=== PATIENT | female | born 1935 | race Caucasian/White ===

== ENCOUNTER 2019-04-14 10:00 | Outpatient (RCR) | payer MEDICARE, SELFPAY ==
--- NOTE | 2019-01-07 14:25 | PCSTNOTE ---
The treatment documented on this account is a continuation of the treatment documented on visit number [id number] in [employer] EMR. Please see documentation on both accounts to view progress. The Plan of Care has been transitioned and updated within the new V#. I have addressed and agree with the discipline specific Problems, Interventions, and Goals for the current certification period. Completed interventions, outcomes, and problems have been marked as Inactive to facilitate the copying of the Care plan routine for recurring accounts.
--- NOTE | 2019-01-10 11:20 | PCPTNOTE ---
The treatment documented on this account is a continuation of the treatment documented on visit number [id number] in [employer]MR. Please see documentation on both accounts to view progress. The Plan of Care has been transitioned and updated within the new V#. I have addressed and agree with the discipline specific Problems, Interventions, and Goals for the current certification period. Completed interventions, outcomes, and problems have been marked as Inactive to facilitate the copying of the Care plan routine for recurring accounts.
--- NOTE | 2019-01-14 10:20 | OTOPEVAL ---
OT RE-EVALUATION 01/14/19 Thank you for referring this patient to [facility]. Recommend continued skilled OT 2x/week for 4 weeks. Please review, sign, date and return this re-evaluation summary KIERSTEN. I agree with and certify that the following plan of care is medically necessary. Referring Physician Date *OT Outpatient Re-Evaluation Start: 01/14/19 07:55 Document 01/14/19 07:56 JANETTE (Rec: 01/14/19 10:11 JANETTE) Re-Evaluation Information Subjective Information Functional gains since SOC: As Reported By Patient/ Patient and daughter report Family improved ability to use B hands to press keys on piano ( wasn't able to with L hand at all), using left hand to put shoes, able to wash herself in the shower with B hands, combing hair, improved coloring abilities, and significantly better with transfers. Pain Assessment Timing of Pain Assessment Timing of Pain Assessment Re-assessment Pain Scale Pain Scale Used Numeric (1 - 10) Self Report Pain Assessment Left Groin Reported Pain Level 3 Pain Description Aching,Dull Pain Aggravating Factors Walking Pain Relief Interventions Used By Medication Patient Pain Score Pain Score 3: Self Report Upper Extremity Range of Motion General Upper Extremity Range of Motion Reason Not Measured WNL/Left,WNL/Right Upper Extremity Muscle Strength Testing Scapular/Shoulder Left Shoulder Flexion Strength 4 Good Shoulder Extension Strength 4 Good Shoulder Abduction Strength 4- Good - Shoulder Adduction Strength 4+ Good + Right Shoulder Flexion Strength 4+ Good + Shoulder Extension Strength 4+ Good + Shoulder Abduction Strength 4 Good Shoulder Adduction Strength 4+ Good + Elbow/Forearm Left Elbow Flexion Strength 4 Good Elbow Extension Strength 4 Good Forearm Pronation Strength 4 Good Forearm Supination Strength 4 Good Right Elbow Flexion Strength 4+ Good + Elbow Extension Strength 4+ Good + Forearm Pronation Strength 4+ Good + Forearm Supination Strength 4+ Good + Wrist Strength Left Wrist Flexion Strength 4- Good - Wrist Extension Strength 4- Good - Wrist Radial Deviation 4- Good - Wrist Ulnar Deviation 4- Good - Right Wrist Flexion Strength 4 Good Wrist Extension Strength 4 Good Wrist Radial Deviation 4 Good Wrist Ulnar Deviation 4 Good
--- NOTE | 2019-01-14 14:33 | STOPEVAL ---
Thank you for referring this patient to [facility]. Continued Speech Therapy is recommended 2xweek/for 4 weeks. Please review, sign, date and return this plan of care KIERSTEN. I agree with and certify that the following plan of care is medically necessary. Referring Physician Date *ST Outpatient Evaluation Start: 01/14/19 10:09 Freq: Status: Active Protocol: Document 01/14/19 10:10 BECMANNYRT (Rec: 01/14/19 11:03 [email or web address]) Therapy Assessment Status Assessment Status Assessment Status Re-evaluation Pain Assessment Timing of Pain Assessment Timing of Pain Assessment Re-assessment Self Report Self Report Pain Level 0 Pain Score Pain Score 0: Self Report Language Evaluation Auditory Comprehension Body Part Identification (% Accuracy (0- 100 100)) Object Identification (% Accuracy (0-100 100 )) Simple Yes/No Questions (% Accuracy (0- 100 100)) Complex Yes/No Questions (% Accuracy (0- 100 100)) Auditory Comprehension of Simple 80 Paragraphs (% Accuracy (0-100)) Response Latency Mild Deficits Additional Auditory Comprehension Improving accuracy and speed Comments of processing Reading Comprehension Numeral Comprehension (% Accuracy (0-100 100 )) Numeral Comprehension Comments slow but accurate Single Word Comprehension (% Accuracy (0 100 -100)) Comprehension: 3-4 Words (% Accuracy (0- 100 100)) Comprehension: 5-7 Words (% Accuracy (0- 75 100)) Overall Reading Comprehension Ability Moderate Deficits Comments Related to Reading Reading ability is improving Comprehension Verbal Expression Connected Speech No Impairments Comments Related to Verbal Expression occasional word substitutions exhibited.Pt is aware and is able to self correct. Written Expression Ability to Copy 100% accuracy Numbers to Dictation (% Accuracy (0-100) 80 ) Comments Related to Written Expression pt is able to write to dictation but requires max cues. Cognitive Evaluation Orientation/Memory Assessment Temporal Orientation 100 Query Text:% Accuracy Spatial/Environmental Orientation 100 Query Text:% Accuracy Overall Orientation and Memory within functional limits Problem Solving Overall Problem Solving Skills within functional limits ST Clinical Summary Clinical Summary Clinical Summary Overall, the pt has achieved nearly al
--- NOTE | 2019-01-14 15:07 | PTOPEVAL ---
Thank you for referring Ashly Baxter to [facility]. Please review, sign, date and return this plan of care KIERSTEN. I agree with and certify that the following plan of care is medically necessary. Referring Physician Date *PT Outpatient Evaluation Start: 01/14/19 11:00 Freq: Status: Active Protocol: Document 01/14/19 11:35 [facility] (Rec: 01/14/19 12:09 [facility] [id number]) Therapy Assessment Status Assessment Status Assessment Status Re-evaluation Pain Assessment Self Report Self Report Pain Level 0 Pain Score Pain Score 0: Self Report Lower Extremity Muscle Strength Testing Hip Strength Left Hip Flexion Strength 4- Good - Hip Extension Strength 3- Fair - Hip Abduction Strength 3 Fair Knee Strength Left Knee Flexion Strength 4 Good Knee Extension Strength 4 Good Balance Assessment Rogers Balance Assessment Sitting to Standing Independent w/Hands Unsupported Stance Ability Supervision- 2 minutes Sitting Unsupported, Feet on Floor Safely- 2 minutes Standing to Sitting Assist, Control w/Hands Transfer Ability Supervision, Verbal Cues Unsupported Stance- Eyes Closed Supervision, 10 seconds Unsupported Stance- Feet Together Supervision to maintain Reaching Forward while Standing Safely, 2 inches supervisor modern languages Object From Floor Supervision Look Behind Shoulder - Standing Supervision w/Turning Turning 360 Degrees Supervision/Verbal Cues Unsupported Stance, Alternating Feet on Assist to Prevent Fall Stair Unsupported Tandem Stance Assist to Step-15 seconds Unilateral Leg Stance Unable,assist to not fall ROGERS Balance Evaluation Total Score (/56 26 points) Comments plus 1 for turning over shoulder = 27/56 (increased from 3) Time Up Go (TUG) Timed Up and Go Test (TUG) (Seconds) 30 Assistive Devices Walker, Wheeled 5 Time Sit to Stand Time in Seconds 17.18 5 Time Sit to Stand Comments with arm rests Query Text:Normative Data: If Greater Than 15 Seconds, 74% Increase Risk for Recurrent Falls PT Clinical Summary Clinical Summary Protocol: PTEVCODE Clinical Summary Ashly is here ~8 weeks s/p CVA affecting left sided limbs. She also experiences decreased attention to left side and mild memory impairments. She presents today with significant increase in strength and balance compared t
--- NOTE | 2019-01-21 08:26 | PCPTNOTE ---
Patient called & cancelled scheduled appointment this date due to weather
--- NOTE | 2019-01-21 10:20 | PCOTNOTE ---
Pt daughter called and cancelled appt this date 04/13 didn't want to take her out in 10 degree weather
--- NOTE | 2019-02-10 11:26 | OTOPEVAL ---
OT RE-EVALUATION NOTE 02/10/19 Thank you for referring this patient to [facility]. As noted below, Ashly is making progress toward all of her goals. She will benefit from continued skilled OT 2x/week for 4 weeks. Please review, sign, date and return this plan of care KIERSTEN. I agree with and certify that the following plan of care is medically necessary. Referring Physician Date Attending Provider: JAYA RICKS MD *OT Outpatient Re-Evaluation Therapy Assessment Status Assessment Status Re-evaluation Evaluation Information Problem Diagnosis CVA Onset 11/21/18 Additional Evaluation Detail Vee Limon , has been participating in outpatient OT since 12/17/18 following a stroke. OT has been focusing on oculo-motor and visual perceptual skills, UE strengthening, and functional coordination to facilitate return to ADL independence. Subjective Information The patient and her daughter Query Text:As Reported By Patient/ report improved abilities with Family donning socks and shoes, handwriting, toileting, transfers, and her balance during mobility with a wheeled walker. Pain Assessment Timing of Pain Assessment Timing of Pain Assessment Re-assessment Self Report Self Report Pain Level 0 Pain Score Pain Score 0: Self Report Upper Extremity Range of Motion General Upper Extremity Range of Motion Reason Not Measured WNL/Left,WNL/Right Gross Upper Extremity Range of Motion BUE AROM is WNL Comments Upper Extremity Muscle Strength Testing Scapular/Shoulder Left Shoulder Flexion Strength 4 Good Shoulder Extension Strength 4+ Good + Shoulder Abduction Strength 4- Good - Shoulder Adduction Strength 4+ Good + Right Shoulder Flexion Strength 4+ Good + Shoulder Extension Strength 4+ Good + Shoulder Abduction Strength 4+ Good + Shoulder Adduction Strength 4+ Good + Elbow/Forearm Left Elbow Flexion Strength 4 Good Elbow Extension Strength 4 Good Forearm Pronation Strength 4 Good Forearm Supination Strength 4 Good Right Elbow Flexion Strength 4+ Good + Elbow Extension Strength 4+ Good + Forearm Pronation Strength 4+ Good + Forearm Supination Strength 4+ Good + Wrist Strength Left Wrist Flexion Strength 4 Good Wrist Extension Strength 4 Good Wrist Radial Deviation 4 Good Wrist Ulnar Deviation 4 Good Wrist Strength Comme
--- NOTE | 2019-02-10 14:32 | PTOPEVAL ---
PHYSICAL THERAPY PLAN OF CARE UPDATE AND PROGRESS REPORT Thank you for referring this patient to [facility]. Ashly is scheduled to be seen 2x/week for 4 more weeks. Please review, sign, date and return this plan of care KIERSTEN. I agree with and certify that the following plan of care is medically necessary. Referring Physician Date Assessment Status Re-evaluation Evaluation Information Problem Subjective Information Ashly is participating in Query Text:As Reported By Patient/ outpatient PT since 12/17/18 Family following a CVA. She has no complaints other than left groin pain. Her daughter is taking her to see the physician regarding the groin pain. Ashly and her daughter see her improvements in function, gait, balance, and stair climbing. Pain Assessment Left Groin Reported Pain Level 2 Hip Strength Left Hip Flexion Strength 4 Good Hip Extension Strength 3 Fair Hip Abduction Strength 3 Fair Knee Strength Left Knee Flexion Strength 4+ Good + Knee Extension Strength 4+ Good + Balance Assessment Rogers Balance Assessment Sitting to Standing Independent w/Hands Unsupported Stance Ability Supervision- 2 minutes Sitting Unsupported, Feet on Floor Safely- 2 minutes Standing to Sitting Assist, Control w/Hands Transfer Ability Supervision, Verbal Cues Unsupported Stance- Eyes Closed Supervision, 10 seconds Unsupported Stance- Feet Together Supervision to maintain Reaching Forward while Standing Safely, 2 inches occupational therapy specialist Object From Floor Supervision Look Behind Shoulder - Standing Turns Sideways Only Turning 360 Degrees Supervision/Verbal Cues Unsupported Stance, Alternating Feet on 2 Steps w/Minimum Assist Stair Unsupported Tandem Stance Assist to Step-15 seconds Unilateral Leg Stance Lifts Leg/Unable to Hold ROGERS Balance Evaluation Total Score (/56 32 points) Comments 32/56 (increased from 56) Timed Up and Go Test (TUG) 27seconds (improved from 30second) Assistive Devices Walker, Wheeled 5 Time Sit to Stand Time in Seconds 17.75seconds 5 Time Sit to Stand Comments with arm rests Query Text:Normative Data: If Greater Than 15 Seconds, 74% Increase Risk for Recurrent Falls Gait Assessment Gait Assessment Ambulation Assistive Devices Walker, Wheeled Weight Bearing Status - Left Full Weight Bearing Status - Right Full Maintains Weight Bearing Status Yes Ambulation Ability Contact Guard
--- NOTE | 2019-02-10 16:45 | STOPEVAL ---
Thank you for referring this patient to [facility]. Continued Speech Therapy is recommended x2/week 4. Please review, sign, date and return this plan of care KIERSTEN. I agree with and certify that the following plan of care is medically necessary. Referring Physician Date Admitting Provider: Attending Provider: PHYSICIAN NOT ON STAFF Referring Provider: *ST Outpatient RE-Evaluation Start: 01/14/19 10:09 Freq: Status: Active Protocol: Document 02/10/19 11:47 BECHERERT (Rec: 02/10/19 12:00 BECHERERT [email or web address]) Therapy Assessment Status Assessment Status Assessment Status Re-evaluation Outpatient Past Medical History Neurological History Hx Cerebrovascular Accident (CVA) Yes Evaluation Information Problem Diagnosis CVA Onset 11/21/18 Additional Evaluation Detail Vee Limon , has been participating in outpatient ST since 12/17/[address] ST has been focusing on auditory and reading comprehension as well as written expression. Subjective Information The patient and her daughter Query Text:As Reported By Patient/ report improved abilities Family written expression and reading comprehension. Prior Level of Function Activity Level (Last 3 Months) Hand Dominance Right Home Setting Home Type House Living Situation With Adult Child Prior Cognition/Communication Prior Communication Level No Impairment Prior Cognitive Function Able to Function Independently Prior Ability to Handle Finances Independent Pain Assessment Timing of Pain Assessment Timing of Pain Assessment Re-assessment Self Report Self Report Pain Level 0 Pain Scale Pain Scale Used Numeric (1 - 10) Self Report Pain Assessment Left Groin Reported Pain Level 0 Pain Score Pain Score 0: Self Report Language Evaluation Auditory Comprehension Auditory Comprehension of Complex 50 Directives (% Accuracy (0-100)) Auditory Comprehension of Simple 80 Paragraphs (% Accuracy (0-100)) Response Latency Mild Deficits Additional Auditory Comprehension Pt requires many repetitions & Comments extra time in order to comprehend/process information . Reading Comprehension Numeral Comprehension (% Accuracy (0-100 100 )) Numeral Comprehension Comments slow but accurate Comprehension: 5-7 Words (% Accuracy (0- 90 100)) Comprehension: 8-10 Words (% Accu
--- NOTE | 2019-02-13 13:50 | PCOTNOTE ---
Pt arrived for skilled OT tx this date. Pt's daughter asked therapist to check pt's BP 2/2 inc BP over last few days. Pt's BP was 187/105. Pt's MD was called and 's office stated that they were sending out a prescription for BP medication and pt should start taking meds tomorrow morning. Pt's daughter was advised of what MD's office stated. Pt was sent home with daughter and no therapy was performed this date. Pt's daughter was advised to take pt's BP a few more times today and if BP gets higher to take pt to ER.
--- NOTE | 2019-02-18 08:03 | PCOTNOTE ---
Pt's daughter called and cancelled appt this date 2/2 pt needed adjustment on pacemaker.
--- NOTE | 2019-02-18 09:16 | PCPTNOTE ---
Patient called & cancelled scheduled appointment this date due to medical procedure.
--- NOTE | 2019-02-20 07:53 | PCPTNOTE ---
Patient called & cancelled scheduled appointment this date due to having pacemaker placed.
--- NOTE | 2019-02-20 15:48 | PCSTNOTE ---
No ST this week related to medical issues and brief hospitalization.
--- NOTE | 2019-02-25 09:09 | PCPTNOTE ---
Patient called & cancelled scheduled appointment this date due to weather
--- NOTE | 2019-02-27 10:52 | OTOPEVAL ---
OT RE-EVALUATION 02/27/19 Thank you for referring this patient to [facility]. Continued skilled OT is indicated 2x/week for 4 weeks. Please review, sign, date and return this plan of care KIERSTEN. I agree with and certify that the following plan of care is medically necessary. Referring Physician Date Attending Provider: Moustapha Pratt MD *OT Outpatient Re-Evaluation Therapy Assessment Status Assessment Status Re-evaluation Outpatient Past Medical History Neurological History Hx Cerebrovascular Accident (CVA) Yes Evaluation Information Problem Diagnosis CVA Onset 11/21/18 Additional Evaluation Detail Vee Limon , has been participating in outpatient OT since 12/17/18 following a stroke. OT has been focusing on oculo-motor and visual perceptual skills, ADL retraining, UE strengthening, and functional coordination to facilitate return to PLOF and independence with ADLs. Subjective Information The patient reports improved Query Text:As Reported By Patient/ abilities with completing LB Family dressing on her own, handwriting skills, improved ability to toilet on her own, and increased bed mobility. Pain Assessment Timing of Pain Assessment Timing of Pain Assessment Re-assessment Self Report Self Report Pain Level 0 Pain Score Pain Score 0: Self Report Upper Extremity Range of Motion General Upper Extremity Range of Motion Reason Not Measured WNL/Left,WNL/Right Gross Upper Extremity Range of Motion BUE AROM is WNL, left shoulder Comments only tested to 90* due to pacemaker precautions. Upper Extremity Muscle Strength Testing Scapular/Shoulder Left Shoulder Strength Comments Not tested due to pacemaker precautions. Right Shoulder Flexion Strength 4+ Good + Shoulder Extension Strength 4+ Good + Shoulder Abduction Strength 4 Good Shoulder Adduction Strength 4+ Good + Elbow/Forearm Left Elbow Flexion Strength 4 Good Elbow Extension Strength 4 Good Forearm Pronation Strength 4- Good - Forearm Supination Strength 4- Good - Right Elbow Flexion Strength 4+ Good + Elbow Extension Strength 4+ Good + Forearm Pronation Strength 4+ Good + Forearm Supination Strength 4+ Good + Wrist Strength Left Wrist Flexion Strength 4 Good Wrist Extension Strength 4 G
--- NOTE | 2019-02-27 12:44 | PTOPEVAL ---
PHYSICAL THERAPY PLAN OF CARE UPDATE AND PROGRESS REPORT Thank you for referring this patient to [facility]. Continue PT for 2x/week for 4 weeks. Please review, sign, date and return this plan of care KIERSTEN. I agree with and certify that the following plan of care is medically necessary. Referring Physician Date Re-evaluation Outpatient Past Medical History Neurological History Hx Cerebrovascular Accident (CVA) Yes Evaluation Information Problem Diagnosis CVA Onset 11/21/18 Subjective Information Ashly Baxter has yunior Query Text:As Reported By Patient/ participating in PT since 12/17 Family . She had a pacemaker placed 02/17/19 and she has been cleared by physician to return to therapy. She and caregiver report she had a bad week last week, but is doing much better now. She also received an antibiotic last week. Rogers Balance Assessment Sitting to Standing Independent w/Hands Unsupported Stance Ability Supervision- 2 minutes Sitting Unsupported, Feet on Floor Safely- 2 minutes Standing to Sitting Assist, Control w/Hands Transfer Ability Safely, Hand Use Unsupported Stance- Eyes Closed Supervision, 10 seconds Unsupported Stance- Feet Together Supervision to maintain Reaching Forward while Standing Safely, 2 inches supervisor asbestos removal Object From Floor Supervision Look Behind Shoulder - Standing Shifts Weight Unilateral Turning 360 Degrees Supervision/Verbal Cues Unsupported Stance, Alternating Feet on 4 Steps w/Supervision Stair Unsupported Tandem Stance Assist to Step-15 seconds Unilateral Leg Stance Lifts Leg/Unable to Hold ROGERS Balance Evaluation Total Score (/56 35 points) Time Up Go (TUG) Timed Up and Go Test (TUG) (Seconds) 22 Assistive Devices Walker, Wheeled Comments improved from 27seconds 5 Time Sit to Stand Time in Seconds 13.91 5 Time Sit to Stand Comments with arm rests; improved from Query Text:Normative Data: If Greater 17.75seconds Than 15 Seconds, 74% Increase Risk for Recurrent Falls Gait Assessment 2 Minute Walk Total Distance Walked (feet) 245 2 Minute Walk Test Comments increased from 208 Clinical Summary Patient presents for PT re- evaluation after being hospitalized for pacemaker placement. Since her last re- evaluation she has improved toward improved balance,
--- NOTE | 2019-02-27 17:41 | STOPEVAL ---
OUTPATIENT SPEECH THERAPY PLAN OF CARE/PROGRESS REPORT Thank you for referring this patient to [facility]. Please review, sign, date and return this plan of care KIERSTEN. I agree with and certify that the following plan of care is medically necessary. Referring Physician Date Admitting Provider: Attending Provider: PHYSICIAN NOT ON STAFF Referring Provider: ANDREW Outpatient RE Evaluation Start: 01/14/19 10:09 Freq: Status: Active Protocol: Document 02/27/19 09:52 KELVIN (Rec: 02/27/19 10:03 BECHERERT [email or web address]) Therapy Assessment Status Assessment Status Assessment Status Re-evaluation Outpatient Past Medical History Neurological History Hx Cerebrovascular Accident (CVA) Yes Prior Level of Function Activity Level (Last 3 Months) Hand Dominance Right Home Setting Home Type House Living Situation With Adult Child Prior Cognition/Communication Prior Communication Level No Impairment Prior Cognitive Function Able to Function Independently Prior Ability to Handle Finances Independent Pain Assessment Timing of Pain Assessment Timing of Pain Assessment Pre-Treatment Self Report Self Report Pain Level 0 Pain Scale Pain Scale Used Numeric (1 - 10) Self Report Pain Assessment Left Groin Reported Pain Level 0 Pain Score Pain Score 0: Self Report Language Evaluation Auditory Comprehension Auditory Comprehension of Complex 90 Directives (% Accuracy (0-100)) Auditory Comprehension of Simple 80 Paragraphs (% Accuracy (0-100)) Auditory Comprehension of Moderate 40 Paragraphs (% Accuracy (0-100)) Overall Auditory Comprehension Ability Mild Deficits Reading Comprehension Name Recognition Yes Comprehension: 8-10 Words (% Accuracy (0 80 -100)) Comprehension of Simple Paragraphs (% 88 Accuracy (0-100)) Comprehension of Moderate Paragraphs (% 50 Accuracy (0-100)) Comprehension of Functional Reading mild/mod Materials Verbal Expression Connected Speech No Impairments Response Latency Moderate Deficits Comments Related to Verbal Expression Occasional word substitutions are exhibited. Pt is aware and is able to self correct. Written Expression Phrase Production 60 Functional Writing Biographical info: 60% accuracy Overall Written Expression Ability Moderate Deficits Speech Therapy Teaching Adult Speech Therapy Teaching Swallowing/Communication Education Topic Aphasia As Pertains to Caregiver Communications,Test Results Recipient(s) of Teaching Patient,Primary Caregiv
--- NOTE | 2019-03-06 10:37 | PCOTNOTE ---
Pt arrived for skilled OT treatment. Pt's caregiver stated that pt had syncopal episode yesterday after pt finished her shower. Pt's MD was called, pt was not take to ER 2/. Therapist checked pt's BP prior to treatment. Pt's BP was 149/80, HR 59. Discussed that with pt's recent Heart Monitor placement, pt's HR should no fall below 60. Therapist sent pt home 04/13 HR prior to any activity/exercise. Pt's caregiver was asked to follow up with pt's doctor/family for further evaluation.
--- NOTE | 2019-03-06 11:15 | PCPTNOTE ---
Patient's appointment cancelled this date due to health concern. Please see OT note for more details.
--- NOTE | 2019-03-27 11:06 | PTOPEVAL ---
PHYSICAL THERAPY PLAN OF CARE UPDATE AND PROGRESS REPORT Thank you for referring this patient to [facility]. Vee will continue PT 2x/week for 4 weeks. Please review, sign, date and return this plan of care KIERSTEN. I agree with and certify that the following plan of care is medically necessary. Referring Physician Date Re-evaluation Outpatient Past Medical History Neurological History Hx Cerebrovascular Accident (CVA) Yes Evaluation Information Problem Diagnosis CVA Onset 11/21/18 Additional Evaluation Detail BP prior to treatment: 147/69. BP after treatment: 136/71 Subjective Information Ashly Baxter has yunior Query Text:As Reported By Patient/ participating in PT since 12/17 Family . Vee had an injection to her left hip last week and has had no pain since then. She and caregiver report on home exercises and are eager to work. Caregiver states she eats well and has snacks also. Pain Score 0: Self Report Hip Strength Left Hip Flexion Strength 4- Good - Hip Extension Strength 3 Fair Hip Abduction Strength 3 Fair Knee Strength Left Knee Flexion Strength 4+ Good + Knee Extension Strength 4+ Good + Balance Assessment Sitting to Standing Independent w/Hands Unsupported Stance Ability Supervision- 2 minutes Sitting Unsupported, Feet on Floor Safely- 2 minutes Standing to Sitting Assist, Control w/Hands Transfer Ability Safely, Hand Use Unsupported Stance- Eyes Closed Supervision, 10 seconds Unsupported Stance- Feet Together Supervision to maintain Reaching Forward while Standing Safely, 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 From Floor Supervision Look Behind Shoulder - Standing Shifts Weight Unilateral Turning 360 Degrees Supervision/Verbal Cues Unsupported Stance, Alternating Feet on 2 Steps w/Minimum Assist Stair Unsupported Tandem Stance Small Step- 30 seconds Unilateral Leg Stance Lifts Leg/Unable to Hold ROGERS Balance Evaluation Total Score (/56 35 points) Comments 1month ago = 35/56 Time Up Go (TUG) 18seconds Assistive Devices Walker, Wheeled Comments improved from 22seconds 5 Time Sit to Stand Time in Seconds 14.06 5 Time Sit to Stand Comments with arm rests; (was 13.75 4 Query Text:Normative Data: If Greater weeks ago) Than 15 Seconds, 74% Increase Risk for Recurrent Falls Gait Assessment 2 Minute Walk Total Distance Walked 256ft 2 Minute Walk Test Comments increased from 245
--- NOTE | 2019-03-27 11:48 | OTOPEVAL ---
OCCUPATIONAL THERAPY RE-EVALUATION NOTE 03/27/2019 Thank you for referring this patient to [facility]. As described below, continued skilled OT is indicated 2x/week for 4 weeks. Please review, sign, date and return this re-evaluation note KIERSTEN. I agree with and certify that the following plan of care is medically necessary. Referring Physician Date Attending Provider: MIESHA BRIDGES MD *OT Outpatient Re-Evaluation Evaluation Information Problem Diagnosis s/p CVA Onset 11/21/18 Additional Evaluation Detail Vee Limon , has been participating in outpatient OT since 12/17/18 due to residual deficits following CVA. OT has been focusing on UB strengthening, fine motor coordination, and return to leisure activities such as leonie. Subjective Information Patient and her caregiver Query Text:As Reported By Patient/ report good compliance with Family home exercises. She has been working on her [employer] project daily and continues to get better with it. She has been improving with playing the piano, dressing, and handwriting also. Pain Assessment Timing of Pain Assessment Timing of Pain Assessment Re-assessment Self Report Self Report Pain Level 0 Pain Score Pain Score 0: Self Report Upper Extremity Range of Motion General Upper Extremity Range of Motion Reason Not Measured WNL/Left,WNL/Right Upper Extremity Muscle Strength Testing Scapular/Shoulder Left Shoulder Flexion Strength 4 Good Shoulder Extension Strength 4+ Good + Shoulder Abduction Strength 4+ Good + Shoulder Adduction Strength 4+ Good + Right Shoulder Flexion Strength 4+ Good + Shoulder Extension Strength 4+ Good + Shoulder Abduction Strength 4 Good Shoulder Adduction Strength 4+ Good + Elbow/Forearm Left Elbow Flexion Strength 4+ Good + Elbow Extension Strength 4+ Good + Forearm Pronation Strength 4 Good Forearm Supination Strength 4 Good Elbow/Forearm Strength Comments Flexion/Extension improved from 4/5. Forearm roation improved from 4-/5. Right Elbow Flexion Strength 4+ Good + Elbow Extension Strength 4+ Good + Forearm Pronation Strength 4+ Good + Forearm Supination Strength 4+ Good + Elbow/Forearm Strength Comments (R) elbow/forearm remained WFL
--- NOTE | 2019-03-27 13:45 | STOPEVAL ---
Addendum entered by MAXIM Santos 03/27/19 13:54: OUTPATIENT SPEECH THERAPY PROGRESS REPORT AND CARE PLAN UPDATE: Original Note: Thank you for referring this patient to [facility]. Speech Therapy re evaluation on this date revealed that pt is progressing in all areas and is achieving short term goals. Continuance of ST is therefore warranted as pt continues to present with potential for further improvement. It is recommended that ST continue x2 week 4. Please review, sign, date and return this plan of care KIERSTEN. I agree with and certify that the following plan of care is medically necessary. Referring Physician Date Attending Provider: PHYSICIAN NOT ON STAFF Referring Provider: *ST Outpatient Re-Evaluation Start: 01/14/19 10:09 Freq: Status: Active Protocol: Document 03/27/19 09:08 KELVIN (Rec: 03/27/19 10:05 KELVIN [email or web address]) Therapy Assessment Status Assessment Status Assessment Status Re-evaluation Outpatient Past Medical History Neurological History Hx Cerebrovascular Accident (CVA) Yes Pain Assessment Timing of Pain Assessment Timing of Pain Assessment Assessment Self Report Self Report Pain Level 0 Pain Scale Pain Scale Used Numeric (1 - 10) Self Report Pain Assessment Left Groin Reported Pain Level 0 Pain Score Pain Score 0: Self Report Language Evaluation Auditory Comprehension Auditory Comprehension of Moderate 87 Paragraphs (% Accuracy (0-100)) Auditory Comprehension of Complex 60 Paragraphs (% Accuracy (0-100)) Response Latency Mild Deficits Overall Auditory Comprehension Ability Mild Deficits Additional Auditory Comprehension consistently improving Comments Reading Comprehension Comprehension of Moderate Paragraphs (% 92 Accuracy (0-100)) Comprehension of Functional Reading Mild Deficits Materials Response Latency Mild Deficits Overall Reading Comprehension Ability Mild Deficits Comments Related to Reading consistently improving Comprehension Written Expression Phrase Production 90% accuracy Sentence Production Pt has been practicing simple sentence writing at home with good basic ability and accuracy Overall Written Expression Ability Mild Deficits ST Clinical Summary Clinical Summary Clinical Summary Pt has completed 22 speech therapy treatments; ST has primarily focused on improving auditory & reading comprehension & written expression; Pt has and continues to achieve short term goals and is
--- NOTE | 2019-04-03 08:50 | PCPTNOTE ---
Patient called & cancelled scheduled appointment this date due to inclement weather.
--- NOTE | 2019-04-15 14:54 | PCPTNOTE ---
This treatment is being continued on visit number [id number]. Please see documentation on both accounts to view progress. Completed interventions, outcomes, and problems have been marked as Inactive to facilitate the copying of the Care plan routine for recurring accounts.
--- NOTE | 2019-04-15 15:30 | PCOTNOTE ---
This treatment is being continued on visit number [id number]. Please see documentation on both accounts to view progress. Completed interventions, outcomes, and problems have been marked as Inactive to facilitate the copying of the Care plan routine for recurring accounts.
--- NOTE | 2019-04-16 16:33 | PCSTNOTE ---
This treatment is being continued on visit number [id number]. Please see documentation on both accounts to view progress. Completed interventions, outcomes, and problems have been marked as Inactive to facilitate the copying of the Care plan routine for recurring accounts.
--- NOTE | 2019-04-24 08:14 | PCOTNOTE ---
Documentation on 04/17/19 was charted on wrong account. Documentation was noted on new account on 04-24-19.
== END 2019-04-14 23:59 | disposition home or self-care (01) ==
LOC: ANHPT 10:00
DX: I69.354 Hemiplegia and hemiparesis following cerebral infarction affecting left non-dominant side (principal); R41.89 Other symptoms and signs involving cognitive functions and awareness; R53.1 Weakness
CPT/HCPCS: 92507; 92526; 97110; 97112; 97127; 97129; 97530; G0515

== ENCOUNTER 2019-07-10 10:00 | Outpatient (RCR) | payer MEDICARE, SELFPAY ==
--- NOTE | 2019-04-15 14:54 | PCPTNOTE ---
The treatment documented on this account is a continuation of the treatment documented on visit number [id number]. Please see documentation on both accounts to view progress. The Plan of Care has been transitioned and updated within the new V#. I have addressed and agree with the discipline specific Problems, Interventions, and Goals for the current certification period. Completed interventions, outcomes, and problems have been marked as Inactive to facilitate the copying of the Care plan routine for recurring accounts.
--- NOTE | 2019-04-15 15:29 | PCOTNOTE ---
The treatment documented on this account is a continuation of the treatment documented on visit number [id number]. Please see documentation on both accounts to view progress. The Plan of Care has been transitioned and updated within the new V#. I have addressed and agree with the discipline specific Problems, Interventions, and Goals for the current certification period. Completed interventions, outcomes, and problems have been marked as Inactive to facilitate the copying of the Care plan routine for recurring accounts.
--- NOTE | 2019-04-16 16:35 | PCSTNOTE ---
The treatment documented on this account is a continuation of the treatment documented on visit number [id number]. Please see documentation on both accounts to view progress. The Plan of Care has been transitioned and updated within the new V#. I have addressed and agree with the discipline specific Problems, Interventions, and Goals for the current certification period. Completed interventions, outcomes, and problems have been marked as Inactive to facilitate the copying of the Care plan routine for recurring accounts.
--- NOTE | 2019-04-23 11:17 | PTOPEVAL ---
PHYSICAL THERAPY PLAN OF CARE UPDATE AND PROGRESS REPORT Thank you for referring this patient to [facility]. I recommend Vee continue physical therapy 2x/week for 4 weeks. Please review, sign, date and return this plan of care KIERSTEN. I agree with and certify that the following plan of care is medically necessary. Referring Physician Date Assessment Status Re-evaluation Outpatient Past Medical History Neurological History Hx Cerebrovascular Accident (CVA) Yes Evaluation Information Problem Diagnosis s/p CVA Onset 11/21/18 Subjective Information Patient has chosen to start Query Text:As Reported By Patient/ using a straight cane for Family ambulation. She is deteremined to be able to walk to the bathroom on her own. She is very compliant to HEP. On days she has OT, she does her PT HEP and vice versa. Pain Assessment Timing of Pain Assessment Timing of Pain Assessment Pre-Treatment Self Report Self Report Pain Level 0 Pain Score Pain Score 0: Self Report Additional Pain Score Comments p Lower Extremity Muscle Strength Testing Hip Strength Left Hip Flexion Strength 3- Fair - Hip Strength Comments unable to determine if left hip strength deficit is due to true weakness or secondary to pain Knee Strength Left Knee Flexion Strength 4- Good - Knee Extension Strength 4- Good - Balance Assessment Rogers Balance Assessment Sitting to Standing Independent w/Hands Unsupported Stance Ability Supervision- 2 minutes Sitting Unsupported, Feet on Floor Safely- 2 minutes Standing to Sitting Safely, Minimal Hand Use Transfer Ability Safely, Minimal Hand Use Unsupported Stance- Eyes Closed Supervision, 10 seconds Unsupported Stance- Feet Together Supervision to maintain Reaching Forward while Standing Safely, 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
--- NOTE | 2019-04-24 08:17 | PCOTNOTE ---
This note is to replace regular documentation for outpt visit on 04-17-19. Pt was seen on 04-17-19 for skilled OT treatment 60 minute treatment session. Pt received 2 units of therapeutic exercise for 30 minutes and 2 units of neuromuscular retraining for 30 minutes. Pt performed hand exercises using red theraputty. Pt performed pain management nurse strengthening, utilizing tip, palmar and lateral pinches of bilateral hands. Pt performed 2 sets x 20 reps using each digit. Pt instructed on finger digs using each digit individually. Pressing each finger into theraputty and attempting to equally applying pressure with each finger for 2 setx x 10 reps. Pt performed coordination activities performed finger tapping activity to inc hand coordination. Pt attempted to tap each digit 10 times. Pt found this task divvicult but was able to increase coordination with practice. Pt required AAROM initially with this task. P was able to perform 2 sets x 10 reps for each finger. Pt has been trying to play the piano and is frustrated with difficulties using individual fingers of L hand. Pt also performed bilateral gross motor coordination activity began with hand tapping 2/2 decreased motor planning. Pt has difficlty with active wrist extension of L hand. Pt required AAROM for 3-4 attempts 2/2 dec motor planning. Pt is able to increase body mechanics with verbal/tactile cues. Pt was instructed on exercise teaching to perform coordination performing AROM using bilateral hands. Pt and family member were present for exercise teaching. Barriers to learning are motor planning. Pt's readiness to learning is excellent. Teaching method utilized was demonstration, discussion, one-on=one instruction and pt was given written instruction. Pt and family verbalized understanding and pt was able to return demonstration. Body mechanics teaching included body alignment while seated, pertaining to neurological deficits. Pt and pt's family were present for training. Pt's learning preferences are demonstration, discussion and one-on-one instruction. Pt's readiness to learn are excellent. Therapist utilized demonstration, discussion, one-on-one instruction. Pt required verbal cues 2/2 leans toward right when using L hand, attempts to utilize compensatory technique of using L shoulder during activities. Pt's daughter was present during treatment session and stated that she had noticed that pt does that when attempting activities that are more difficult. Therapy treatment summary: Pt problems addressed this date were Dec strength of B hands, dec L hand coordination, endurance. Next treatment plan: Plan to continue per POC Deficits requiring skilled interventions: Decreased coordination, Decreased endurance, Decreased strength. Type of skilled intervention used were: Adapted, Educated, Modeled, Modified. Response to treatment: Increased flexibility decreased strength. Goals worked towards on this treatment: Improved Impairment. OT services indicated: Yes.
--- NOTE | 2019-04-24 11:10 | STOPEVAL ---
Thank you for referring this patient to [facility]. Continued ST is recommended x1 week 4 to continue to improve organization, problem solving /reasoning as well as higher levels of reading and writing. Please review, sign, date and return this plan of care KIERSTEN. I agree with and certify that the following plan of care is medically necessary. Referring Physician Date Admitting Provider: Attending Provider: PHYSICIAN NOT ON STAFF Referring Provider: *ST Outpatient RE Evaluation Start: 04/16/19 13:48 Freq: Status: Active Protocol: Document 04/24/19 10:15 BECMANNYRT (Rec: 04/24/19 11:09 BECHERERT [email or web address]) Therapy Assessment Status Assessment Status Assessment Status Re-evaluation Outpatient Past Medical History Neurological History Hx Cerebrovascular Accident (CVA) Yes Pain Assessment Timing of Pain Assessment Timing of Pain Assessment Re-assessment Self Report Self Report Pain Level 0 Pain Scale Pain Scale Used Numeric (1 - 10) Self Report Pain Assessment Left Groin Reported Pain Level 0 Pain Score Pain Score 0: Self Report Language Evaluation Auditory Comprehension Auditory Comprehension of Complex 91 Paragraphs (% Accuracy (0-100)) Response Latency No Impairments Overall Auditory Comprehension Ability WFL Additional Auditory Comprehension No further goals for auditory Comments comprehension Reading Comprehension Comprehension of Complex Paragraphs (% 90 Accuracy (0-100)) Response Latency WFL Comments Related to Reading 10+ moderately complex sent's Comprehension w/ 94% acc; functional reading : min cues Written Expression Sentence Production writing 6+ word sentences with min cues. Functional Writing min cues required Response Latency Mild Deficits Overall Written Expression Ability nearly WFL Cognitive Evaluation Thought Organization Functional Math: Percent of Accuracy 0- 80 100 (%) Overall Thought Organization Ability min cues required Thought Organization Comments sequence 4 written steps:50%; 2 digit computation level Speech Therapy Teaching Adult Speech Therapy Teaching As Pertains to Test Results Recipient(s) of Teaching Patient,Primary Caregiver Learning Preferences One-on-One Instruction Readiness to Learn Excellent Teaching Method(s) Demonstration,One-On-One Instruction Response(s) to Teaching Verbalizes Understanding ST Clinical Summary Clinical Summary Clinical Summary Patient presents for ST re- evaluation today. Since her
--- NOTE | 2019-04-24 11:25 | PCSTNOTE ---
This note is to replace regular documentation for outpt visit on 04-15-19. Pt was seen on 04-15-[address] treatment 60 minute treatment session. Pt received 60 minutes of speech/language treatment. KX modifier required: yes. Treatment day #27. Pt reported 0/10 pain. Pt performed functional reading comprehension and functional math exercises. Functional reading was performed wiht 80% accuracy with moderate cues. Functional math was completed with 80% accuracy with moderate visual cueing. ST Teaching: to pt and her daughter via group instruction Structured tasks: reading comprehension Type of skilled intervention used: Educated, Modified, Progressed Response to treatment: improved impairment. Next treatment session: continue POC Deficits requiring skilled ST: cognitive and decreased ability to understand written output and writing. ST services indicated: Yes.
--- NOTE | 2019-04-24 11:31 | OTOPEVAL ---
Thank you for referring this patient to [facility]. Please review, sign, date and return this plan of care KIERSTEN. I agree with and certify that the following plan of care is medically necessary. Referring Physician Date Admitting Provider: Attending Provider: PHYSICIAN NOT ON STAFF Referring Provider: *OT Outpatient Evaluation Start: 04/15/19 15:19 Freq: Status: Active Protocol: Document 04/24/19 09:35 JANETTE (Rec: 04/24/19 10:02 JANETTE [email or web address]) Therapy Assessment Status Assessment Status Assessment Status Re-evaluation Outpatient Past Medical History Neurological History Hx Cerebrovascular Accident (CVA) Yes Evaluation Information Problem Diagnosis s/p CVA Onset 11/21/18 Additional Evaluation Detail Vee Limon , has been participating in outpatient OT since 12/17/18 due to residual deficits following CVA. OT has been focusing on UB strengthening, (R) sided apraxia, (L) sided ataxia, fine motor coordination, and return to independence with ADLs, playing piano, and crocheting. 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 Subjective Information Patient and her caregiver Query Text:As Reported By Patient/ report good compliance with Family HEPs. She has been working daily on a [employer] project and recently flew through a new [employer]. In the past month she has improved to stand-by assist with toileting (supervision for her safety and balance). She improved to 90% ability with handwriting and feeding herself with the right hand. She has progressed to using a cane and is egar to start helping with getting herself snacks and beverages now that she has a free hand to carry during mobility tasks . Pain Assessment Timing of Pain Assessment Timing of Pain Assessment Re-assessment Self Report Self Report Pain Level 0
--- NOTE | 2019-05-21 14:19 | PTOPEVAL ---
PHYSICAL THERAPY PLAN OF CARE UPDATE AND PROGRESS REPORT Thank you for referring this patient to [facility]. I recommend Vee continue PT 2x/week for 4 weeks with re-evaluation to determine further PT needs. Please review, sign, date and return this plan of care KIERSTEN. I agree with and certify that the following plan of care is medically necessary. Referring Physician Date Outpatient Past Medical History Neurological History Hx Cerebrovascular Accident (CVA) Yes Evaluation Information Problem Diagnosis s/p CVA Onset 11/21/18 Subjective Information Ashly Baxter is reporting Query Text:As Reported By Patient/ feeling more safe and Family independent. She was using her cane and sometimes hand hold assist, but has realized she has greater independence if she uses the walker so she is using her walker more often now. Continues to report left hip pain that limits hip flexion activities that does lead to decreased safety. Left Groin Reported Pain Level 3 Pain Score Pain Score 3: Self Report Additional Pain Score Comments took two tylenol this morning for left hip pain Lower Extremity Range of Motion Hip Range of Motion Left Hip Medial Rotation - Passive 30 Hip Range of Motion Comments reports mild tenderness at end range of left IR. Lower Extremity Muscle Strength Testing Hip Strength Left Hip Flexion Strength 3- Fair - Hip Abduction Strength 3+ Fair + Knee Strength Left Knee Flexion Strength 4 Good Knee Extension Strength 4 Good Palpation Assessment Palpation Palpation tender to palpation over left iliopsoas tendon at femoral triangle Special Tests-Lower Extremity Hip Special Tests Trendelenburg Sign Positive Right Hip Scouring Negative Left FREDDY Negative Left FADIR Negative Left Balance Assessment Sitting to Standing Independent w/out Hands Unsupported Stance Ability Safely- 2 minutes Sitting Unsupported, Feet on Floor Safely- 2 minutes Standing to Sitting Safely, Minimal Hand Use Transfer Ability Safely, Minimal Hand Use Unsupported Stance- Eyes Closed Safely, 10 seconds Unsupported Stance- Feet Together Independent, 1 minute Reaching Forward while Standing Safely, 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
--- NOTE | 2019-05-22 10:39 | OTOPEVAL ---
OCCUPATIONAL THERAPY DISCHARGE REPORT 05/22/2019 Thank you for referring this patient to [facility]. Recommending discharge from skilled OT at this time for functional progress plateau. Patient and her caregivers are independent with all home programs. Please review, sign, date and return this D/C Report KIERSTEN. I agree with and certify that the following plan of care is medically necessary. 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 OT has been focusing on UB strengthening, (R) sided apraxia, (L) sided ataxia, fine motor coordination, and return to independence with ADLs, playing piano, and crocheting. 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 Subjective Information Vee reports improved Query Text:As Reported By Patient/ independence with going to the Family bathroom on her own, light cooking such as making cookies, and getting dressed on her own is getting much easier . Pt's caregiver reports that she is using the left UE more, incorporating the left into more activities without cues. She continues to be very motivated and compliant with her home programs. Pain Assessment Timing of Pain Assessment Timing of Pain Assessment Re-assessment Self Report Self Report Pain Level 0 Pain Score Pain Score 0: Self Report Upper Extremity Muscle Strength Testing Scapular/Shoulder Left Shoulder Flexion Strength 4 Good Shoulder Extension Strength 4+ Good + Shoulder Abduction Strength 4 Good Shoulder Adduction Strength 4+ Good + Shoulder Medial Rotation Strength 4 Good Shoulder Lateral Rotation Strength 4- Good - Right Shoulder Flexion Strength 4+ Good + Shoulder Extension Strength 4+ Good + Shoulder Abduction Strength 4 Good Shoulder Adduction Strength 4+ Good + Shoulder Medial Rotation Strength 4 Good Shoulder Lateral Rotation Strength 4 Good Elbow/Forearm
--- NOTE | 2019-05-22 12:33 | STOPEVAL ---
SPEECH THERAPY DISCHARGE: Thank you for referring this patient to [facility]. Pt has completed 32 ST sessions and has achieved all set goals. At this time, no further speech therapy is warranted. Please review, sign, date and return this discharge summary KIERSTEN. I agree with and certify that the following plan of care is medically necessary. Referring Physician Date Admitting Provider: Attending Provider: PHYSICIAN NOT ON STAFF Referring Provider: * Outpatient Evaluation Start: 04/16/19 13:48 Freq: Status: Active Protocol: Document 05/22/19 11:16 BECHERERT (Rec: 05/22/19 12:33 BECHERERT [email or web address]) Therapy Assessment Status Assessment Status Assessment Status Discharge Outpatient Past Medical History Neurological History Hx Cerebrovascular Accident (CVA) Yes Pain Assessment Timing of Pain Assessment Timing of Pain Assessment Pre-Treatment Self Report Self Report Pain Level 0 Pain Scale Pain Scale Used Numeric (1 - 10) Self Report Pain Assessment Left Groin Reported Pain Level 0 Pain Score Pain Score 0: Self Report Language Evaluation Auditory Comprehension Body Part Identification (% Accuracy (0- 100 100)) Object Identification (% Accuracy (0-100 100 )) Simple Yes/No Questions (% Accuracy (0- 100 100)) Complex Yes/No Questions (% Accuracy (0- 100 100)) Auditory Comprehension of Complex 100 Directives (% Accuracy (0-100)) Response Latency WFL Overall Auditory Comprehension Ability WFL Reading Comprehension Numeral Comprehension (% Accuracy (0-100 100 )) Single Word Comprehension (% Accuracy (0 100 -100)) Comprehension: 3-4 Words (% Accuracy (0- 100 100)) Comprehension: 5-7 Words (% Accuracy (0- 100 100)) Comprehension: 8-10 Words (% Accuracy (0 100 -100)) Comprehension of Complex Statements (% 100 Accuracy (0-100)) Comprehension of Moderate Paragraphs (% 92 Accuracy (0-100)) Comprehension of Complex Paragraphs (% 90 Accuracy (0-100)) Comprehension of Functional Reading WFL Materials Response Latency WFL Overall Reading Comprehension Ability WFL Verbal Expression Overall Verbal Expression Ability No Impairments Written Expression Sentence Production 100% Functional Writing 90-100% Overall Written Expression Ability WFL Cognitive Evaluation Thought Organization Categorizing: Percent of Accuracy 0-100 90 (%) Thought Organization Comments may require supervision ST Clinical Summary Clinical Summary Clinical Summary
--- NOTE | 2019-06-03 08:17 | PCPTNOTE ---
Patient called & cancelled scheduled appointment till 06/17/2019 due to COVID-19.
--- NOTE | 2019-07-10 11:41 | PTOPEVAL ---
PHYSICAL THERAPY PLAN OF CARE UPDATE AND PROGRESS REPORT OF NOTE: Ashly's last progress note was written on 05/21/2019 and this PT was instructed by authorizing physician to anticipate discharge from PT after the following appointments; however, COVID-19 precautions and stay at home orders became prevalent and patient did not return to PT until 07/10/2019, 6 weeks after the progress note on 05/21/2019 was written. I recommend continuing participation in PT appointments 1x/week for 4 weeks with planned discharge at the end of the 4 weeks. Thank you for referring Ashly Larry to [facility]. Please review, sign, date and return this plan of care KIERSTEN. I agree with and certify that the following plan of care is medically necessary. Referring Physician Date Re-evaluation Diagnosis s/p CVA Onset 11/21/18 Subjective Information Vee has not been to PT in 6 Query Text:As Reported By Patient/ weeks due to COVID-19 Family Precautions and stay at home orders. She has continued to perform her home exercise program consistently and well. She and Vee (caregiver) report that she takes Tylenol to assist with hip pain and she takes a pain pill before she goes to bed which assists with her sleep. Self Report Pain Level 0 Pain Score Pain Score 0: Self Report Additional Pain Score Comments took two tylenol this morning for left hip pain Lower Extremity Muscle Strength Testing Hip Strength Left Hip Flexion Strength 3 Fair Hip Extension Strength 3+ Fair + Hip Abduction Strength 3+ Fair + Knee Strength Left Knee Flexion Strength 4 Good Knee Extension Strength 4- Good - Balance Assessment Sitting to Standing Independent w/out Hands Unsupported Stance Ability Safely- 2 minutes Sitting Unsupported, Feet on Floor Safely- 2 minutes Standing to Sitting Safely, Minimal Hand Use Transfer Ability Safely, Minimal Hand Use Unsupported Stance- Eyes Closed Safely, 10 seconds Unsupported Stance- Feet Together Independent, 1 minute Reaching Forward while Standing Safely, 5 inches medical records supervisor Object From Floor Supervision Look Behind Shoulder - Standing Shifts Weight Well Turning 360 Degrees Turns slowly, but safely Unsupported Stance, Alternating Feet on 2 Steps w/Minimum Assist Stair Unsupported Tandem Stance Holds Tandem- 30 seconds Unilateral Leg Stance Lifts Leg/Unable to Hold ROGERS Balance Evaluation Total Score (/56 45 points) Comments 1month ago = 40/56 Time Up Go (TUG) Timed Up and Go
--- NOTE | 2019-07-16 15:18 | PCPTNOTE ---
This treatment is being continued on visit number [id number]. Please see documentation on both accounts to view progress. Completed interventions, outcomes, and problems have been marked as Inactive to facilitate the copying of the Care plan routine for recurring accounts.
== END 2019-07-14 23:59 | disposition home or self-care (01) ==
LOC: ANHPT 10:00
DX: I69.354 Hemiplegia and hemiparesis following cerebral infarction affecting left non-dominant side (principal); R41.89 Other symptoms and signs involving cognitive functions and awareness; R53.1 Weakness
CPT/HCPCS: 92507; 97110; 97112; 97129; 97130; 97530; 97535

== ENCOUNTER 2019-08-08 09:00 | Outpatient (RCR) | payer MEDICARE, SELFPAY ==
--- NOTE | 2019-07-15 08:14 | PCPTNOTE ---
The treatment documented on this account is a continuation of the treatment documented on visit number [id number]. Please see documentation on both accounts to view progress. The Plan of Care has been transitioned and updated within the new V#. I have addressed and agree with the discipline specific Problems, Interventions, and Goals for the current certification period. Completed interventions, outcomes, and problems have been marked as Inactive to facilitate the copying of the Care plan routine for recurring accounts.
--- NOTE | 2019-07-16 15:18 | PCPTNOTE ---
The treatment documented on this account is a continuation of the treatment documented on visit number [id number]. Please see documentation on both accounts to view progress. The Plan of Care has been transitioned and updated within the new V#. I have addressed and agree with the discipline specific Problems, Interventions, and Goals for the current certification period. Completed interventions, outcomes, and problems have been marked as Inactive to facilitate the copying of the Care plan routine for recurring accounts.
--- NOTE | 2019-08-08 10:35 | PTOPEVAL ---
PHYSICAL THERAPY DISCHARGE REPORT Thank you for referring Ashly Larry to [facility]. Vee demonstrates all tests today within norms of decreased risk for falls. She is independent with HEP with her caregiver. Please review, sign, date and return this plan of care KIERSTEN. I agree with and certify that the following plan of care is medically necessary. Referring Physician Date Discharge Outpatient Past Medical History Neurological History Hx Cerebrovascular Accident (CVA) Yes Diagnosis s/p CVA Onset 11/21/18 Subjective Information Vee reports she continues to Query Text:As Reported By Patient/ exercise at least an hour a Family day. She is walking in her home without her walker most of the time. Uses her walker when she is outside of the home. Daughter asked if there was anything else to do about her dragging her foot - I explained that there are abnormal tonal influences that affecting Vee's ability to move the leg as successfully as she would want and that she has her exercises and techniques to overcome the tone. I also reminded Vee and family that walking faster will increase the tone and she should slow her pace if she wants to reduce tone. Pain Assessment Timing of Pain Assessment Timing of Pain Assessment Assessment Self Report Self Report Pain Level 0 Pain Score Pain Score 0: Self Report Additional Pain Score Comments took two tylenol this morning for left hip pain ROGERS Balance Evaluation Total Score 48/56 Comments 07/10/2019: 40/56 Time Up Go (TUG): 17seconds Assistive Devices Walker, Wheeled Comments 07/10/2019: 18seconds; 05/22/2019: 18seconds, 04/23/2019: 24.47 with walker 5 Time Sit to Stand: 13.19seconds Comments (07/10/2019:13.79; 05/22/2019: 13.46seconds with hands touching legs, 04/23/2019: 14.22) Gait Assessment Ambulation Assistive Devices None Weight Bearing Status - Left Full Weight Bearing Status - Right Full Ambulation Distance 100ft Query Text:(Feet) Ambulation Destination Outside Ambulation Ability Minimum Assistance X 1 Additional Ambulation Comments 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
== END 2019-08-08 11:30 | disposition home or self-care (01) ==
LOC: ANHPT 09:00
DX: I69.354 Hemiplegia and hemiparesis following cerebral infarction affecting left non-dominant side (principal)
CPT/HCPCS: 97110

== ENCOUNTER 2020-05-18 11:43 | Inpatient (IN) | payer MEDICARE, SELFPAY ==
[2020-05-18] VITALS (40 sets, daily range): BP systolic 75–152; BP diastolic 6–104; PULSE 78–151; RESP 14–44; TEMP 36.9–37.4; O2SAT 89–99; BMI 28.8
--- NOTE | ~2020-05-18 | US_ITS ---
EXAMINATION: US venous doppler UE DATE: 05/22/2020 11:09 INDICATION: Upper limb swelling. TECHNIQUE: Grayscale ultrasound images without and with compression and Doppler ultrasound images of the bilateral upper extremity veins were obtained. COMPARISON: None. FINDINGS: The visualized portions of the right internal jugular vein, subclavian vein, axillary vein, brachial veins, basilic vein, cephalic vein, radial vein, and ulnar vein are patent. The visualized portions of the left internal jugular vein, subclavian vein, axillary vein, brachial v eins, basilic vein, cephalic vein, radial vein, and ulnar vein are patent. IMPRESSION: 1. No deep venous thrombosis. Reviewed, dictated and finalized at location A. PRESSING MACHINE OPERATOR
--- NOTE | ~2020-05-18 | CT_ITS ---
EXAMINATION: CT abdomen pelvis wo con EXAM DATE: 05/25/2020 14:52 INDICATION: Cholecystitis, recent abnormal cholangiogram. TECHNIQUE: Spiral CT of the abdomen and pelvis was performed without contrast. Axial, coronal and sag ittal images were reviewed. The dose-length product (DLP) for this examination was 726.50 mGy-cm. T he exposure was tailored according to patient size (auto mA exposure control), and iterative reconstr uction (ASIR) was used as additional dose reduction technique. Correlation is made to cholecystostomy tube injection 05/18/2020. FINDINGS: There is a cholecystostomy tube which has been placed compared to previous CT. The gallblad yariel is now decompressed with multiple gallstones present. Gallbladder neck extravasation was identifi ed on prior cholecystostomy tube injection, however no contained subhepatic abscess is identified on this study, and there is no free intraperitoneal fluid. There is moderate amount of pericholecystic i nflammation with mild improvement. There is no nephrolithiasis or hydronephrosis. The uterus is unremarkable. Small amount of gas i n the bladder probably introduced through Ortiz. The liver, spleen, adrenal glands and pancreas are unremarkable. There is no retroperitoneal or pelvic lymphadenopathy. There is mild scattered arter iosclerotic disease. There are no findings to suggest appendicitis. There is moderate descending and sigmoid colonic diver ticulosis. There is no adjacent inflammatory change to suggest diverticulitis. The stomach and small bowel are unremarkable. There is expected amount of colonic stool. No free intraperitoneal gas. There is cardiomegaly and cardiac pacemaker/AICD device. Left basilar subsegmental atelectasis. Mod erate chronic compression fracture at T11. There are no osteoblastic or osteolytic lesions identifie d. IMPRESSION: 1. Cholelithiasis, decompressed gallbladder with percutaneous cholecystostomy tube in position. Impr oving pericholecystic inflammation. No organized abscess identified on this noncontrast study. 2. Moderate colonic diverticulosis. 3. Left basilar subsegmental atelectasis. Reviewed, dictated and finalized at location A. IMPRESSION: 1. Cholelithiasis, decompressed gallbladder with percutaneous cholecystostomy tube in position. Improving pericholecystic inflammation. No organized abscess identified on this noncontrast study. 2. Moderate colonic diverticulosis. 3. Left basilar subsegmental atelectasis.
--- NOTE | ~2020-05-18 | XR_ITS ---
EXAMINATION: XR chest 1V portable DATE: 05/20/2020 13:16 INDICATION: Shortness of breath. TECHNIQUE: A single frontal view of the chest was obtained. COMPARISON: Chest single view 05/18/2020 FINDINGS: There are airspace opacities at left lung base. No pleural effusion or pneumothorax. The he art size is normal. There is a prominent left paracardial fat pad. There is a left chest wall pacer w ith leads in the right atrium and right ventricle. A right internal jugular central venous catheter i s seen with tip at the superior cavoatrial junction. A percutaneous cholecystostomy tube is noted. Th ere are gallstones in the gallbladder. IMPRESSION: 1. Stable airspace opacities at left lung base, consistent with atelectasis versus pneumonia. Reviewed, dictated and finalized at location A. OMER SOLUTIONS COORDINATOR IMPRESSION: 1. Stable airspace opacities at left lung base, consistent with atelectasis gerson rommel pneumonia.
--- NOTE | ~2020-05-18 | XR_ITS ---
EXAMINATION: XR chest 1V INDICATION: Shortness of breath TECHNIQUE: AP view of the chest is obtained. COMPARISON: None available FINDINGS: There is mild atelectasis of the lung bases. Cardiomegaly is noted. There is no pleural eff usion or pneumothorax. A dual-lead cardiac pacemaker of the left chest wall ends with leads in expect ed locations. IMPRESSION: 1. Mild atelectasis of the lung bases. 2. Cardiomegaly. Reviewed, dictated and finalized at location A. PER HAND
--- NOTE | ~2020-05-18 | CT_ITS ---
EXAMINATION: CT chest abdomen pelvis wo con DATE: 05/18/2020 13:14 INDICATION: Shortness of breath, nausea and diarrhea TECHNIQUE: Transaxial computed tomographic images of the chest, abdomen, and pelvis were obtained wit hout intravenous contrast. The dose-length product (DLP) was 967.60 mGy-cm. Automated exposure contro l and iterative reconstruction technique were employed. COMPARISON: None FINDINGS: CHEST CT: Evaluation of the lung parenchyma is slightly limited by motion artifact. There is a 6 mm nodule in t he right middle lobe. Dependent atelectasis is noted. There is cardiomegaly. There is a trace right p leural effusion. No pneumothorax is identified. There are no pathologically enlarged thoracic lymph n odes. A dual-lead pacemaker of the left chest wall ends with its leads in the right atrium and right ventricle. There is an age-indeterminate compression fracture of T11. ABDOMEN/PELVIS CT: Stones are present in the distended gallbladder. There is gallbladder wall thickening and fat strandi ng surrounding the gallbladder. The liver, pancreas, and adrenal glands are normal. Punctate calcific ations in an otherwise normal spleen likely represent healed granulomatous disease. The kidneys are u nremarkable. No pathologically enlarged abdominal or pelvic lymph nodes are identified. There is no f ree intraperitoneal gas or evidence of bowel obstruction. Colonic diverticulosis is present without e vidence of diverticulitis. There is severe lumbar spondylosis. IMPRESSION: 1. Findings consistent with acute cholecystitis. 2. Indeterminate 6 mm nodule of the right middle lobe. Recommend follow-up CT in 6-12 months. Reviewed, dictated and finalized at location A. OSITE WORKER IMPRESSION: 1. Findings consistent with acute cholecystitis. 2. Indeterminate 6 mm nodule of the right middle lobe. Recommend follow-up CT i n 6-12 months.
--- NOTE | ~2020-05-18 | US_ITS ---
EXAMINATION: US renal BI EXAM DATE: 05/19/2020 14:29 INDICATION: Acute kidney insufficiency. TECHNIQUE: Multiple grayscale and Doppler images of the kidneys were obtained (by a technologist who performed the scan) and subsequently reviewed. Correlation is made to CT chest abdomen pelvis from 05/18/2020. FINDINGS: Right kidney: There is normal contour and echogenicity. It measures 8.4 x 4.0 x 4.7 centimeters. Th ere are no focal renal lesions identified. There is no hydronephrosis. Left kidney: There is normal contour and echogenicity. It measures 8.6 x 4.8 x 4.4 centimeters. The re are no focal renal lesions identified. There is no hydronephrosis. Bladder unremarkable. IMPRESSION: Sonographically unremarkable kidneys. Reviewed, dictated and finalized at location B. H STRAIGHTENER
--- NOTE | ~2020-05-18 | XR_ITS ---
EXAMINATION: XR catheter cholangiogram DATE: 05/22/2020 12:32 INDICATION: Acute cholecystitis. TECHNIQUE: I injected the cholecystostomy tube with Omnipaque 240 during fluoroscopy. 6 images were o btained. Fluoroscopy exposure time was 0.3 minutes. COMPARISON: CT abdomen and pelvis 05/18/2020 FINDINGS: The cholecystostomy tube is in expected position in the gallbladder. There are multiple gal lstones in the gallbladder. There is stenosis of the cystic duct with eventual passage of a small vol ume of contrast to the common duct. There is extraluminal contrast adjacent to the neck of the gallbl adder. IMPRESSION: 1. Stenosis of the cystic duct with eventual passage of a small volume of contrast to the common duct . 2. Perforation of the neck of the gallbladder. 3. Cholelithiasis. 4. Cholecystotomy tube in expected position. Reviewed, dictated and finalized at location A. OL CURRICULUM DEVELOPER IMPRESSION: 1. Stenosis of the cystic duct with eventual passage of a small volume of contr ast to the common duct. 2. Perforation of the neck of the gallbladder. 3. Cholelithiasis. 4. Cholecystotomy tube in expected position.
--- NOTE | ~2020-05-18 | US_ITS ---
EXAMINATION: US perc cholecystostomy w imag DATE: 05/19/2020 14:27 INDICATION: Acute cholecystitis with sepsis. TECHNIQUE: The procedure including the risks, benefits, and alternatives was discussed with the patie nt. Risks discussed included bleeding including bleeding and infection. The skin overlying the liver and gallbladder was prepped and draped in usual sterile fashion. Anesthetic was administered with 1% lidocaine subcutaneously. An 8.5 Fr catheter was inserted through liver parenchyma into the gallbla dder by trocar technique. The metal stiffener and trocar needle were removed, and the pigtail tip was locked. Bile was aspirated and sent for culture. The catheter was stitched to the skin with suture. There were no immediate complications. FINDINGS: Ultrasound images demonstrate the catheter within the gallbladder. 5 mL bile was aspirated. IMPRESSION: 1. Successful ultrasound-guided cholecystostomy tube placement. 2. 7 mL brown bile was sent for aerobic and anaerobic cultures. 3. The catheter will be managed by Dr. Holder. A catheter cholangiogram may be performed not less th an 48 hours after tube placement if clinically indicated to assess cystic duct patency. If cholecyste ctomy is not eventually performed and the infectious episode has resolved, the tube may be removed ov er a guidewire, preferably not less than 3 weeks after placement to allow time for a mature catheter tract to form to prevent bile leakage and peritonitis. Reviewed, dictated and finalized at location A. CTOR OF SAFETY IMPRESSION: 1. Successful ultrasound-guided cholecystostomy tube placement. 2. 7 mL brown bile was sent for aerobic and anaerobic cultures. 3. The catheter will be managed by Dr. Holder. A catheter cholangiogram may be performed not less than 48 hours after tube placement if clinically indicated to assess cystic duct patency. If cholecystectomy is not eventually performed a nd the infectious episode has resolved, the tube may be removed over a guidewir e, preferably not less than 3 weeks after placement to allow time for a mature catheter tract to form to prevent bile leakage and peritonitis.
--- NOTE | ~2020-05-18 | XR_ITS ---
EXAMINATION: XR chest port-a-cath/central DATE: 05/18/2020 16:49 INDICATION: Central line placement. TECHNIQUE: A single frontal view of the chest was obtained. COMPARISON: Chest single view at 1:14 PM, chest CT 05/18/2020 FINDINGS: The patient is rotated to her left. There is mild atelectasis in right mid and lower lung z ones. There are airspace opacities at left lung base. A prominent paracardial fat pad blunts left lat eral costophrenic angle. No definite pleural effusion. No pneumothorax. The heart size is normal. The re is a left chest wall pacer with leads in the right atrium and right ventricle. A right internal ju gular central venous catheter is seen with tip at the superior cavoatrial junction. IMPRESSION: 1. Central line tip at superior cavoatrial junction. 2. Worsened airspace opacities at left lung base, consistent with atelectasis versus pneumonia. Reviewed, dictated and finalized at location A. ICENOW ADMINISTRATOR IMPRESSION: 1. Central line tip at superior cavoatrial junction. 2. Worsened airspace opacities at left lung base, consistent with atelectasis v ersus pneumonia.
--- NOTE | 2020-05-18 12:03 | PC.NURSE ---
pt placed on nasal cannula 4 pm per resp therapy and ed phys
--- NOTE | 2020-05-18 12:11 | ECG_ITS ---
Measurements Intervals Girard Rate: 135 P: AR: 0 QRS: -16 QRSD: 83 T: 26 QT: 317 QTc: 476 Interpretive Statements ATRIAL FLUTTER/TACHYCARDIA WITH RAPID VENTRICULAR RESPONSE RSR' IN V1 OR V2, CONSIDER RIGHT VENTRICULAR HYPERTROPHY OR RIGHT VCD BASELINE ARTIFACT- I, II, III, AVR, AVL, AVF, V1-V6 ABNORMAL ECG Electronically Signed On 05-18-2020 13:54:43 TRANSPORTATION DESIGN ENGINEER by Wilbert Tristan D.O.
[2020-05-18] MEDS: ONDANSETRON INJ 4 MG/2 ML VIAL (12:29)
[2020-05-18] MEDS: IPRATROPIUM BR 0.02% INH SOLN 0.5 MG/2.5 ML VIAL INHALATION (12:44)
[2020-05-18] MEDS: ALBUTEROL SULFATE NEB 2.5 MG/0.5 ML INH 5 MG INHALATION (12:44)
--- NOTE | 2020-05-18 12:45 | ED.NAVMDI ---
HPI - Nausea/Vomiting/Diarrhea General Chief complaint: Shortness of Breath/Dyspnea Stated complaint: SOB Time Seen by Provider: 05/18/20 12:10 Source: patient Mode of arrival: ambulatory Limitations: no limitations History of Present Illness HPI Narrative: Patient is an 85-year-old female brought in due to nausea, vomiting, diarrhea x3 days. Daughter states that her vomitus is nonbilious nonbloody, diarrhea is loose watery nonbloody. Daughter states that she had a fever yesterday but none today. This morning patient started to complain of shortness of breath He called EMS. Daughter also states that she has not urinated x24 hours, I think she is very dehydrated . Patient denies any chest pain, abdominal pain or urinary symptoms. Related Data Home Medications Medication Instructions Recorded Confirmed amiodarone 100 mg PO DAILY 05/18/20 05/18/20 apixaban [Eliquis] 2.5 mg BID 05/18/20 05/18/20 atorvastatin 40 mg PO HS 05/18/20 05/18/20 fluticasone propionate 2 spray INTRANASAL DAILY 05/18/20 05/18/20 lisinopril 20 mg PO DAILY 05/18/20 05/18/20 Allergies Allergy/AdvReac Type Severity Reaction Status Date / Time Penicillins Allergy Mild Itching Verified 05/18/20 12:06 Sulfa (Sulfonamide Allergy Hives Verified 05/18/20 12:06 Antibiotics) tramadol AdvReac Nausea and Verified 05/18/20 14:06 Vomiting Review of Systems Review of Systems: All systems reviewed & are unremarkable except as noted in HPI and below Constitutional: Constitutional: Denies body ache(s), Denies chills, Denies excessive sweating, Denies fatigue, Denies headache(s), Denies lethargy and Denies weight loss Eyes: Eyes: Denies blurry vision, Denies change in vision and Denies loss of vision ENT: Denies dizziness, Denies ear discharge, Denies headache(s), Denies lip swelling, Denies epistaxis, Denies nasal congestion, Denies neck pain, Denies throat swelling and Denies tongue swelling Cardiovascular: Cardiovascular: Denies chest pain, Denies chest pain at rest, Denies chest pain with activity, Denies diaphoresis, Denies rapid heart rate, Denies edema, Denies irregular heart rhythm, Denies lightheadedness and Denies palpitations Respiratory: Respiratory: Denies chest congestion, Denies cough and Denies hemoptysis Gastrointestinal: Gastrointestinal: Denies abdominal pain, Denies melena, Denies hematochezia and Denies hematemesis Musculoskeletal: Musculoskeletal: Denies abnormal gait, Denies deformity, Denies joint swelling, Denies limited range of motion, Denies neck pain and Denies numbness Neurologic: Denies Abnormal speech present, Denies abnormal gait, Denies confusion, Denies dizziness, Denies headache(s), Denies focal weakness, Denies loss of vision, Denies numbness, Denies Other visual disturbances, Denies Sensory deficit (Neuro) and Denies weakness Psychiatric: Psychiatric: Denies confusion, Denies depression, Denies auditory hallucinations, Denies homicidal ideation and Denies suicidal ideation Endocrine: Endocrine: Denies cold intolerance, Denies excessive sweating, Denies fatigue, Denies heat intolerance and Denies palpitations Hematologic/Lymphatic: Hematologic/Lymphatic: Denies easy bleeding and Denies easy bruising Allergic/Immunologic: Allergic/Immunologic: Denies lip swelling, Denies throat swelling and Denies tongue swelling [facility] Past Medical History Medical History (Updated 05/18/20 @ 15:16 by Arcenio Holder MD) Atrial fibrillation with rapid ventricular response (Unknown) Social History Social History Gender identity (if verbalized by the patient): Female Comments Past medical history: Hypertension, hyperlipidemia, atrial fib, CVA Family history: Noncontributory Social history non-smoker, no EtOH use, lives at home Exam Const: General: No confusion Orientation/consciousness: oriented to person and oriented to place Limitations: no limitations Other: Frail, moderate distress, ill-appearing HENMT: Head: norm
[2020-05-18 12:50] LABS: Alveolar/Arterial O2 Gradient 160.2 mmHg; Base Excess ABG -5.8 mEq/l (+/-2.0); Fractional Inspired Oxygen 36 %; HCO3 ABG 15.2 mEq/l (22.0-26.0); Oxygen Content ABG 18.7 %vol (16.0-22.0); PO2 ABG 72.5 mmHg (80.0-100.0); PO2 FiO2 Ratio Arterial Blood 2.01 %; Total Hemoglobin 14.1 g/dL (12.0-18.0); pH ABG 7.485 (7.350-7.450)
[2020-05-18 12:51] LABS: Basophils Percent Auto 0.4 % (0.2-1.2); Hematocrit 43.5 % (37.0-47.0); Hemoglobin 14.4 g/dL (12.0-15.0); Immature Granulocyte Absolute 0.02 K/mm3 (0.00-0.031); Immature Granulocyte Percent A 0.9 % (0-0.5); Lymphocytes Absolute Auto 0.29 K/mm3 (0.9-3.2); Lymphocytes Percent Auto 12.8 % (18.3-44.2); Mean Corpuscular HGB Conc 33.1 g/dl (32-36); Mean Corpuscular Hemoglobin 32.4 pg (26-34); Mean Platelet Volume 10.6 fl (7.4-10.4); Monocytes Percent Auto 0.9 % (2.6-8.5); Neutrophils Absolute Auto 1.9 K/mm3 (1.3-6.7); Platelet Count Result 176 k/mm3 (150-375); Red Blood Count 4.44 M/mm3 (4.2-5.4); Red Cell Distribution Width 13.6 % (11.5-14.5); White Blood Count 2.3 K/mm3 (4.5-10.0)
[2020-05-18 12:53] LABS: Device NASAL CANNULA; PCO2 ABG 20.7 mmHg (35.0-45.0); Site Drawn LEFT BRACHIAL
[2020-05-18 13:09] LABS: Albumin Level 3.7 g/dL (3.5-5.1); Alkaline Phosphatase 185 U/L (38-126); Anion Gap 15 mmol/L (8-16); Aspartate Amino Transferase 42 U/L (14-36); Bilirubin,Total 2.6 mg/dL (0.2-1.3); Blood Urea Nitrogen 44 mg/dL (7-17); Calcium 8.9 mg/dL (8.4-10.2); Carbon Dioxide 18 mmol/L (22-30); Chloride 102 mmol/L (98-107); Estimated CRCL calculation 13 ml/min; Estimated Glomerular Filt Rate 18; Glucose 131 mg/dL (65-105); Potassium 3.6 mmol/L (3.4-5.0); Sodium 135 mmol/L (137-145)
[2020-05-18 13:12] LABS: INR 1.8; Prothrombin Time 21.4 Seconds (11.1-14.7)
[2020-05-18 13:14] LABS: Alanine Aminotransferase 22 U/L (4-35); Partial Thromboplastin Time 27.6 SECONDS (22.3-36.8)
[2020-05-18 13:21] LABS: NT Pro B Type Natriuretic Pept 1950 PG/ML (5-100); Troponin I 0.044 ng/mL (0.000-0.034)
[2020-05-18 13:22] LABS: Add Urine Microscopic? YES; Appearance Urine Cloudy (Clear); Bacteria Urine Trace /hpf; Bilirubin Urine 1+ (Negative); Blood Urine 1+ (Negative); Color Urine Amber (Yellow); Glucose Urine UA Negative (Negative); Hyaline Casts Urine 30-49 /lpf; Ketones Urine Negative (Negative); Leukocyte Esterase Ur Negative LEU/UL (Negative); Mucus Urine Few /lpf; Nitrate Urine Negative (Negative); Protein Urine 2+ mg/dL (Negative); Specific Grav Ur 1.026 (1.001-1.035); Squamous Epithelial Cell Urine Few /hpf (Few)
[2020-05-18 13:24] LABS: Lactic Acid Reflex 5.4 mmol/L (0.7-2.1)
[2020-05-18 13:39] LABS: D Dimer 10.52 ug/mL (<0.48)
[2020-05-18] MEDS: LACTATED RINGERS 1,000 ML 999 ML IV CONT (14:35)
--- NOTE | 2020-05-18 15:09 | PM.CNGS ---
Assessment and Plan Assessment and plan (1) Acute cholecystitis: Onset Date: ~05/15/20 Code(s): K81.0 - Acute cholecystitis Status: Acute Assessment and Plan: This time the patient is not in good shape to consider operative intervention. She does need quick resolution of this but however. Therefore have discussed with the invasive radiologist about possible percutaneous cholecystostomy by ultrasound guidance. Dr. Roland believes this is possible. She will be 48 hours after off anticoagulation tonight will plan this for early tomorrow morning to allow of ICU to get her better stabilized. (2) Acute renal failure: Qualifiers: Acute renal failure type: unspecified Qualified Code(s): N17.9 - Acute kidney failure, unspecified Code(s): N17.9 - Acute kidney failure, unspecified Status: Acute Assessment and Plan: This will be followed closely by the furniture reproducer and IV rehydration is in progress. (3) Septic shock: Onset Date: ~05/18/20 Code(s): A41.9 - Sepsis, unspecified organism; R65.21 - Severe sepsis with septic shock Status: Acute Assessment and Plan: Lactic acid and what WBCs elevated. Patient was also tachycardic and hypotensive. (4) Atrial fibrillation with rapid ventricular response: Onset Date: Unknown Code(s): I48.91 - Unspecified atrial fibrillation Status: Acute Assessment and Plan: Discovered several years ago. Patient had a stroke before she on anticoagulation affecting her left side. Has been on Eliquis. However, she has not taken Eliquis since Sunday night now 36 hours ago. (5) Current use of long-term anticoagulation: Code(s): Z79.01 - prison (current) use of anticoagulants Status: Acute Assessment and Plan: Patient has been on Eliquis but last time she took it was Sunday night. Therefore, later this evening she will be 48 hours after her last dose and it should be pretty much wore off. (6) History of CVA with residual deficit: Code(s): I69.30 - Unspecified sequelae of cerebral infarction Status: Acute History of Present Illness Consult details Consult date: 05/19/20 Reason for consult: other (Apparent sepsis) Requesting physician: Nico Mead MD Narrative: This is an 85-year-old White female with history of stroke, paroxysmal atrial fibrillation, hyperlipidemia, and hypertension who presented to the emergency department earlier today via EMS from home with complaints of generalized weakness and shortness of breath. She has not felt well since Sunday of this week with vague symptoms including generalized malaise and weakness, nausea, and non bilious emesis as well as some loose stools. Yesterday she just sat in the recliner most of the day as she was unable to get up and had less nausea. She had a subjective fever last night with profuse sweating. Family members thought that she was probably dehydrated and noted that she did not urinate at all yesterday. Because of this they felt it would be best for her to come in to the ED for evaluation. At some point in time today they did get her up to the bedside commode and she began to breathe heavily and appeared short of breath. Therefore, 911 was called. Her SpO2 was 84% on room air on EMS arrival and she has been persistently hypotensive in the emergency department despite aggressive IV fluid rehydration. On further W/U in the [place] ED she was found to have evidence of acute cholecystitis on CT, an elevated LA, and hypotension felt to be associated with sepsis so is being admitted with a working diagnosis of septic shock secondary to such. At the time my evaluation she was still nauseated but is feeling somewhat better with IV fluids and antiemetics. She still had some upper abdominal pain. I did see her in the emergency room before she went to ICU. Review of Systems Constitutional: Constitutional: Reports as per HPI
[2020-05-18] MEDS: NOREPINEPHRINE 8 MG/D5W 250 ML 8 MG/250 ML BAG 13.13 MG IV CONT (16:01)
[2020-05-18 16:04] LABS: Reflex Lactic Acid Yes or No Add Lactic
[2020-05-18] MEDS: HYDROmorphone HCL INJ (*CRX) 1 MG/ML SYR 0.5 MG IV PUSH (17:14)
[2020-05-18] MEDS: LACTATED RINGERS 1,000 ML 125 ML IV CONT (17:20)
--- NOTE | 2020-05-18 18:00 | PM.IMHP ---
H&P: HPI History of Present Illness Date/Time: 05/18/20 18:00 Chief Complaint: Generalized weakness and shortness of breath. Narrative: This is an 85-year-old female with history of stroke, paroxysmal atrial fibrillation, hyperlipidemia, and hypertension who presented to the emergency department earlier today via EMS from home with complaints of generalized weakness and shortness of breath. She has not felt well since Sunday with vague symptoms including generalized malaise and weakness, nausea, and non bilious emesis as well as some loose stools. Yesterday she just sat in the recliner most of the day as she was unable to get up. She had a subjective fever last night with profuse sweating. Family members thought that she was probably dehydrated she did not urinate at all yesterday and felt it would be best for her to come in today for evaluation. At some point in time they did get her up to the bedside commode and she began to breathe heavily and appeared short of breath thus 911 was called. Her SpO2 was 84% on room air on EMS arrival and she has been persistently hypotensive in the emergency department despite aggressive IV fluid rehydration. She was found to have evidence of acute cholecystitis on CT is being admitted with a working diagnosis of septic shock secondary to such. At the time my evaluation she is still nauseated but is feeling somewhat better with IV fluids and antiemetics. She did not think that she was having abdominal pain however is tender to percussion and palpation throughout the upper abdomen. Review of Systems Review of Systems: Narrative: Twelve systems were reviewed with pertinent positives and negatives as per HPI. She denies sinus congestion, rhinorrhea, otalgia, and odynophagia. No cough. No known exposure to those positive for COVID-19. She denies dysuria. No chest pain or pleuritic pain. Except as documented, all other systems were reviewed and are negative. [facility] Past Medical History Medical History (Updated 05/18/20 @ 21:29 by Winter Motley PA-C) Arthritis Atrial fibrillation with rapid ventricular response (Unknown) Cerebrovascular accident (~2018) Residual left-sided weakness. COVID-19 (~12/2019) Current use of detention anticoagulation Hyperlipidemia Hypertension Paroxysmal atrial fibrillation Surgical History Surgical History (Updated 05/18/20 @ 21:24 by Winter Motley PA-C) History of appendectomy History of bilateral cataract extraction History of tubal ligation Family History Family History Mother Alzheimer's dementia Father Lung cancer Social History Social History (Updated 05/18/20 @ 21:25 by Winter Motley PA-C) Social History: The patient lives in [place]. 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 No alcohol, tobacco, or illicit substance use. Her daughter Viridiana farley is her healthcare power of energy attorney. At this time she wishes to be a full code however would not want to be on long-term life support. Spiritual care concerns: Yes Meds Home Medications and Allergies Home Medications Medication Instructions Recorded Confirmed Type amiodarone 100 mg PO DAILY 05/18/20 05/18/20 History apixaban [Eliquis] 2.5 mg BID 05/18/20 05/18/20 History atorvastatin 40 mg PO HS 05/18/20 05/18/20 History fluticasone propionate 2 spray INTRANASAL DAILY 05/18/20 05/18/20 History lisinopril 20 mg PO DAILY 05/18/20 05/18/20 History Allergies Allergy/AdvReac Type Severity Reaction Status Date / Time Penicillins Allergy Mild Itching Verified 05/18/20 12:06 Sulfa (Sulfonamide Allergy Hives Verified 05/18/20 12:06 Antibiotics) tramadol AdvReac Nausea and Verified 05/18/20 14:06 Vomiting Vital Signs Vital Signs - 24 hr 05/18/20 11:47 05/18/20 12:03 05/18/20 12:07 Temperature Pulse Rate 146 H 145 H Respiratory Rate 36 H Blood Pressure 152/104 H Pulse Oximetry 89 L 89 L
--- NOTE | 2020-05-18 18:28 | ADMGEN ---
This patient, Ashly Larry, was admitted to Intensive Care Unit-1 at 1820. Patient/family oriented to hospital policies and general routines including ID bracelet, bed and alarms, visiting hours, pain management, procedures, bathroom and other care routines, personal items, smoking policy, room service/diet, and visiting hours. Information on how to activate the Rapid Response Team has been discussed. Patient/Family are encouraged to report perceived risks to care and to ask questions if they do not understand what they are told or what they should do.
--- NOTE | 2020-05-18 18:35 | PC.NURSE ---
unable to waste 0.5 mg dilaudid in pyxis. waste witnessed by marylin lyons rn at 1835
[2020-05-18 22:55] LABS: Mean Platelet Volume 10.5 fl (7.4-10.4); Platelet Count Result 169 k/mm3 (150-375)
[2020-05-18 23:08] LABS: Alanine Aminotransferase 19 U/L (4-35); Albumin Level 2.7 g/dL (3.5-5.1); Alkaline Phosphatase 62 U/L (38-126); Anion Gap 7 mmol/L (8-16); Aspartate Amino Transferase 36 U/L (14-36); Blood Urea Nitrogen 46 mg/dL (7-17); Carbon Dioxide 26 mmol/L (22-30); Chloride 101 mmol/L (98-107); Creatine Kinase 252 U/L (30-135); Estimated CRCL calculation 12 ml/min; Estimated Glomerular Filt Rate 17; Glucose 159 mg/dL (65-105); Magnesium 1.2 mg/dL (1.6-2.3); Potassium 3.2 mmol/L (3.4-5.0); Sodium 134 mmol/L (137-145)
[2020-05-18 23:13] LABS: INR 1.8; Partial Thromboplastin Time 38.7 SECONDS (22.3-36.8); Prothrombin Time 21.2 Seconds (11.1-14.7)
[2020-05-18 23:24] LABS: Troponin I 0.153 ng/mL (0.000-0.034)
[2020-05-18 23:33] LABS: Fibrinogen 384 mg/dl (215-510)
[2020-05-19] VITALS (23 sets, daily range): BP systolic 96–155; BP diastolic 56–89; PULSE 70–85; RESP 14–22; TEMP 36.7–37.3; O2SAT 92–99
[2020-05-19] MEDS: LACTATED RINGERS 1,000 ML 125 ML IV CONT (02:29)
[2020-05-19 05:42] LABS: Hematocrit 30.9 % (37.0-47.0); Hemoglobin 10.2 g/dL (12.0-15.0); Mean Corpuscular Hemoglobin 32.5 pg (26-34); Mean Corpuscular Volume 98.4 fl (80-100); Mean Platelet Volume 11.2 fl (7.4-10.4); Platelet Count Result 157 k/mm3 (150-375); Red Blood Count 3.14 M/mm3 (4.2-5.4); Red Cell Distribution Width 13.9 % (11.5-14.5); White Blood Count 30.6 K/mm3 (4.5-10.0)
[2020-05-19 05:49] LABS: INR 1.7; Prothrombin Time 20.8 Seconds (11.1-14.7)
[2020-05-19 05:50] LABS: Partial Thromboplastin Time 40.4 SECONDS (22.3-36.8)
[2020-05-19 05:54] LABS: Alanine Aminotransferase 20 U/L (4-35); Albumin Level 2.7 g/dL (3.5-5.1); Alkaline Phosphatase 61 U/L (38-126); Anion Gap 7 mmol/L (8-16); Aspartate Amino Transferase 38 U/L (14-36); Bilirubin,Total 1.8 mg/dL (0.2-1.3); Blood Urea Nitrogen 49 mg/dL (7-17); Calcium 7.9 mg/dL (8.4-10.2); Carbon Dioxide 26 mmol/L (22-30); Chloride 100 mmol/L (98-107); Estimated CRCL calculation 12 ml/min; Estimated Glomerular Filt Rate 17; Glucose 126 mg/dL (65-105); Magnesium 1.3 mg/dL (1.6-2.3); Potassium 3.7 mmol/L (3.4-5.0); Sodium 133 mmol/L (137-145)
[2020-05-19 06:01] LABS: Prealbumin 8.1 mg/dL (17.6-36.0)
[2020-05-19 06:32] LABS: Band Neutrophils Percent 12 % (0-6); Lymphocytes Absolute Manual 1.22 K/mm3 (1.1-4.5); Monocytes Percent Manual 1 % (3-9); Neutrophils Absolute Manual 29.07 K/mm3 (1.7-7.2); Neutrophils Percent Manual 83 % (46-73); Platelet Estimate Adequate (Adequate); Total Cells Counted 100
[2020-05-19 06:33] LABS: Ovalocytes 1+ (NORMAL)
[2020-05-19] MEDS: MAGNESIUM SULF 2 GM/WATER 50ML 2 GM/50 ML BAG IVPB (07:24)
[2020-05-19 07:38] LABS: Lactic Acid Reflex 1.9 mmol/L (0.7-2.1)
--- NOTE | 2020-05-19 07:45 | WPDCNINT ---
Assessment and Plan Assessment and plan (1) Septic shock: Onset Date: ~05/18/20 Code(s): A41.9 - Sepsis, unspecified organism; R65.21 - Severe sepsis with septic shock Status: Acute Assessment and Plan: Patient presented with hypotension, if agitated to adequate fluid resuscitation per sepsis guidelines -central line was inserted in the ER and started on Levophed -patient currently off Levophed and maintaining MAPs > 65 mmHg -continue imipenem -likely source acute cholecystitis as seen on CT on the chest abdomen and pelvis -lactic acidosis has resolved -patient with acute kidney injury, monitor urine output and renal function -blood cultures growing Gram-negative bacilli 2/2 bottles, await identification and sensitivities (2) Acute cholecystitis: Onset Date: ~05/15/20 Code(s): K81.0 - Acute cholecystitis Status: Acute Assessment and Plan: Acute cholecystitis as seen on the CT scan of the abdomen pelvis, - Appreciate surgery evaluation and recommendation -patient for percutaneous cholecystostomy by IR today on 05/19/2020 -continue antibiotics as above (3) Acute renal failure: Qualifiers: Acute renal failure type: unspecified Qualified Code(s): N17.9 - Acute kidney failure, unspecified Code(s): N17.9 - Acute kidney failure, unspecified Status: Acute Assessment and Plan: Acute kidney injury could be related to hypotension, septic shock, acute cholecystitis, LIZZY-inhibitor the patient uses at home -patient has been adequately fluid-resuscitated per sepsis guidelines -Ortiz catheter in place, monitor urine output closely -monitor renal function electrolytes (4) Paroxysmal atrial fibrillation: Code(s): I48.0 - Paroxysmal atrial fibrillation Status: Acute Assessment and Plan: Patient with history of paroxysmal AFib, on amiodarone and apixaban at home, both medications on hold -patient remains in in and out of AFib but rate controlled, -continue to monitor (5) Right middle lobe pulmonary nodule: Code(s): R91.1 - Solitary pulmonary nodule Status: Acute Assessment and Plan: Nodule as seen on CT scan, follow-up CT in 6-12 months has been recommended (6) DVT prophylaxis: Code(s): Z29.9 - Encounter for prophylactic measures, unspecified Status: Acute Assessment and Plan: SCDs Additional Plan Discussed with patient updated with her condition and plan of care. I did update her that she has acute gallbladder disease for for which she will be going for an drainage I also updated her that she is on antibiotics, currently off blood pressure support medications Code status: Full code Critical care time spent: 44 minutes This dictation may have been done utilizing a voice recognition system. Attempts have been made to correct errors. However, there may be uncorrected grammatical, spelling, and recognition errors present. Due to a high probability of clinically significant, life threatening deterioration, the patient required my highest level of preparedness to intervene emergently and I personally spent this critical care time directly and personally managing the patient. This critical care time included obtaining a history; examining the patient; pulse oximetry; ordering and review of studies; arranging urgent treatment with development of a management plan; evaluation of patient's response to treatment; frequent reassessment; and discussions with other providers. It was exclusive of separately billable procedures and treating other patients and teaching time. Please see Assessment and Plan section and the rest of the note for further information on patient assessment and treatment Boarding Specialist Consult Note Consult date: 05/19/20 Time Seen: 06:44 Reason for consult: Septic shock, acute cholecystitis, acute kidney injury, generalized weakness, nausea, vomiting, diarrhea HPI: Ashly Larry is a 85 year old femal
--- NOTE | 2020-05-19 09:54 | PM.PNGS ---
Progress Note: A&P Assessment and Plan (1) Acute cholecystitis: Onset Date: ~05/15/20 Code(s): K81.0 - Acute cholecystitis Status: Acute Assessment and Plan: Likely source of sepsis. WBC up to 30,600 today. Plan for US-guided percutaneous cholecystostomy tube placement in Radiology today. OKay to start clear liquids following procedure if patient is feeling well. (2) Septic shock: Onset Date: ~05/18/20 Code(s): A41.9 - Sepsis, unspecified organism; R65.21 - Severe sepsis with septic shock Status: Acute Assessment and Plan: Criteria met on admission. Lactic acid down to 1.9 today. Gallbladder is the likely source. Has received adequate IV fluid resuscitation and hypotension has improved. No longer on vasopressor support. Continue broad-spectrum IV abx. See plan above. Monitor labs. (3) Acute renal failure: Qualifiers: Acute renal failure type: unspecified Qualified Code(s): N17.9 - Acute kidney failure, unspecified Code(s): N17.9 - Acute kidney failure, unspecified Status: Acute Assessment and Plan: Creatinine still 2.7 today. Continue to monitor labs. Management per primary service. (4) Atrial fibrillation with rapid ventricular response: Onset Date: Unknown Code(s): I48.91 - Unspecified atrial fibrillation Status: Acute Assessment and Plan: Currently rate controlled A-fib on my exam. Eliquis on hold for procedure today. Okay from a surgical standpoint to restart anticoagulation this evening. Management per primary service. (5) Current use of half-way anticoagulation: Code(s): Z79.01 - MCFP (current) use of anticoagulants Status: Acute Assessment and Plan: Okay from a surgical standpoint to restart anticoagulation this evening once the primary service feels it is necessary. (6) History of CVA with residual deficit: Code(s): I69.30 - Unspecified sequelae of cerebral infarction Status: Acute Additional Plan I discussed the patient's plan of care with Dr. Holder. Subjective Subjective Date/Time Seen: 05/19/20 09:55 Interval history: Patient seen this am in ICU. No specific complaints. Denies abdominal pain, nausea, vomiting, or bloating. Oriented x 3 but does not recall recent events from yesterday. Review of Systems Review of Systems: All systems reviewed & are unremarkable except as noted in HPI and below Exam Const: General: no acute distress, alert and awake Orientation/consciousness: patient oriented x3 Eyes: Other: no scleral icterus Resp: Effort & Inspection: normal respiratory effort and able to speak in complete sentences Auscultation: clear to auscultation bilaterally Cardio: Rate: regular rate Rhythm: abnormal rhythm irregularly irregular GI: Inspection: non-distended and no visible herniation GI Palp: Yes Soft to palpation, Yes Tenderness to palpation present (GI) (upper abdomen), Yes Guarding due to palpation present (GI) (RUQ) and No Rebound tenderness present Auscultation: Hypoactive bowel sounds present Urinary Catheter: Urinary Catheter: patent and draining and urine dark Skin: General skin exam: normal color Neuro: General: moves all extremities and no focal motor deficits Psych: Mental Status: mental status grossly normal Insight: Fair insight present (Psych) Judgement: Fair judgement present (Psych) Objective Data Vital Signs Vital Signs: Vital Signs - 24 hr 05/18/20 11:47 05/18/20 12:03 05/18/20 12:07 Temperature Pulse Rate 146 H 145 H Respiratory Rate 36 H Blood Pressure 152/104 H Pulse Oximetry 89 L 89 L 05/18/20 12:10 05/18/20 12:17 05/18/20 12:33 Temperature Pulse Rate 130 H 151 H Respiratory Rate 35 H 40 H 30 H Blood Pressure 93/70 L Pulse Oximetry 98 96 96 05/18/20 12:44 05/18/20 12:50 05/18/20 12:54 Temperature Pulse Rate 121 H 138 H 127 H Respiratory Rate 22 H 40 H 22 H Blood
[2020-05-19 11:52] LABS: Creatinine Urine 116.4 mg/dL
[2020-05-19 11:53] LABS: Potassium Urine Random 45.7 meq/L; Sodium Urine Random 23 meq/L
[2020-05-19] MEDS: LACTATED RINGERS 1,000 ML 75 ML IV CONT (13:40)
[2020-05-19 14:02] LABS: Eosinophil Urine None Seen % (None Seen)
--- NOTE | 2020-05-19 16:45 | PM.IMPN ---
Subjective Date/time seen: 05/19/20 16:45 Interval history: 85-year-old female with history of stroke, paroxysmal atrial fibrillation, hyperlipidemia, and hypertension who presented to the emergency department earlier today via EMS from home with complaints of generalized weakness and shortness of breath. Pt is in ICU seen BY ICU MD and surgery team. Pt admitted with cholecystitis, ARF,septic shock and Af Review of Systems Review of Systems: All systems reviewed & are unremarkable except as noted in HPI and below Exam Const: General: tired appearing and other (elderly ); No in distress Nutritional Appearance: overweight Orientation/consciousness: oriented to person HENMT: Head: normal to inspection Resp: Effort & Inspection: no respiratory distress Auscultation: no rhonchi and no wheezes Cardio: Rate: regular rate Rhythm: regular rhythm GI: Inspection: normal to inspection GI Palp: No abdominal tenderness and No Guarding due to palpation present (GI) Auscultation: normal bowel sounds Neuro: General: oriented to person Objective Data Vital Signs Vital Signs: Vital Signs - 24 hr 05/18/20 16:46 05/18/20 17:05 05/18/20 17:15 Temperature Pulse Rate 108 H 124 H 121 H Respiratory Rate 19 17 15 Blood Pressure 87/63 L 86/57 L Pulse Oximetry 92 93 05/18/20 17:17 05/18/20 18:01 05/18/20 18:45 Temperature 36.9 C Pulse Rate 109 H 117 H 91 Respiratory Rate 15 14 17 Blood Pressure 82/6 L 93/53 L Pulse Oximetry 96 93 05/18/20 20:00 05/18/20 20:15 05/18/20 22:00 Temperature 37.4 C 37.4 C Pulse Rate 80 82 78 Respiratory Rate 16 16 Blood Pressure 78/53 L 78/53 L 94/59 L Pulse Oximetry 98 98 05/19/20 00:00 05/19/20 01:10 05/19/20 02:00 Temperature 37.3 C 37.3 C Pulse Rate 77 76 82 Respiratory Rate 14 18 Blood Pressure 96/67 L 115/56 L 138/68 Pulse Oximetry 98 97 05/19/20 02:03 05/19/20 04:00 05/19/20 04:30 Temperature 37.0 C Pulse Rate 82 75 75 Respiratory Rate 16 Blood Pressure 138/68 107/63 108/62 Pulse Oximetry 99 05/19/20 05:40 05/19/20 06:00 05/19/20 07:15 Temperature 37.3 C Pulse Rate 81 85 73 Respiratory Rate 18 18 Blood Pressure 106/61 100/64 Pulse Oximetry 98 98 05/19/20 08:00 05/19/20 08:22 05/19/20 08:47 Temperature 36.8 C Pulse Rate 76 76 Respiratory Rate 18 16 Blood Pressure 115/61 Pulse Oximetry 95 95 96 05/19/20 09:45 05/19/20 10:00 05/19/20 12:00 Temperature 36.7 C 36.9 C Pulse Rate 70 76 Respiratory Rate 16 21 H Blood Pressure 109/66 124/72 Pulse Oximetry 96 94 93 05/19/20 14:00 05/19/20 16:00 Temperature 37.0 C 37.1 C Pulse Rate 78 79 Respiratory Rate 21 H 21 H Blood Pressure 118/64 133/79 Pulse Oximetry 93 94 Intake/Output Intake/Output: Intake & Output 05/16/20 05/17/20 05/18/20 05/19/20 23:59 23:59 23:59 23:59 Intake Total 3150 2325 Output Total 207 Balance 3150 2118 Meds/Results Medications: Active Medications Generic Name Dose Route Start Last Admin Trade Name Freq PRN Reason Stop Dose Admin Norepinephrine Bitartrate 8 mg in 250 mls @ 0 mls/hr 05/18/20 14:30 05/19/20 05:40 Levophed 8 Mg/D5w 250 Ml IV CONT 0 mcg/min .Q0M SAVANNA 0 mls/hr Infusion Lactated Ringer's 1,000 mls @ 75 mls/hr 05/18/20 14:35 05/19/20 13:40 Lr - Lactated Ringers Iv IV CONT 75 mls/hr .[id number] SAVANNA Administration Imipenem/Cilastatin Sodium 250 mg in 100 mls @ 300 mls/hr 05/18/20 21:00 05/19/20 14:18 Primaxin 250 Mg/D5w 100 Ml IVPB Infused Q12HR SAVANNA Infusion Radiology Results: ITS Impressions Chest/Abdomen/Pelvis CT 05/18/20 13:27 IMPRESSION: 1. Findings consistent with acute cholecystitis. 2. Indeterminate 6 mm nodule of the right middle lobe. Recommend follow-up CT in 6-12 months. Chest X-Ray 05/18/20 16:51 IMPRESSION: 1. Central line tip at superior cavoatrial junction. 2. Worsened airspace opacities at left lung base, consistent with atelectasis versus pne
--- NOTE | 2020-05-19 16:47 | PM.CNNEP ---
Assessment and Plan Assessment and plan (1) Acute renal failure: Qualifiers: Acute renal failure type: unspecified Qualified Code(s): N17.9 - Acute kidney failure, unspecified Code(s): N17.9 - Acute kidney failure, unspecified Status: Acute Assessment and Plan: due to multifactorial ATN: - hemodynamic instability/hypotension/shock - infection (cholecystitis) - pre-renal factors - LIZZY-I use prior to admission renal ultrasound without obstruction urine electrolytes c/w pre-renal azotemia follow trend of repeat labs and UOP with interventions date (2) Septic shock: Onset Date: ~05/18/20 Code(s): A41.9 - Sepsis, unspecified organism; R65.21 - Severe sepsis with septic shock Status: Resolved Assessment and Plan: due to #3 pressor support and wean as tolerated culture data noted on IV antibiotics continue supportive therapy (3) Acute cholecystitis: Onset Date: ~05/15/20 Code(s): K81.0 - Acute cholecystitis Status: Acute Assessment and Plan: as noted by umaging studies to date General Surgery following s/p cholecystostomy tube placement by IR today on antibiotics (4) Paroxysmal atrial fibrillation: Code(s): I48.0 - Paroxysmal atrial fibrillation Status: Acute Assessment and Plan: off medications for this in/out of afib but rate controlled Long and extensive discussion (> 20 minutes) with patient and daughter at bed regarding the above issues with emphasis on her KAVITA/ARF and the hope of renal recovery with ongoing supportive therapy. Will continue to follow. History of Present Illness Reason for Consult Consult date: 05/19/20 Reason for consult: acute renal failure Chief Complaint Chief complaint: Septic Shock/Acute Cholecystitis/ARF History of Present Illness Narrative: The patient is an 85-year-old female with a past medical history as outlined below who presented to [facility] Emergency room via EMS for generalized weakness and mild shortness of breath. The patient states that she has not been feeling well for the last 3-4 days with vague symptoms including the a for mentioned weakness in association with nausea vomiting and loose stools. She reports subjective fevers and association with diaphoresis but cannot tell me if she actually had no a specific fever. She also noticed that her urine output seems to be somewhat less than usual and her family was concerned that dehydration may be playing a role with her symptoms.When family members try to help the patient to a bedside commode, she suddenly began to be breathing heavily and appeared short of breath which led to calling 911 and subsequent EMS arrival and transport to the emergency room. Workup and evaluation emergency room demonstrated the patient to be hypoxic as well as hypotensive. She was started on aggressive IV fluid resuscitation and supplemental oxygen was applied as well. Routine blood test demonstrated a marked decline in her kidney function as well A significant leukocytosis with left shift.. A CT scan of the abdomen pelvis in demonstrated acute cholecystitis with the concern for possible sepsis due to this issue given her hypotension on presentation. Her blood pressure did not seem to improve despite IV fluid resuscitation so she had a central line placed and was started on vasopressor therapy. Appropriate cultures were obtained and she was started on broad-spectrum IV antibiotic therapy with subsequent admission to the intensive care unit. Since her admission, her blood pressure appears to be doing better and she has already been seen by surgery who recommended a cholecystostomy tube placement for decompression of her gallbladder/cholecystitis. She had this procedure done earlier today and tolerated fairly well. Renal consultation was requested due to her acu
--- NOTE | 2020-05-19 17:00 | PC.NURSE ---
Informed Dr. Castro that surgery was ok with restarting Eliquis as well as other home medication. Dr. Castro stated I will restart all of those in the morning.
[2020-05-19] MEDS: AMIODARONE HCL 100 MG TABLET PO (21:28)
[2020-05-19] MEDS: APIXABAN 2.5 MG TABLET BY MOUTH (21:28)
[2020-05-20] VITALS (14 sets, daily range): BP systolic 123–160; BP diastolic 62–87; PULSE 66–84; RESP 16–20; TEMP 36.2–36.9; O2SAT 91–97
[2020-05-20] MEDS: LACTATED RINGERS 1,000 ML 75 ML IV CONT ×2 (03:15→16:07)
[2020-05-20 04:56] LABS: Basophils Absolute Auto 0.1 K/mm3 (0.0-0.1); Basophils Percent Auto 0.3 % (0.2-1.2); Hematocrit 30.1 % (37.0-47.0); Hemoglobin 10.3 g/dL (12.0-15.0); Immature Granulocyte Absolute 0.87 K/mm3 (0.00-0.031); Lymphocytes Absolute Auto 0.78 K/mm3 (0.9-3.2); Lymphocytes Percent Auto 2.7 % (18.3-44.2); Mean Corpuscular HGB Conc 34.2 g/dl (32-36); Mean Corpuscular Hemoglobin 32.5 pg (26-34); Mean Platelet Volume 10.9 fl (7.4-10.4); Monocytes Absolute Auto 1.5 K/mm3 (0.1-0.6); Monocytes Percent Auto 5.2 % (2.6-8.5); Neutrophils Percent Auto 88.8 % (45.5-73.1); Platelet Count Result 141 k/mm3 (150-375); Red Blood Count 3.17 M/mm3 (4.2-5.4); Red Cell Distribution Width 13.7 % (11.5-14.5); White Blood Count 29.3 K/mm3 (4.5-10.0)
[2020-05-20 05:13] LABS: Alanine Aminotransferase 23 U/L (4-35); Albumin Level 2.6 g/dL (3.5-5.1); Alkaline Phosphatase 64 U/L (38-126); Anion Gap 4 mmol/L (8-16); Aspartate Amino Transferase 35 U/L (14-36); Bilirubin,Total 1.6 mg/dL (0.2-1.3); Blood Urea Nitrogen 48 mg/dL (7-17); Calcium 7.9 mg/dL (8.4-10.2); Carbon Dioxide 28 mmol/L (22-30); Chloride 104 mmol/L (98-107); Estimated CRCL calculation 19 ml/min; Estimated Glomerular Filt Rate 29; Glucose 108 mg/dL (65-105); Magnesium 2.3 mg/dL (1.6-2.3); Potassium 4.2 mmol/L (3.4-5.0); Sodium 136 mmol/L (137-145)
[2020-05-20] MEDS: AMIODARONE HCL 100 MG TABLET PO (08:20)
[2020-05-20] MEDS: APIXABAN 2.5 MG TABLET BY MOUTH ×2 (08:21→17:46)
--- NOTE | 2020-05-20 09:33 | WPDINTPN ---
Progress Note: A&P Assessment and Plan (1) Septic shock: Onset Date: ~05/18/20 Code(s): A41.9 - Sepsis, unspecified organism; R65.21 - Severe sepsis with septic shock Status: Acute Assessment and Plan: Patient presented with hypotension, if agitated to adequate fluid resuscitation per sepsis guidelines -central line was inserted in the ER and started on Levophed -OFF LEVOPHED -continue imipenem -likely source acute cholecystitis as seen on CT on the chest abdomen and pelvis -lactic acidosis has resolved -urine output improving, creatinine trending down, continue to monitor -blood cultures growing Gram-negative bacilli 2/2 bottles, await identification and sensitivities (2) Acute cholecystitis: Onset Date: ~05/15/20 Code(s): K81.0 - Acute cholecystitis Status: Acute Assessment and Plan: Acute cholecystitis as seen on the CT scan of the abdomen pelvis, - Appreciate surgery evaluation and recommendation -05/19 status post percutaneous cholecystostomy by IR, draining bile, surgery to manage to percutaneous drain -continue antibiotics as above (3) Acute renal failure: Qualifiers: Acute renal failure type: unspecified Qualified Code(s): N17.9 - Acute kidney failure, unspecified Code(s): N17.9 - Acute kidney failure, unspecified Status: Acute Assessment and Plan: Acute kidney injury could be related to hypotension, septic shock, acute cholecystitis, LIZZY-inhibitor the patient uses at home -urine output improving, creatinine trending down. -ultrasound was unremarkable -continue to monitor renal function, electrolytes and urine output (4) Paroxysmal atrial fibrillation: Code(s): I48.0 - Paroxysmal atrial fibrillation Status: Acute Assessment and Plan: Patient with history of paroxysmal AFib, started apixaban and amiodarone on 05/20/2019 after cholecystostomy tube was inserted -patient remains in in and out of AFib but rate controlled, -continue to monitor (5) Right middle lobe pulmonary nodule: Code(s): R91.1 - Solitary pulmonary nodule Status: Acute Assessment and Plan: Nodule as seen on CT scan, follow-up CT in 6-12 months has been recommended (6) DVT prophylaxis: Code(s): Z29.9 - Encounter for prophylactic measures, unspecified Status: Acute Assessment and Plan: SCDs and apixaban Additional Plan Discussed with patient updated with her condition and plan of care. Discussed with her regarding her being off Levophed, continue antibiotics, blood pressure is much improved. PT/OT ordered in chair today. Advance diet to full liquids per surgery Transfer out of the ICU Code status: Full code Critical care time spent: 32 minutes This dictation may have been done utilizing a voice recognition system. Attempts have been made to correct errors. However, there may be uncorrected grammatical, spelling, and recognition errors present. Due to a high probability of clinically significant, life threatening deterioration, the patient required my highest level of preparedness to intervene emergently and I personally spent this critical care time directly and personally managing the patient. This critical care time included obtaining a history; examining the patient; pulse oximetry; ordering and review of studies; arranging urgent treatment with development of a management plan; evaluation of patient's response to treatment; frequent reassessment; and discussions with other providers. It was exclusive of separately billable procedures and treating other patients and teaching time. Please see Assessment and Plan section and the rest of the note for further information on patient assessment and treatment Subjective Date/time seen: 05/20/20 09:33 Interval history: 85-year-old female with history of stroke, paroxysmal atrial fibrillation, hyperlipidemia, and hypertension who presented to the emergency department rain
--- NOTE | 2020-05-20 12:51 | PM.IMPN ---
Progress Note: A&P Assessment and Plan (1) Septic shock: Onset Date: ~05/18/20 Code(s): A41.9 - Sepsis, unspecified organism; R65.21 - Severe sepsis with septic shock Status: Resolved Assessment and Plan: Pt had percutaneous cholecystostomy by IR, draining bile, surgery to manage to percutaneous drain off vasopressors continue IV abx (2) Acute cholecystitis: Onset Date: ~05/15/20 Code(s): K81.0 - Acute cholecystitis Status: Acute Assessment and Plan: Patient with acute cholecystitis (3) Acute renal failure: Qualifiers: Acute renal failure type: unspecified Qualified Code(s): N17.9 - Acute kidney failure, unspecified Code(s): N17.9 - Acute kidney failure, unspecified Status: Acute Assessment and Plan: Secondary to septic shock with hypovolemia and hypoperfusion from hypotension. continue to hydrate order cxr (4) Atrial fibrillation with rapid ventricular response: Onset Date: Unknown Code(s): I48.91 - Unspecified atrial fibrillation Status: Acute Assessment and Plan: Patient was in atrial fibrillation/tachycardia with RVR on arrival to the emergency department but is now in a sinus rhythm. . 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 Pt is in ICU seen BY ICU MD and surgery team. Pt admitted with cholecystitis, ARF,septic shock and Af. Pt had percutaneous cholecystostomy by IR, draining bile, surgery to manage to percutaneous drain, pt can be transferred to medical floor. Some complaints of wheezy lungs. Review of Systems Review of Systems: All systems reviewed & are unremarkable except as noted in HPI and below Exam Const: General: tired appearing and other (elderly ); No in distress Nutritional Appearance: overweight Orientation/consciousness: oriented to person HENMT: Head: normal to inspection Resp: Effort & Inspection: no respiratory distress Auscultation: wheezes Cardio: Rate: regular rate Rhythm: regular rhythm GI: Inspection: normal to inspection Auscultation: normal bowel sounds Neuro: General: oriented to person Objective Data Vital Signs Vital Signs: Vital Signs - 24 hr 05/19/20 14:00 05/19/20 16:00 05/19/20 18:00 Temperature 37.0 C 37.1 C 37.1 C Pulse Rate 78 79 79 Respiratory Rate 21 H 21 H 22 H Blood Pressure 118/64 133/79 155/89 H Pulse Oximetry 93 94 95 05/19/20 20:00 05/19/20 21:00 05/19/20 21:28 Temperature 37.2 C Pulse Rate 75 83 83 Respiratory Rate 21 H 22 H Blood Pressure 124/83 Pulse Oximetry 94 95 05/19/20 22:00 05/19/20 23:53 05/20/20 00:00 Temperature 37.1 C 36.9 C Pulse Rate 78 72 79 Respiratory Rate 18 18 18 Blood Pressure 151/84 H 148/81 H Pulse Oximetry 93 92 94 05/20/20 02:00 05/20/20 03:58 05/20/20 04:00 Temperature 36.8 C 36.8 C Pulse Rate 71 71 70 Respiratory Rate 17 17 19 Blood Pressure 123/78 140/75 Pulse Oximetry 92 92 94 05/20/20 06:00 05/20/20 08:00 05/20/20 08:20 Temperature 36.8 C 36.8 C Pulse Rate 70 75 76 Respiratory Rate 17 20 Blood Pressure 129/80 160/86 H Pulse Oximetry 93 95 05/20/20 08:32 05/20/20 10:00 Temperature 36.9 C Pulse Rate 84 69 Respiratory Rate 17 Blood Pressure 124/62 Pulse Oximetry 95 91 Intake/Output Intake/Output: Intake & Output 05/17/20 05/18/20 03
--- NOTE | 2020-05-20 14:41 | PM.PNGS ---
Progress Note: A&P Assessment and Plan (1) Acute cholecystitis: Onset Date: ~05/15/20 Code(s): K81.0 - Acute cholecystitis Status: Acute Assessment and Plan: Likely source of sepsis. WBC down slightly today to 29,000. S/p US-guided percutaneous cholecystostomy tube placement in Radiology yesterday. Await culture results. Continue broad-spectrum IV abx. Advancing to full liquids today (2) Septic shock: Onset Date: ~05/18/20 Code(s): A41.9 - Sepsis, unspecified organism; R65.21 - Severe sepsis with septic shock Status: Resolved Assessment and Plan: Gallbladder is the likely source. Has received adequate IV fluid resuscitation and BP remains stable off vasopressor support. Preliminary blood cx show growth of gram negative bacilli in 2/2 bottles. Continue broad-spectrum IV abx. See plan above. Continue to monitor labs. Okay from our standpoint to move her out of ICU. (3) Acute renal failure: Qualifiers: Acute renal failure type: unspecified Qualified Code(s): N17.9 - Acute kidney failure, unspecified Code(s): N17.9 - Acute kidney failure, unspecified Status: Acute Assessment and Plan: Creatinine improved today. Continue to monitor labs. Management per primary service. (4) Atrial fibrillation with rapid ventricular response: Onset Date: Unknown Code(s): I48.91 - Unspecified atrial fibrillation Status: Acute Assessment and Plan: Currently rate controlled. Restarted on her Eliquis last night. Management per primary service. (5) Current use of halfway anticoagulation: Code(s): Z79.01 - nursing home (current) use of anticoagulants Status: Acute Assessment and Plan: On Eliquis. (6) History of CVA with residual deficit: Code(s): I69.30 - Unspecified sequelae of cerebral infarction Status: Acute Additional Plan I discussed the patient's plan of care with Dr. Holder. Patient also has audible wheezing and labored breathing today on exam. She is not hypoxic and O2 sats are stable on room air. Discussed this with the Hospitalist regarding possibly getting a chest x-ray to further evaluate. She did have multiple episodes of vomiting prior to admission and there would be a concern for possible aspiration. Subjective Subjective Date/Time Seen: 05/20/20 14:41 Patient reports: feels better, tolerating liquids well, bowel movement (yesterday) and afebrile Interval history: Patient seen today with family at the bedside. She reports feeling good today with no abdominal pain, nausea, or vomiting. Tolerating liquids. Reports audible wheezing and slight non-productive cough. No other complaints. Sat up in the chair and walked in the room today for the first time since admission. Review of Systems Review of Systems: All systems reviewed & are unremarkable except as noted in HPI and below Exam Const: General: no acute distress, alert and awake Orientation/consciousness: patient oriented x3 Resp: Effort & Inspection: audible wheezes and labored Auscultation: wheezes expiratory wheezes and diminished lung sounds bilateral in the lower lung moore Cardio: Rate: regular rate Rhythm: abnormal rhythm irregularly irregular GI: Inspection: non-distended GI Palp: Yes Soft to palpation and No Tenderness to palpation present (GI) Auscultation: normal bowel sounds Other: RUQ percutaneous cholecystostomy drain in place with cloudy brown, bilious-appearing output Urinary Catheter: Urinary Catheter: patent and draining Skin: General skin exam: normal color Neuro: General: moves all extremities and no focal motor deficits Extrem: General: no clubbing, cyanosis or edema and no calf tenderness Psych: Mental Status: mental status grossly normal Insight: Fair insight present (Psych) Judgement: Fair judgement present (Psych) Objective Data Vital Signs Vital Signs: Vital Signs - 24 hr 05/19/20 16:0
--- NOTE | 2020-05-20 15:07 | PM.PNNEP ---
Progress Note: A&P Assessment and Plan (1) Acute renal failure: Qualifiers: Acute renal failure type: unspecified Qualified Code(s): N17.9 - Acute kidney failure, unspecified Code(s): N17.9 - Acute kidney failure, unspecified Status: Acute Assessment and Plan: due to multifactorial ATN: - hemodynamic instability/hypotension/shock - infection (cholecystitis) - pre-renal factors - LIZZY-I use prior to admission renal ultrasound without obstruction urine electrolytes c/w pre-renal azotemia creatinine improving with reasonably urine output follow trend of labs and UOP (2) Septic shock: Onset Date: ~05/18/20 Code(s): A41.9 - Sepsis, unspecified organism; R65.21 - Severe sepsis with septic shock Status: Acute Assessment and Plan: due to #3 resolving -- off pressors culture data noted on IV antibiotics continue supportive therapy (3) Acute cholecystitis: Onset Date: ~05/15/20 Code(s): K81.0 - Acute cholecystitis Status: Acute Assessment and Plan: as noted by imaging studies to date General Surgery following s/p cholecystostomy tube placement by IR on antibiotics (4) Paroxysmal atrial fibrillation: Code(s): I48.0 - Paroxysmal atrial fibrillation Status: Acute Assessment and Plan: off medications for this in/out of afib but rate controlled Will continue to follow. Subjective Date/time seen: 05/20/20 15:07 Transferred out of ICU -- weaned of pressor support with relatively stable hemodynamics; tolerated cholecystostomy tube placement by IR yesterday; no apparent distress voiced at this time. Exam Narrative: Exam Narrative: General: Elderly Caucausan female in NAD Heart: normal S1 and S2; no rub Lungs: clear to auscultation Abdomen: soft, nontender, nondistended, positive bowel sounds Extremities: no cyanosis or clubbing; no edema Skin: warm and dry Objective Data Vital Signs Vital Signs: Vital Signs Temp Pulse Resp BP Pulse Ox 05/20/20 10:00 36.9 C 69 17 124/62 91 05/20/20 08:32 84 95 05/20/20 08:20 76 05/20/20 08:00 36.8 C 75 20 160/86 H 95 05/20/20 06:00 36.8 C 70 17 129/80 93 05/20/20 04:00 36.8 C 70 19 140/75 94 05/20/20 03:58 71 17 92 05/20/20 02:00 36.8 C 71 17 123/78 92 05/20/20 00:00 36.9 C 79 18 148/81 H 94 05/19/20 23:53 72 18 92 05/19/20 22:00 37.1 C 78 18 151/84 H 93 05/19/20 21:28 83 05/19/20 21:00 83 22 H 95 05/19/20 20:00 37.2 C 75 21 H 124/83 94 Intake/Output Intake/Output: Intake & Output 05/17/20 05/18/20 05/19/20 05/20/20 23:59 23:59 23:59 23:59 Intake Total 3150 2868 2627 Output Total 567 1680 Balance 3150 2301 947 Meds/Results Medications: Active Medications Generic Name Dose Route Start Last Admin Trade Name Freq PRN Reason Stop Dose Admin Albuterol 2.5 mg 05/20/20 16:07 05/20/20 16:58 Albuterol Sulfate Neb 2.5 Mg/0.5 Ml Inh INHALATION 2.5 mg Q6HRT PRN Administration Shortness Of Breath Amiodarone HCl 100 mg 05/19/20 21:30 05/20/20 08:20 Amiodarone Hcl 100 Mg Tablet PO 100 mg DAILY SAVANNA Administration Apixaban 2.5 mg 05/19/20 21:30 05/20/20 17:46 Apixaban 2.5 Mg Tablet BY MOUTH 2.5 mg BID SAVANNA Administration Benzocaine 1 lozenge 05/20/20 12:21 Benzocaine/Menthol (*Bkc) 18 Ea Lozenge PO PRN PRN Sore Throat Hydralazine HCl 10 mg 05/20/20 09:34 Hydralazine Hcl 20 Mg/Ml Vial IV PUSH Q4H PRN Blood Pressure - High Imipenem/Cilastatin Sodium 250 mg in 100 mls @ 300 mls/hr 05/18/20 21:00 05/20/20 10:41 Primaxin 250 Mg/D5w 100 Ml IVPB Infused Q12HR SAVANNA Infusion Sodium Chloride 10 ml 05/20/20 14:00 05/20/20 15:08 Central Line Flush IV PUSH 10 ml Q8HR SAVANNA Administration Sodium Chloride 20 ml 05/20/20
[2020-05-20] MEDS: CENTRAL LINE FLUSH 10 ML IV PUSH ×2 (15:08→22:47)
--- NOTE | 2020-05-20 15:45 | PC.NURSE ---
This patient, Ashly Larry, was transferred to [[id number] ] on 05/20/20 at 1557. Personal belongings sent with patient. Report given to [LAUREN Lipscomb @ [phone] ]. Appropriate documentation sent with patient.
--- NOTE | 2020-05-20 15:45 | PC.NURSE ---
Received patient from ICU via bed with ICU staff. Patient settled in room. Daughter at bedside. No c/o pain. Percutaneous drain noted to right abdomen draining small amount yellowish-brown drainage. Patient with audible wheezing noted. States she feels like she has to clear her throat a lot. Patient had CXR earlier today. O2 sat 97% on room air.
--- NOTE | 2020-05-20 16:49 | PC.NURSE ---
Called R.T. and requested prn Albuerol neb treatment for continued wheezing.
[2020-05-20] MEDS: ALBUTEROL SULFATE NEB 2.5 MG/0.5 ML INH INHALATION (16:58)
--- NOTE | 2020-05-20 17:00 | PC.NURSE ---
Called Dr. Castro to discuss continued audible wheezing after prn Albuterol nebulizer given. Orders received to d/c IVFs.
[2020-05-21] VITALS (8 sets, daily range): BP systolic 146–169; BP diastolic 74–83; PULSE 66–69; RESP 16–20; TEMP 36–36.2; O2SAT 95–99
[2020-05-21 06:27] LABS: Basophils Absolute Auto 0.1 K/mm3 (0.0-0.1); Basophils Percent Auto 0.2 % (0.2-1.2); Eosinophils Percent Auto 0.1 % (0-4.4); Hematocrit 31.9 % (37.0-47.0); Hemoglobin 10.7 g/dL (12.0-15.0); Immature Granulocyte Absolute 0.37 K/mm3 (0.00-0.031); Immature Granulocyte Percent A 1.6 % (0-0.5); Lymphocytes Absolute Auto 1.39 K/mm3 (0.9-3.2); Mean Corpuscular HGB Conc 33.5 g/dl (32-36); Mean Corpuscular Hemoglobin 31.8 pg (26-34); Mean Corpuscular Volume 94.7 fl (80-100); Mean Platelet Volume 11.6 fl (7.4-10.4); Monocytes Absolute Auto 1.4 K/mm3 (0.1-0.6); Monocytes Percent Auto 5.9 % (2.6-8.5); Neutrophils Absolute Auto 19.9 K/mm3 (1.3-6.7); Neutrophils Percent Auto 86.2 % (45.5-73.1); Platelet Count Result 145 k/mm3 (150-375); Red Blood Count 3.37 M/mm3 (4.2-5.4); Red Cell Distribution Width 13.8 % (11.5-14.5); White Blood Count 23.1 K/mm3 (4.5-10.0)
[2020-05-21 06:42] LABS: Alanine Aminotransferase 23 U/L (4-35); Albumin Level 2.6 g/dL (3.5-5.1); Alkaline Phosphatase 68 U/L (38-126); Anion Gap 0 mmol/L (8-16); Aspartate Amino Transferase 27 U/L (14-36); Bilirubin,Total 1.2 mg/dL (0.2-1.3); Blood Urea Nitrogen 38 mg/dL (7-17); Calcium 8.3 mg/dL (8.4-10.2); Carbon Dioxide 31 mmol/L (22-30); Chloride 106 mmol/L (98-107); Estimated CRCL calculation 28 ml/min; Estimated Glomerular Filt Rate 43; Glucose 102 mg/dL (65-105); Potassium 3.9 mmol/L (3.4-5.0); Sodium 137 mmol/L (137-145)
[2020-05-21] MEDS: CENTRAL LINE FLUSH 10 ML IV PUSH ×3 (06:48→21:27)
[2020-05-21] MEDS: ALBUTEROL SULFATE NEB 2.5 MG/0.5 ML INH INHALATION (07:11)
[2020-05-21] MEDS: AMIODARONE HCL 100 MG TABLET PO (08:25)
[2020-05-21] MEDS: APIXABAN 2.5 MG TABLET BY MOUTH ×2 (08:26→17:53)
--- NOTE | 2020-05-21 10:58 | PC.NURSE ---
Patient asking if she can have her mcpherson catheter removed. Discussed with Dr. Castro. She would like catheter kept in for at least another day. Relayed info patient and family. Patient continues to have audible wheezing at intervals but improved since yesterday. States she feels like she constantly needs to clear her throat . Notified Dr. Castro of both. No new orders received.
--- NOTE | 2020-05-21 12:36 | PC.NURSE ---
Patient states she had a large BM during the night and also the night she was in ICU - she had a diarrhea stool. Does not want fleets enema.
--- NOTE | 2020-05-21 12:54 | PCOTNOTE ---
Attempted OT treatment, but unable to complete as patient eating lunch. Will attempt again later.
--- NOTE | 2020-05-21 12:56 | PM.IMPN ---
Progress Note: A&P Assessment and Plan (1) Septic shock: Onset Date: ~05/18/20 Code(s): A41.9 - Sepsis, unspecified organism; R65.21 - Severe sepsis with septic shock Status: Resolved Assessment and Plan: Pt had percutaneous cholecystostomy by IR, draining bile, surgery to manage to percutaneous drain continue iv abx awaiting cultures, wcc still high, surgery rounding (2) Acute cholecystitis: Onset Date: ~05/15/20 Code(s): K81.0 - Acute cholecystitis Status: Acute Assessment and Plan: Patient with acute cholecystitis (3) Acute renal failure: Qualifiers: Acute renal failure type: unspecified Qualified Code(s): N17.9 - Acute kidney failure, unspecified Code(s): N17.9 - Acute kidney failure, unspecified Status: Acute Assessment and Plan: Secondary to septic shock with hypovolemia and hypoperfusion from hypotension. creat is 1.2, nephrology rounding (4) Atrial fibrillation with rapid ventricular response: Onset Date: Unknown Code(s): I48.91 - Unspecified atrial fibrillation Status: Acute Assessment and Plan: Patient was in atrial fibrillation/tachycardia with RVR on arrival to the emergency department but is now in a sinus rhythm. 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 Pt is in ICU seen BY ICU MD and surgery team. Pt admitted with cholecystitis, ARF,septic shock and Af. Pt had percutaneous cholecystostomy by IR, draining bile, surgery to manage to percutaneous drain. Pt encouraged to sit up and use incentive spirometry. Review of Systems Review of Systems: All systems reviewed & are unremarkable except as noted in HPI and below Exam Const: General: tired appearing and other (elderly ); No in distress Nutritional Appearance: overweight Orientation/consciousness: oriented to person HENMT: Head: normal to inspection Resp: Effort & Inspection: no respiratory distress Cardio: Rate: regular rate Rhythm: regular rhythm GI: Inspection: normal to inspection and other (pt has percutaneus drain insitu with some drainage ) Auscultation: normal bowel sounds Neuro: General: oriented to person Objective Data Vital Signs Vital Signs: Vital Signs - 24 hr 05/20/20 16:05 05/20/20 17:01 05/20/20 17:11 Temperature 36.3 C L Pulse Rate 66 68 74 Respiratory Rate 16 18 18 Blood Pressure 152/87 H Pulse Oximetry 97 05/20/20 20:00 05/20/20 21:55 05/21/20 06:44 Temperature 36.2 C L 36.2 C L Pulse Rate 76 76 66 Respiratory Rate 16 16 18 Blood Pressure 130/65 169/81 H Pulse Oximetry 95 95 96 05/21/20 07:11 05/21/20 07:23 05/21/20 08:25 Temperature Pulse Rate 68 68 68 Respiratory Rate 18 18 Blood Pressure Pulse Oximetry 05/21/20 08:58 Temperature 36.0 C L Pulse Rate 68 Respiratory Rate 16 Blood Pressure 150/74 H Pulse Oximetry 99 Intake/Output Intake/Output: Intake & Output 05/18/20 05/19/20 05/20/20 05/21/20 23:59 23:59 23:59 23:59 Intake Total 3150 2868 2967 540 Output Total 567 1680 780 Balance 3150 2301 1287 -240 Meds/Results Medications: Active Medications Generic Name Dose Route Start Las
--- NOTE | 2020-05-21 13:14 | PM.PNNEP ---
Progress Note: A&P Assessment and Plan (1) Acute renal failure: Qualifiers: Acute renal failure type: unspecified Qualified Code(s): N17.9 - Acute kidney failure, unspecified Code(s): N17.9 - Acute kidney failure, unspecified Status: Acute Assessment and Plan: improving due to multifactorial ATN: - hemodynamic instability/hypotension/shock - infection (cholecystitis) - pre-renal factors - LIZZY-I use prior to admission renal ultrasound without obstruction urine electrolytes c/w pre-renal azotemia follow trend of repeat labs and UOP with interventions date (2) Septic shock: Onset Date: ~05/18/20 Code(s): A41.9 - Sepsis, unspecified organism; R65.21 - Severe sepsis with septic shock Status: Resolved Assessment and Plan: due to #3 remains hemodynamically stable at this time culture data noted: - blood cultures with E. coli and Enterococcus - bile cultures with E. coli and Clostridium perfringes on IV antibiotics continue supportive therapy (3) Acute cholecystitis: Onset Date: ~05/15/20 Code(s): K81.0 - Acute cholecystitis Status: Acute Assessment and Plan: as noted by imaging studies to date General Surgery following s/p cholecystostomy tube placement by IR on antibiotics (4) Paroxysmal atrial fibrillation: Code(s): I48.0 - Paroxysmal atrial fibrillation Status: Acute Assessment and Plan: on amiodarone in/out of afib but rate controlled Will continue to follow. Subjective Date/time seen: 05/21/20 13:14 Appears to be slowly improving in general; reasonably urine output and tolerating oral intake with slow advancement; culture results noted; no apparent distress voiced at the time of my visit; no events/issues overnight or earlier this AM. Exam Narrative: Exam Narrative: General: Elderly female in NAD Heart: normal S1 and S2; no rub Lungs: clear to auscultation Abdomen: soft, nontender, nondistended, positive bowel sounds Extremities: no cyanosis or clubbing; no edema Skin: warm and intact Objective Data Vital Signs Vital Signs: Vital Signs Temp Pulse Resp BP Pulse Ox 05/21/20 08:58 36.0 C L 68 16 150/74 H 99 05/21/20 08:25 68 05/21/20 07:23 68 18 05/21/20 07:11 68 18 05/21/20 06:44 36.2 C L 66 18 169/81 H 96 05/20/20 21:55 36.2 C L 76 16 130/65 95 05/20/20 20:00 76 16 95 05/20/20 17:11 74 18 05/20/20 17:01 68 18 05/20/20 16:05 36.3 C L 66 16 152/87 H 97 Intake/Output Intake/Output: Intake & Output 05/18/20 05/19/20 05/20/20 05/21/20 23:59 23:59 23:59 23:59 Intake Total 3150 2868 2967 540 Output Total 567 1680 780 Balance 3150 2301 1287 -240 Meds/Results Medications: Active Medications Generic Name Dose Route Start Last Admin Trade Name Freq PRN Reason Stop Dose Admin Albuterol 2.5 mg 05/20/20 16:07 05/21/20 07:11 Albuterol Sulfate Neb 2.5 Mg/0.5 Ml Inh INHALATION 2.5 mg Q6HRT PRN Administration Shortness Of Breath Amiodarone HCl 100 mg 05/19/20 21:30 05/21/20 08:25 Amiodarone Hcl 100 Mg Tablet PO 100 mg DAILY SAVANNA Administration Apixaban 2.5 mg 05/19/20 21:30 05/21/20 08:26 Apixaban 2.5 Mg Tablet BY MOUTH 2.5 mg BID SAVANNA Administration Benzocaine 1 lozenge 05/20/20 12:21 Benzocaine/Menthol (*Bkc) 18 Ea Lozenge PO PRN PRN Sore Throat Hydralazine HCl 10 mg 05/20/20 09:34 Hydralazine Hcl 20 Mg/Ml Vial IV PUSH Q4H PRN Blood Pressure - High Imipenem/Cilastatin Sodium 250 mg in 100 mls @ 300 mls/hr 05/21/20 06:00 05/21/20 12:26 Primaxin 250 Mg/D5w 100 Ml IVPB 100 mls/hr Q6HR SAVANNA Administration Sodium Chloride 10 ml 05/20/20 14:00 05/21/20 12:27 Central Line Flush IV PUSH 10 ml Q8HR SAVANNA Administration S
--- NOTE | 2020-05-21 13:21 | PM.PNGS ---
Progress Note: A&P Assessment and Plan (1) Acute cholecystitis: Onset Date: ~05/15/20 Code(s): K81.0 - Acute cholecystitis Status: Acute Assessment and Plan: Likely source of sepsis. WBC down slightly today to 23,000. S/p US-guided percutaneous cholecystostomy tube placement in Radiology 05/19. Await culture results (gram neg bacilli noted on gram stain). Continue broad-spectrum IV abx. Advancing to low fat/low salt diet today (2) Septic shock: Onset Date: ~05/18/20 Code(s): A41.9 - Sepsis, unspecified organism; R65.21 - Severe sepsis with septic shock Status: Resolved Assessment and Plan: Gallbladder is the likely source. Has received adequate IV fluid resuscitation and BP remains stable off vasopressor support. Preliminary blood cx show growth of gram negative bacilli in 2/2 bottles(consistent with gram stain for the bile). Continue broad-spectrum IV abx. See plan above. Continue to monitor labs. (3) Acute renal failure: Qualifiers: Acute renal failure type: unspecified Qualified Code(s): N17.9 - Acute kidney failure, unspecified Code(s): N17.9 - Acute kidney failure, unspecified Status: Acute Assessment and Plan: Creatinine improved today. Continue to monitor labs. Management per primary service/nephrology. (4) Atrial fibrillation with rapid ventricular response: Onset Date: Unknown Code(s): I48.91 - Unspecified atrial fibrillation Status: Acute Assessment and Plan: Currently rate controlled. Restarted on her Eliquis 05/20. Management per primary service. 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 (6) History of CVA with residual deficit: Code(s): I69.30 - Unspecified sequelae of cerebral infarction Status: Acute Additional Plan I discussed the patient's plan of care with Dr. Duncan. She is not hypoxic and O2 sats are stable on room air. Discussed this with the Hospitalist regarding possibly getting her started on some incentive spirometry, and they have already started her on some respiratory treatments that have helped. She did have multiple episodes of vomiting prior to admission and there would be a concern for possible aspiration. Subjective Subjective Date/Time Seen: 05/21/20 13:21 Interval history: Patient is sitting up in bed when I entered the room. Patient's daughter was with her. They seemed understand how to take care of the percutaneous gallbladder drain. Patient still has a Ortiz catheter in, however this may be able to come out today. Urine output has been steadily improving and her renal function is also improving. Will await assessment of Nephrology and hospitalist. Patient would like to increase her diet. She is not nauseated and denies abdominal pain today. Review of Systems Review of Systems: All systems reviewed & are unremarkable except as noted in HPI and below Constitutional: Constitutional: Reports as per HPI and Denies headache(s) ENT: Reports Normal hearing present, Denies change in voice, Denies dizziness and Denies headache(s) Cardiovascular: Cardiovascular: Denies chest pain, Reports dyspnea and Denies dyspnea on exertion Respiratory: Respiratory: Reports dyspnea, Denies dyspnea on exertion and Denies wheezing Gastrointestinal: Gastrointestinal: Reports abdominal pain Musculoskeletal: Musculoskeletal: Denies back pain and Denies arthralgias Endocrine: Endocrine: Reports no additional endocrine complaints Hematologic/Lymphatic: Hematologic/Lymphatic: Reports no additional hematologic/lymphatic complaints Allergic/Immunologic: Allergic/Immunologic: Denies wheezing Exam Const: General: cooperative, no acute distress, well developed, alert and awake Nutritional Appearance: well nourished Orientation/consciousne
--- NOTE | 2020-05-21 13:58 | PC.NURSE ---
On 05/21/20, the student, [ Gabino Varma], provided care and completed [facility] documentation on this patient. I have reviewed the student's documentation and agree with the findings.
--- NOTE | 2020-05-21 14:16 | PCNSR ---
On 05/21/20, the student, Flaca Banuelos, provided care and completed [facility] documentation on this patient. I have reviewed the student's documentation and agree with the findings.
--- NOTE | 2020-05-21 17:00 | PC.NURSE ---
Demonstrated emptying drain to daughter at bedside. Daughter verbalized her understanding. Instructed daughter on keeping track of output at home and bringing output record in to f/u visit with Dr. Holder.
--- NOTE | 2020-05-21 18:26 | PC.NURSE ---
Notified Dr. Castro of edema to left arm. No new orders received.
[2020-05-22] VITALS (7 sets, daily range): BP systolic 143–151; BP diastolic 69–79; PULSE 64–91; RESP 18–20; TEMP 36–36.4; O2SAT 93–96
[2020-05-22 00:59] LABS: H pylori Ag Stool Not Detected (Not Detected)
[2020-05-22] MEDS: CENTRAL LINE FLUSH 10 ML IV PUSH ×3 (05:12→21:01)
[2020-05-22] MEDS: AMIODARONE HCL 100 MG TABLET PO (08:29)
[2020-05-22] MEDS: APIXABAN 2.5 MG TABLET BY MOUTH ×2 (08:29→17:02)
--- NOTE | 2020-05-22 10:32 | PM.IMPN ---
Progress Note: A&P Assessment and Plan (1) Septic shock: Onset Date: ~05/18/20 Code(s): A41.9 - Sepsis, unspecified organism; R65.21 - Severe sepsis with septic shock Status: Resolved Assessment and Plan: Pt had percutaneous cholecystostomy by IR, draining bile, surgery to manage to percutaneous drain continue iv primaxin, cultures are back and are reviewed, wcc still high, surgery rounding, hopeful dc in 1-2days time (2) Acute cholecystitis: Onset Date: ~05/15/20 Code(s): K81.0 - Acute cholecystitis Status: Acute Assessment and Plan: Patient with acute cholecystitis with percutaneous tube in situ (3) Acute renal failure: Qualifiers: Acute renal failure type: unspecified Qualified Code(s): N17.9 - Acute kidney failure, unspecified Code(s): N17.9 - Acute kidney failure, unspecified Status: Acute Assessment and Plan: Secondary to septic shock with hypovolemia and hypoperfusion from hypotension. creat is 1.2, nephrology rounding (4) Atrial fibrillation with rapid ventricular response: Onset Date: Unknown Code(s): I48.91 - Unspecified atrial fibrillation Status: Acute Assessment and Plan: Patient was in atrial fibrillation/tachycardia with RVR on arrival to the emergency department but is now in a sinus rhythm. 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 Status: Acute Assessment and Plan: Apixaban for AF (7) Atelectasis: Code(s): J98.11 - Atelectasis Status: Acute Assessment and Plan: Incentive spirometry, PT , breathing treatments (8) Left arm swelling: Code(s): M79.89 - Other specified soft tissue disorders Status: Acute Assessment and Plan: Venous Doppler ordered for both arms Subjective Date/time seen: 05/22/20 10:32 Interval history: 85-year-old female with history of stroke, paroxysmal atrial fibrillation, hyperlipidemia, and hypertension who presented to the emergency department earlier today via EMS from home with complaints of generalized weakness and shortness of breath. Pt is in ICU seen BY ICU MD and surgery team. Pt admitted with cholecystitis, ARF,septic shock and Af. Pt had percutaneous cholecystostomy by IR, draining bile, surgery to manage to percutaneous drain. Pt left arm is swollen. Venous Doppler ordered. Cultures are back, pt to continue on primaxin for now. Review of Systems Review of Systems: All systems reviewed & are unremarkable except as noted in HPI and below Exam Const: General: tired appearing and other (elderly ); No in distress Nutritional Appearance: overweight Orientation/consciousness: oriented to person HENMT: Head: normal to inspection Resp: Effort & Inspection: no respiratory distress Auscultation: wheezes Cardio: Rate: regular rate Rhythm: regular rhythm GI: Inspection: normal to inspection and other (pt has percutaneus drain insitu with some drainage ) Auscultation: normal bowel sounds Neuro: General: oriented to person Extrem: General: other (left arm is swollen ) Objective Data Vital Signs Vital Signs: Vital Signs - 24 hr 05/21/20 14:00 05/21/20 20:50 05/21/20 21:59 Temperature 36.2 C L 36.0 C L Pulse Rate 68 69 Respiratory Rate 16 20 Blood Pressure 146/83 H 155/77 H Pulse Oximetry 96 95 95 05/22/20 05:29 05/22/20 08:29 05/22/20 09:53 Temperature 36.4 C Pulse Rate 75 64 Respiratory Rate 18 Blood Pressure 143/79 H Pulse Oximetry 93 94 Intake/Output Intake/Output: Intake & Output 05/19/20 05/20/20 05/21/20 05/22/20 23:59 23:59 23:59 23:59 Intake Total 2868 2967 1220 540 Output Total 567 5719 489 1122 Balance 23
--- NOTE | 2020-05-22 10:55 | PM.PNNEP ---
Progress Note: A&P Assessment and Plan (1) Acute renal failure: Qualifiers: Acute renal failure type: unspecified Qualified Code(s): N17.9 - Acute kidney failure, unspecified Code(s): N17.9 - Acute kidney failure, unspecified Status: Acute Assessment and Plan: improving due to multifactorial ATN: - hemodynamic instability/hypotension/shock - infection (cholecystitis) - pre-renal factors - LIZZY-I use prior to admission renal ultrasound without obstruction urine electrolytes c/w pre-renal azotemia follow trend of repeat labs and UOP with interventions date (2) Septic shock: Onset Date: ~05/18/20 Code(s): A41.9 - Sepsis, unspecified organism; R65.21 - Severe sepsis with septic shock Status: Resolved Assessment and Plan: due to #3 remains hemodynamically stable at this time culture data noted: - blood cultures with E. coli and Enterococcus - bile cultures with E. coli and Clostridium perfringes on IV antibiotics continue supportive therapy (3) Acute cholecystitis: Onset Date: ~05/15/20 Code(s): K81.0 - Acute cholecystitis Status: Acute Assessment and Plan: as noted by imaging studies to date General Surgery following s/p cholecystostomy tube placement by IR on antibiotics (4) Paroxysmal atrial fibrillation: Code(s): I48.0 - Paroxysmal atrial fibrillation Status: Acute Assessment and Plan: on amiodarone restarted on eliquis for anticoagulation rate controlled Extensive discussion (>20 minutes) with patient and family at bedside during my visit; answered questions to the best of my ability. Will continue to follow. Subjective Date/time seen: 05/22/20 10:55 Appears to be making slow and steady improvement; tolerating oral intake without any issues relating to nausea or abdominal pain; no apparent distress noted although has noted left arm to be a bit swollen; no other issues/events overnight; discussed situation with family at bedside. Exam Narrative: Exam Narrative: General: Elderly female in NAD Heart: normal S1 and S2; no rub Lungs: clear to auscultation Abdomen: soft, nontender, nondistended, positive bowel sounds Extremities: no cyanosis or clubbing; no edema Skin: no rash or nodules Objective Data Vital Signs Vital Signs: Vital Signs Temp Pulse Resp BP Pulse Ox 05/22/20 09:53 94 05/22/20 08:29 64 05/22/20 05:29 36.4 C 75 18 143/79 H 93 05/21/20 21:59 95 05/21/20 20:50 36.0 C L 69 20 155/77 H 95 05/21/20 14:00 36.2 C L 68 16 146/83 H 96 Intake/Output Intake/Output: Intake & Output 05/19/20 05/20/20 05/21/20 05/22/20 23:59 23:59 23:59 23:59 Intake Total 2868 2967 1220 540 Output Total 567 3215 004 0305 Balance 2301 1287 410 -475 Meds/Results Medications: Active Medications Generic Name Dose Route Start Last Admin Trade Name Freq PRN Reason Stop Dose Admin Albuterol 2.5 mg 05/20/20 16:07 05/21/20 07:11 Albuterol Sulfate Neb 2.5 Mg/0.5 Ml Inh INHALATION 2.5 mg Q6HRT PRN Administration Shortness Of Breath Amiodarone HCl 100 mg 05/19/20 21:30 05/22/20 08:29 Amiodarone Hcl 100 Mg Tablet PO 100 mg DAILY SAVANNA Administration Apixaban 2.5 mg 05/19/20 21:30 05/22/20 08:29 Apixaban 2.5 Mg Tablet BY MOUTH 2.5 mg BID SAVANNA Administration Benzocaine 1 lozenge 05/20/20 12:21 Benzocaine/Menthol (*Bkc) 18 Ea Lozenge PO PRN PRN Sore Throat Hydralazine HCl 10 mg 05/20/20 09:34 Hydralazine Hcl 20 Mg/Ml Vial IV PUSH Q4H PRN Blood Pressure - High Imipenem/Cilastatin Sodium 250 mg in 100 mls @ 300 mls/hr 05/21/20 06:00 05/22/20 05:32 Primaxin 250 Mg/D5w 100 Ml IVPB Infused Q6HR SAVANNA Infusion Sodium Chloride 10 ml 05/20/20 14:00 05/22/20 05:12 Centr
--- NOTE | 2020-05-22 11:30 | PM.PNGS ---
Progress Note: A&P Assessment and Plan (1) Septic shock: Onset Date: ~05/18/20 Code(s): A41.9 - Sepsis, unspecified organism; R65.21 - Severe sepsis with septic shock Status: Resolved Assessment and Plan: elevated white count felt to be due to maturation of immature leukocytes as patient was neutropenic at initial presentation. I would not be concerned about the elevated white count. It is trending down. All other aspects ever care suggest sepsis has resolved. (2) Acute cholecystitis: Onset Date: ~05/15/20 Code(s): K81.0 - Acute cholecystitis Status: Acute Assessment and Plan: Cholecystostomy tube in place. No evidence of acute cholecystitis at present. Will get cholangiogram today to assess cystic duct patency. If cystic duct is patent, will probably clamp cholecystostomy tube. 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 (5) Left arm swelling: Code(s): M79.89 - Other specified soft tissue disorders Status: Acute Assessment and Plan: ultrasound negative for DVT (6) Acute renal failure: Qualifiers: Acute renal failure type: unspecified Qualified Code(s): N17.9 - Acute kidney failure, unspecified Code(s): N17.9 - Acute kidney failure, unspecified Status: Acute Assessment and Plan: much improved, creatinine down to 1.2 today. Consequence of septic shock and severe acute cholecystitis with gram-negative bacteremia. Subjective Subjective Date/Time Seen: 05/22/20 11:30 Patient reports: no new complaints, feels better, tolerating a regular diet and afebrile Review of Systems Review of Systems: All systems reviewed & are unremarkable except as noted in HPI and below Constitutional: Constitutional: Denies anorexia, Denies chills, Denies fever(s) and Denies headache(s) Cardiovascular: Cardiovascular: Denies chest pain and Denies dyspnea Respiratory: Respiratory: Denies cough and Denies dyspnea Gastrointestinal: Gastrointestinal: Reports as per HPI, Denies abdominal pain, Reports constipation, Denies nausea and Denies vomiting Exam Const: General: comfortable and no acute distress; No confusion Orientation/consciousness: No confusion Limitations: physical limitations (Trouble walking, trouble getting out of bed) Resp: Effort & Inspection: normal respiratory effort Auscultation: clear to auscultation bilaterally Cardio: Jugular venous distension: no JVD Rate: regular rate Rhythm: regular rhythm and abnormal rhythm irregularly irregular Heart sounds: no murmurs and no rubs GI: Inspection: non-distended and other ( small amount biliary drainage per cholecystostomy tube, about 60 cc daily) GI Palp: Yes Soft to palpation, No Tenderness to palpation present (GI), No Guarding due to palpation present (GI) and No Rebound tenderness present Auscultation: normal bowel sounds Neuro: General: patient oriented x3, no focal motor deficits and No confusion Extrem: General: no calf tenderness and no edema Psych: Affect: normal affect Insight: Good insight present (Psych) Judgement: Good judgement present (Psych) Objective Data Vital Signs Vital Signs: Vital Signs - 24 hr 05/21/20 14:00 05/21/20 20:50 05/21/20 21:59 Temperature 36.2 C L 36.0 C L Pulse Rate 68 69 Respiratory Rate 16 20 Blood Pressure 146/83 H 155/77 H Pulse Oximetry 96 95 95 05/22/20 05:29 05/22/20 08:29 05/22/20 09:53 Temperature 36.4 C Pulse Rate 75 64 Respiratory Rate 18 Blood Pressure 143/79 H Pulse Oximetry 93 94 Intake/Output Intake/Output: Intake & Output 05/19/20 05/20/20 05/21/20 05/22/20 23:59
--- NOTE | 2020-05-22 12:11 | PCOTNOTE ---
Practitioner attempted multiple times to have patient participate in therapy session, but patient was gone each time for procedure and/or testing. Will attempt therapy at a later date.
[2020-05-22] MEDS: ALBUTEROL SULFATE NEB 2.5 MG/0.5 ML INH INHALATION (17:23)
--- NOTE | 2020-05-23 03:11 | PC.NURSE ---
Daylight Savings Time For Daylight Savings Time Ending in the Fall - Clocks are moved back. For Daylight Savings Time Beginning in the Spring - Clocks are moved ahead. For [facility], the time of change occurs at 0200 hrs. Time is taken from the summons server. This entry on the patient's chart recognizes the change in time reflected during documentation. Example: 2 entries for vital signs may be charted for 0200 hrs.
[2020-05-23] MEDS: CENTRAL LINE FLUSH 10 ML IV PUSH ×3 (05:31→21:21)
[2020-05-23 05:36] LABS: Basophils Absolute Auto 0.1 K/mm3 (0.0-0.1); Basophils Percent Auto 0.4 % (0.2-1.2); Eosinophils Absolute Auto 0.3 K/mm3 (0-0.3); Eosinophils Percent Auto 2.6 % (0-4.4); Hematocrit 33.3 % (37.0-47.0); Hemoglobin 11.1 g/dL (12.0-15.0); Immature Granulocyte Absolute 0.78 K/mm3 (0.00-0.031); Immature Granulocyte Percent A 6.2 % (0-0.5); Lymphocytes Absolute Auto 2.14 K/mm3 (0.9-3.2); Mean Corpuscular HGB Conc 33.3 g/dl (32-36); Mean Platelet Volume 11.3 fl (7.4-10.4); Monocytes Absolute Auto 1.6 K/mm3 (0.1-0.6); Monocytes Percent Auto 12.5 % (2.6-8.5); Neutrophils Absolute Auto 7.7 K/mm3 (1.3-6.7); Neutrophils Percent Auto 61.3 % (45.5-73.1); Platelet Count Result 139 k/mm3 (150-375); Red Blood Count 3.47 M/mm3 (4.2-5.4); White Blood Count 12.6 K/mm3 (4.5-10.0)
[2020-05-23 06:00] VITALS: BP 160/78; PULSE 69; RESP 20; TEMP 36.1; O2SAT 95
[2020-05-23 06:38] LABS: Albumin Level 2.3 g/dL (3.5-5.1); Anion Gap 0 mmol/L (8-16); Blood Urea Nitrogen 24 mg/dL (7-17); Calcium 7.8 mg/dL (8.4-10.2); Carbon Dioxide 31 mmol/L (22-30); Chloride 104 mmol/L (98-107); Estimated CRCL calculation 37 ml/min; Estimated Glomerular Filt Rate 53; Glucose 96 mg/dL (65-105); Phosphorus 4.3 mg/dL (2.5-4.5); Potassium 3.9 mmol/L (3.4-5.0); Sodium 135 mmol/L (137-145)
[2020-05-23 08:00] VITALS: PULSE 78
[2020-05-23] MEDS: APIXABAN 2.5 MG TABLET BY MOUTH ×2 (08:00→17:18)
[2020-05-23] MEDS: AMIODARONE HCL 100 MG TABLET PO (08:00)
--- NOTE | 2020-05-23 12:12 | PM.PNGS ---
Progress Note: A&P Assessment and Plan (1) Acute cholecystitis: Onset Date: ~05/15/20 Code(s): K81.0 - Acute cholecystitis Status: Acute Assessment and Plan: cholecystitis resolving well with cholecystostomy tube placement. Cholangiogram done yesterday showed cystic duct is not widely patent but narrowed. Also suggested some small amounts of extravasation from gallbladder. Will need to discharge patient with cholecystostomy tube to gravity. Fortunately, it is not draining very much. Usually 60-70 cc per day drains. Explained this to patient and her daughter. She has still not had a bowel movement since surgery. I will get obstructive series. She may be constipated. Continue IV Primaxin. White count down to 12,600 today as expected. 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 Slowly improving. (5) Acute renal failure: Qualifiers: Acute renal failure type: unspecified Qualified Code(s): N17.9 - Acute kidney failure, unspecified Code(s): N17.9 - Acute kidney failure, unspecified Status: Resolved Assessment and Plan: Creatinine down to 1.0 today. Will DC Ortiz catheter. Subjective Subjective Date/Time Seen: 05/23/20 12:12 Post Op day: 4 (Status post cholecystostomy tube placement) Patient reports: no new complaints, feels better, pain is less, no bowel movement and afebrile Interval history: no new complaints or problems. Eating and likes the food but does not have much appetite yet. Walking better with therapy and a walker. Wants Ortiz catheter out. Review of Systems Review of Systems: All systems reviewed & are unremarkable except as noted in HPI and below Constitutional: Constitutional: Denies anorexia, Denies body ache(s), Denies chills, Reports fatigue, Denies fever(s), Denies headache(s), Reports lethargy and Reports weakness Cardiovascular: Cardiovascular: Denies chest pain and Denies dyspnea Respiratory: Respiratory: Denies cough and Denies dyspnea Gastrointestinal: Gastrointestinal: Reports as per HPI, Reports constipation, Denies GI cramping, Reports early satiety, Denies nausea and Denies vomiting Neurologic: Denies confusion and Denies headache(s) Exam Const: General: comfortable and no acute distress; No confusion Orientation/consciousness: patient oriented x3 and No confusion GI: Inspection: normal to inspection, non-distended and other ( 75 cc per cholecystostomy tube yesterday) GI Palp: Yes Soft to palpation, Yes Tenderness to palpation present (GI) ( At cholecystostomy tube site only), No Guarding due to palpation present (GI), No Palpable mass present and No Rebound tenderness present Auscultation: normal bowel sounds Neuro: General: patient oriented x3, no focal motor deficits and No confusion Extrem: General: no calf tenderness and no edema Psych: Affect: normal affect Insight: Good insight present (Psych) Judgement: Good judgement present (Psych) Objective Data Vital Signs Vital Signs: Vital Signs - 24 hr 05/22/20 14:00 05/22/20 17:25 05/22/20 17:31 Temperature 36.4 C Pulse Rate 90 90 91 Respiratory Rate 18 18 18 Blood Pressure 148/69 H Pulse Oximetry 96 05/22/20 21:07 05/23/20 06:00 05/23/20 08:00 Temperature 36.0 C L 36.1 C L Pulse Rate 86 69 78 Respiratory Rate 20 20 Blood Pressure 151/79 H 160/78 H Pulse Oximetry 95 95 Intake/Output Intake/Output: Intake & Output 05/20/20 05/21/20
--- NOTE | 2020-05-23 12:49 | PM.PNNEP ---
Progress Note: A&P Assessment and Plan (1) Acute renal failure: Qualifiers: Acute renal failure type: unspecified Qualified Code(s): N17.9 - Acute kidney failure, unspecified Code(s): N17.9 - Acute kidney failure, unspecified Status: Resolved Assessment and Plan: improving/resolving due to multifactorial ATN: - hemodynamic instability/hypotension/shock - infection (cholecystitis) - pre-renal factors - LIZZY-I use prior to admission renal ultrasound without obstruction urine electrolytes c/w pre-renal azotemia follow trend of repeat labs and UOP with interventions date (2) Septic shock: Onset Date: ~05/18/20 Code(s): A41.9 - Sepsis, unspecified organism; R65.21 - Severe sepsis with septic shock Status: Resolved Assessment and Plan: due to #3 remains hemodynamically stable at this time culture data noted: - blood cultures with E. coli and Enterococcus - bile cultures with E. coli and Clostridium perfringes on IV antibiotics continue supportive therapy (3) Acute cholecystitis: Onset Date: ~05/15/20 Code(s): K81.0 - Acute cholecystitis Status: Acute Assessment and Plan: as noted by imaging studies to date General Surgery following s/p cholecystostomy tube placement by IR on antibiotics (4) Paroxysmal atrial fibrillation: Code(s): I48.0 - Paroxysmal atrial fibrillation Status: Chronic Assessment and Plan: on amiodarone restarted on eliquis for anticoagulation rate controlled Not much to else to add -- will continue to follow from a distance. Subjective Date/time seen: 05/23/20 12:49 Appears to be doing reasonably well; no nausea, vomiting or abdominal pain voiced; major complaint is that of fatigue and no appetite; no other reported issues/events overnight or earlier this AM; no apparent distress to report at the time or my visit. Exam Narrative: Exam Narrative: General: Elderly female in NAD Heart: normal S1 and S2; no rub Lungs: clear to auscultation Abdomen: soft, nontender, nondistended, positive bowel sounds Extremities: no cyanosis or clubbing; no edema Skin: warm and dry Objective Data Vital Signs Vital Signs: Vital Signs Temp Pulse Resp BP Pulse Ox 05/23/20 08:00 78 05/23/20 06:00 36.1 C L 69 20 160/78 H 95 05/22/20 21:07 36.0 C L 86 20 151/79 H 95 05/22/20 17:31 91 18 05/22/20 17:25 90 18 05/22/20 14:00 36.4 C 90 18 148/69 H 96 Intake/Output Intake/Output: Intake & Output 05/20/20 05/21/20 05/22/20 05/24/20 23:59 23:59 23:59 00:59 Intake Total 2967 1220 1470 990 Output Total 9258 071 2141 770 Balance 1287 410 -705 220 Meds/Results Medications: Active Medications Generic Name Dose Route Start Last Admin Trade Name Freq PRN Reason Stop Dose Admin Albuterol 2.5 mg 05/20/20 16:07 05/22/20 17:23 Albuterol Sulfate Neb 2.5 Mg/0.5 Ml Inh INHALATION 2.5 mg Q6HRT PRN Administration Shortness Of Breath Amiodarone HCl 100 mg 05/19/20 21:30 05/23/20 08:00 Amiodarone Hcl 100 Mg Tablet PO 100 mg DAILY SAVANNA Administration Apixaban 2.5 mg 05/19/20 21:30 05/23/20 08:00 Apixaban 2.5 Mg Tablet BY MOUTH 2.5 mg BID SAVANNA Administration Benzocaine 1 lozenge 05/20/20 12:21 Benzocaine/Menthol (*Bkc) 18 Ea Lozenge PO PRN PRN Sore Throat Hydralazine HCl 10 mg 05/20/20 09:34 Hydralazine Hcl 20 Mg/Ml Vial IV PUSH Q4H PRN Blood Pressure - High Imipenem/Cilastatin Sodium 250 mg in 100 mls @ 300 mls/hr 05/21/20 06:00 05/23/20 11:21 Primaxin 250 Mg/D5w 100 Ml IVPB 300 mls/hr Q6HR SAVANNA Administration Sodium Chloride 10 ml 05/20/20 14:00 05/23/20 05:31 Central Line Flush IV PUSH 10 ml Q8HR SAVANNA Administration Sodium Chloride 20 ml 05/20/20 10:35
--- NOTE | 2020-05-23 13:44 | PM.IMPN ---
Progress Note: A&P Assessment and Plan (1) Septic shock: Onset Date: ~05/18/20 Code(s): A41.9 - Sepsis, unspecified organism; R65.21 - Severe sepsis with septic shock Status: Resolved Assessment and Plan: Pt had percutaneous cholecystostomy by IR, draining bile, surgery to manage to percutaneous drain continue iv primaxin, cultures are back and are reviewed, wcc still high, surgery rounding, hopeful dc in 1-2days time (2) Acute cholecystitis: Onset Date: ~05/15/20 Code(s): K81.0 - Acute cholecystitis Status: Acute Assessment and Plan: Patient with acute cholecystitis with percutaneous tube in situ (3) Acute renal failure: Qualifiers: Acute renal failure type: unspecified Qualified Code(s): N17.9 - Acute kidney failure, unspecified Code(s): N17.9 - Acute kidney failure, unspecified Status: Resolved Assessment and Plan: Secondary to septic shock with hypovolemia and hypoperfusion from hypotension. creat is 1.2, nephrology rounding (4) Atrial fibrillation with rapid ventricular response: Onset Date: Unknown Code(s): I48.91 - Unspecified atrial fibrillation Status: Acute Assessment and Plan: Patient was in atrial fibrillation/tachycardia with RVR on arrival to the emergency department but is now in a sinus rhythm. 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: Code(s): Z79.01 - termite inspector (current) use of anticoagulants Status: Chronic Assessment and Plan: Apixaban for AF (7) Atelectasis: Code(s): J98.11 - Atelectasis Status: Acute Assessment and Plan: Incentive spirometry, PT , breathing treatments (8) Left arm swelling: Code(s): M79.89 - Other specified soft tissue disorders Status: Acute Assessment and Plan: Venous Doppler ordered for both arms Subjective Date/time seen: 05/23/20 13:44 Interval history: 85-year-old female with history of stroke, paroxysmal atrial fibrillation, hyperlipidemia, and hypertension who presented to the emergency department earlier today via EMS from home with complaints of generalized weakness and shortness of breath. Pt is in ICU seen BY ICU MD and surgery team. Pt admitted with cholecystitis, ARF,septic shock and Af. Pt had percutaneous cholecystostomy by IR, draining bile, surgery to manage to percutaneous drain. 05/23: Denied pain. Admits to fatigue and anorexia. No n/v. Bowels move daily. Review of Systems Review of Systems: All systems reviewed & are unremarkable except as noted in HPI and below Exam Narrative: Exam Narrative: General: Elderly female supine in bed. HEENT: PERRL, EOMI. Sclerae anicteric. Tacky mucous membranes. Neck: Supple. No JVD although exam difficult due to patient positioning. Respiratory: Mild tachypnea. She is speaking in full sentences. Lungs are clear to auscultation. Cardiovascular: Tachycardic with variable S1. Pacemaker in the right anterior chest. Gastrointestinal: Abdomen is soft and mildly distended with active bowel sounds. Mild tenderness around her drain. Skin: Warm and dry. Extremities: No cyanosis, clubbing, or edema. Neurological: Alert. Cranial nerves 2-12 are grossly intact. Psychiatric: Appropriate mood and affect. Objective Data Vital Signs Vital Signs: Vital Signs - 24 hr 05/22/20 14:00 05/22/20 17:25 05/22/20 17:31 Temperature 97.6 F Pulse Rate 90 90 91 Respiratory Rate 18 18 18 Blood Pressure 148/69 H Pulse Oximetry 96 05/22/20 21:07 05/23/20 06:00 05/23/20 08:00 Temperature 96.8 F L 97.0 F L Pulse Rate 86 69 78 Respiratory Rate 20 20 Blood Pressure 151/79 H 160/78 H Pulse Oximetry 95 95 Intake/Output Intake/Output: Intake & Output
[2020-05-23 14:00] VITALS: BP 130/59; PULSE 72; RESP 16; TEMP 35.9; O2SAT 99
[2020-05-23 16:38] LABS: Chloride Rand Ur <20 mmol/L (32-290); Creatinine Random Urine 116 mg/dL (20-275)
[2020-05-23 21:50] VITALS: BP 144/69; PULSE 96; RESP 18; TEMP 36; O2SAT 98
[2020-05-24 06:00] VITALS: BP 158/87; PULSE 75; RESP 18; TEMP 36.1; O2SAT 100
[2020-05-24] MEDS: CENTRAL LINE FLUSH 10 ML IV PUSH ×3 (06:31→20:39)
[2020-05-24 08:53] VITALS: PULSE 76
[2020-05-24] MEDS: AMIODARONE HCL 100 MG TABLET PO (08:53)
[2020-05-24] MEDS: APIXABAN 2.5 MG TABLET BY MOUTH ×2 (08:54→18:14)
[2020-05-24 08:55] LABS: Hematocrit 36.7 % (37.0-47.0); Hemoglobin 12.4 g/dL (12.0-15.0); Mean Corpuscular HGB Conc 33.8 g/dl (32-36); Mean Corpuscular Hemoglobin 32.3 pg (26-34); Mean Corpuscular Volume 95.6 fl (80-100); Mean Platelet Volume 10.9 fl (7.4-10.4); Platelet Count Result 198 k/mm3 (150-375); Red Blood Count 3.84 M/mm3 (4.2-5.4); Red Cell Distribution Width 13.9 % (11.5-14.5)
[2020-05-24 09:07] LABS: Potassium 4.3 mmol/L (3.4-5.0)
[2020-05-24 09:11] LABS: Alanine Aminotransferase 19 U/L (4-35); Alkaline Phosphatase 65 U/L (38-126); Anion Gap 3 mmol/L (8-16); Aspartate Amino Transferase 21 U/L (14-36); Bilirubin,Total 1.5 mg/dL (0.2-1.3); Blood Urea Nitrogen 20 mg/dL (7-17); Calcium 8.5 mg/dL (8.4-10.2); Carbon Dioxide 30 mmol/L (22-30); Chloride 102 mmol/L (98-107); Estimated CRCL calculation 40 ml/min; Estimated Glomerular Filt Rate 60; Glucose 109 mg/dL (65-105); Magnesium 1.7 mg/dL (1.6-2.3); Sodium 135 mmol/L (137-145)
[2020-05-24 09:21] VITALS: PULSE 70; RESP 16; O2SAT 94
--- NOTE | 2020-05-24 11:35 | PM.PNGS ---
Progress Note: A&P Assessment and Plan (1) Acute cholecystitis: Onset Date: ~05/15/20 Code(s): K81.0 - Acute cholecystitis Status: Acute Assessment and Plan: continues to improve. Patient will need to empty cholecystostomy tube and record output daily after discharge from the hospital. She will need to follow up with Dr. Holder about 2 weeks after discharge. She can return to a regular diet rather than continuing the low-fat diet. Dr. Holder will discuss possible laparoscopic cholecystectomy versus removal of cholecystostomy tube and monitoring in the office after discharge. Patient had positive blood cultures for E coli and Enterococcus faecalis. Continue IV antibiotics until hospitalist feels they are no longer needed. Does not need to go home on oral antibiotics from surgical standpoint. (2) Paroxysmal atrial fibrillation: Code(s): I48.0 - Paroxysmal atrial fibrillation Status: Chronic Assessment and Plan: Rate controlled. 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 Ambulation improving Subjective Subjective Date/Time Seen: 05/24/20 11:35 Post Op day: 5 ( Status post percutaneous cholecystostomy tube placement) Patient reports: no new complaints, feels better, pain is less ( No abdominal pain), tolerating a regular diet ( eating but appetite is still not normal) and voiding w/o difficulty ( up to the bathroom multiple times last night to urinate. Has been doing a lot more walking.) Review of Systems Review of Systems: All systems reviewed & are unremarkable except as noted in HPI and below Constitutional: Constitutional: Denies headache(s) Cardiovascular: Cardiovascular: Denies chest pain and Denies dyspnea Respiratory: Respiratory: Denies cough and Denies dyspnea Gastrointestinal: Gastrointestinal: Reports as per HPI Neurologic: Denies confusion and Denies headache(s) Exam Const: General: comfortable and no acute distress; No confusion Orientation/consciousness: patient oriented x3 and No confusion GI: Inspection: other ( only 50 cc per cholecystostomy tube yesterday) GI Palp: Yes Soft to palpation, Yes Tenderness to palpation present (GI), No Guarding due to palpation present (GI) and No Rebound tenderness present Auscultation: normal bowel sounds Neuro: General: patient oriented x3, no focal motor deficits and No confusion Extrem: General: no calf tenderness and no edema Psych: Affect: normal affect Insight: Good insight present (Psych) Judgement: Good judgement present (Psych) Objective Data Vital Signs Vital Signs: Vital Signs - 24 hr 05/23/20 14:00 05/23/20 21:50 05/24/20 06:00 Temperature 35.9 C L 36.0 C L 36.1 C L Pulse Rate 72 96 75 Respiratory Rate 16 18 18 Blood Pressure 130/59 L 144/69 H 158/87 H Pulse Oximetry 99 98 100 05/24/20 08:53 05/24/20 09:21 Temperature Pulse Rate 76 70 Respiratory Rate 16 Blood Pressure Pulse Oximetry 94 Intake/Output Intake/Output: Intake & Output 05/21/20 05/22/20 05/23/20 05/24/20 22:59 22:59 23:59 23:59 Intake Total 400 Output Total 675 Balance -275 Meds/Results Medications: Active Medications Generic Name Dose Route Start Last Admin Trade Name Freq PRN Reason Stop Dose Admin Albuterol 2.5 mg 05/20/20 16:07 05/22/20 17:23 Albuterol Sulfate Neb 2.5 Mg/0.5 Ml Inh INHALATION 2.5 mg Q6HRT PRN Administration Shortness Of Breath Amiodarone HCl 100 mg 05/19/20 21:30 05/24/20 08:53 Amiodarone Hcl 100 Mg Tablet PO 100 mg DAILY SAVANNA Administration Apixaban 2.5 mg 05/19/20 21:30 05/24/20 08:54 Api
--- NOTE | 2020-05-24 13:31 | PM.IMPN ---
Progress Note: A&P Assessment and Plan (1) Septic shock: Onset Date: ~05/18/20 Code(s): A41.9 - Sepsis, unspecified organism; R65.21 - Severe sepsis with septic shock Status: Resolved Assessment and Plan: Pt had percutaneous cholecystostomy by IR, draining bile, surgery to manage to percutaneous drain continue iv primaxin, cultures are back and are reviewed, ecoli sepsis, Wcc still high, Continue iv Primaxin until WCC normalizes no need for oral ABX on discharge. Hopeful dc in 1-2 days, surgery team rounding. Pt for cholecystectomy soon. (2) Acute cholecystitis: Onset Date: ~05/15/20 Code(s): K81.0 - Acute cholecystitis Status: Acute Assessment and Plan: Patient with acute cholecystitis with percutaneous tube in situ pt noelle have cholecystectomy later. (3) Acute renal failure: Qualifiers: Acute renal failure type: unspecified Qualified Code(s): N17.9 - Acute kidney failure, unspecified Code(s): N17.9 - Acute kidney failure, unspecified Status: Resolved Assessment and Plan: Secondary to septic shock with hypovolemia and hypoperfusion from hypotension. creat is 0.9. nephrology was rounding. (4) Atrial fibrillation with rapid ventricular response: Onset Date: Unknown Code(s): I48.91 - Unspecified atrial fibrillation Status: Acute Assessment and Plan: Patient was in atrial fibrillation/tachycardia with RVR on arrival to the emergency department but is now in a sinus rhythm. (5) Paroxysmal atrial fibrillation: Code(s): I48.0 - Paroxysmal atrial fibrillation Status: Chronic Assessment and Plan: Plan is as above (6) Current use of roasterman anticoagulation: Code(s): Z79.01 - MCFP (current) use of anticoagulants Status: Chronic Assessment and Plan: Apixaban for AF (7) Atelectasis: Code(s): J98.11 - Atelectasis Status: Resolved Assessment and Plan: Lungs are clear now. (8) Left arm swelling: Code(s): M79.89 - Other specified soft tissue disorders Status: Resolved Assessment and Plan: Venous Doppler was negative ? swelling from iv infiltration. Subjective Date/time seen: 05/24/20 13:31 Interval history: 85-year-old female with history of stroke, paroxysmal atrial fibrillation, hyperlipidemia, and hypertension who presented to the emergency department earlier today via EMS from home with complaints of generalized weakness and shortness of breath. Pt is in ICU seen BY ICU MD and surgery team. Pt admitted with cholecystitis, ARF,septic shock and Af. Pt had percutaneous cholecystostomy by IR, draining bile, surgery to manage to percutaneous drain. Cultures are back, pt to continue on primaxin for now. Continue iv Primaxin until WCC normalizes. Review of Systems Review of Systems: All systems reviewed & are unremarkable except as noted in HPI and below Exam Const: General: tired appearing and other (elderly ); No in distress Nutritional Appearance: overweight Orientation/consciousness: oriented to person HENMT: Head: normal to inspection Resp: Effort & Inspection: no respiratory distress Auscultation: clear to auscultation bilaterally Cardio: Rate: regular rate Rhythm: regular rhythm GI: Inspection: normal to inspection and other (pt has percutaneus drain insitu with some drainage ) Auscultation: normal bowel sounds Neuro: General: oriented to person Objective Data Vital Signs Vital Signs: Vital Signs - 24 hr 05/23/20 14:00 05/23/20 21:50 05/24/20 06:00 Temperature 35.9 C L 36.0 C L 36.1 C L Pulse Rate 72 96 75 Respiratory Rate 16 18 18 Blood Pressure 130/59 L 144/69 H 158/87 H Pulse Oximetry 99 98 100 05/24/20 08:53 05/24/20 09:21 Temperature Pulse Rate 76 70 Respiratory Rate 16 Blood Pressure Pulse Oximetry 94 Intake/Output Intake/Output: Intake & Output 05/21/20 03
[2020-05-24 14:00] VITALS: BP 143/66; PULSE 73; RESP 16; TEMP 36.5; O2SAT 100
[2020-05-24 22:00] VITALS: BP 145/67; PULSE 71; RESP 18; TEMP 36.1; O2SAT 97
[2020-05-25] MEDS: CENTRAL LINE FLUSH 10 ML IV PUSH ×2 (05:38→20:52)
[2020-05-25 06:00] VITALS: BP 142/60; PULSE 65; RESP 18; TEMP 36.2; O2SAT 96
[2020-05-25 06:09] LABS: Hematocrit 33.1 % (37.0-47.0); Hemoglobin 11.1 g/dL (12.0-15.0); Mean Corpuscular HGB Conc 33.5 g/dl (32-36); Mean Corpuscular Hemoglobin 32.1 pg (26-34); Mean Corpuscular Volume 95.7 fl (80-100); Mean Platelet Volume 10.7 fl (7.4-10.4); Platelet Count Result 216 k/mm3 (150-375); Red Blood Count 3.46 M/mm3 (4.2-5.4); Red Cell Distribution Width 13.8 % (11.5-14.5); White Blood Count 10.8 K/mm3 (4.5-10.0)
[2020-05-25 06:20] LABS: Alanine Aminotransferase 16 U/L (4-35); Albumin Level 2.7 g/dL (3.5-5.1); Alkaline Phosphatase 59 U/L (38-126); Anion Gap 1 mmol/L (8-16); Aspartate Amino Transferase 19 U/L (14-36); Bilirubin,Total 1.4 mg/dL (0.2-1.3); Blood Urea Nitrogen 18 mg/dL (7-17); Calcium 8.6 mg/dL (8.4-10.2); Carbon Dioxide 31 mmol/L (22-30); Chloride 103 mmol/L (98-107); Estimated CRCL calculation 37 ml/min; Estimated Glomerular Filt Rate 53; Glucose 96 mg/dL (65-105); Potassium 3.9 mmol/L (3.4-5.0); Sodium 135 mmol/L (137-145)
[2020-05-25 08:45] VITALS: PULSE 76
[2020-05-25] MEDS: AMIODARONE HCL 100 MG TABLET PO (08:45)
[2020-05-25] MEDS: APIXABAN 2.5 MG TABLET BY MOUTH ×2 (08:45→17:38)
--- NOTE | 2020-05-25 10:56 | PCOTNOTE ---
Attempted OT treatment, patient reports in 10/10 pain and does not want to get out of bed at this time. will follow and attempt at later time, RN notified and aware of pain.
--- NOTE | 2020-05-25 10:57 | PM.IMPN ---
Progress Note: A&P Assessment and Plan (1) Septic shock: Onset Date: ~05/18/20 Code(s): A41.9 - Sepsis, unspecified organism; R65.21 - Severe sepsis with septic shock Status: Resolved Assessment and Plan: Patient presented with septic shock requiring ICU admission and treatment with Levophed. Related to her bacteremia from her acute cholecystitis. Started on IV antibiotics. Blood pressure improved and able to be weaned off of Levophed. Pt had percutaneous cholecystostomy by IR 05/19/2020. Blood cultures from 05/18 growing E coli and Enterococcus faecalis (bottle 1) and E coli (bottle 2). Wound culture growing EColi and Clostridium perfringens. Treated with Primaxin. WBC trending down. No fevers. More pain today. Add Vancomycin. ID consult. Repeat BCx. (2) Acute cholecystitis: Onset Date: ~05/15/20 Code(s): K81.0 - Acute cholecystitis Status: Acute Assessment and Plan: Patient with acute cholecystitis status post percutaneous cholecystectomy tube placement 05/19/2020. Cholangiogram performed 05/22/2020 showing stenosis of the cystic duct with eventual passage of a small volume of contrast to the common duct and perforation of the neck of the gallbladder. General surgery following. Cholecystectomy planned for later. Check CT scan given her more pain and perforation to assess for abscess. (3) Acute renal failure: Qualifiers: Acute renal failure type: unspecified Qualified Code(s): N17.9 - Acute kidney failure, unspecified Code(s): N17.9 - Acute kidney failure, unspecified Status: Resolved Assessment and Plan: Secondary to septic shock with hypovolemia and hypoperfusion from hypotension. Creatinine was 2.5 but now down to 1.0. Continue to follow. (4) Atrial fibrillation with rapid ventricular response: Onset Date: Unknown Code(s): I48.91 - Unspecified atrial fibrillation Status: Acute Assessment and Plan: Patient with history of paroxysmal atrial fibrillation. Patient presents with atrial fibrillation/tachycardia with RVR on arrival to the ED. Patient converted to normal sinus rhythm. Continue oral amiodarone. Continue Eliquis. (5) Left arm swelling: Code(s): M79.89 - Other specified soft tissue disorders Status: Resolved Assessment and Plan: Bilateral upper extremity venous Doppler negative for DVT. Possibly from iv infiltration. Continue to monitor. (6) DVT prophylaxis: Code(s): Z29.9 - Encounter for prophylactic measures, unspecified Status: Acute Assessment and Plan: Blake Mariscal Date/time seen: 05/25/20 10:57 Interval history: 85yo female with history of stroke, paroxysmal atrial fibrillation and hypertension who presented to the emergency department from home with complaints of generalized weakness and shortness of breath. Pt admitted to ICU for acute cholecystitis, ARF,septic shock and AFib. Pt had percutaneous cholecystostomy placed 05/19 by IR. Assuming care. Chart reviewed. Patient complains of frequency and voiding small volumes. She denies lower abdominal pain. Denies chest pain. No fever, chills or night sweats. No flatus or bowel movement over the past 24 hours. She is having more pain in the right upper quadrant today around the cholecystostomy tube. Exam Narrative: Exam Narrative: AF 97.1 142/60 65 18 96% ra Gen - NARD but appears uncomfortable Chest -mild left basilar inspiratory crackles otherwise clear. Normal respiratory rate CV - RRR S1/S2 Abd -soft. Nondistended. Positive bowel sounds. No suprapubic tenderness. No fullness to suggest bladder distention. Right upper quadrant cholecystostomy tube with scant amount of bilious drainage in the bag. Dressing is clean and dry. Pain palpation in the right upper quadrant appears mild. Ext - No pedal edema. 2+ DP pulses Psych - Nml mood and affect Skin - Warm and
[2020-05-25] MEDS: ACETAMINOPHEN 325 MG TABLET 650 MG PO (11:01)
--- NOTE | 2020-05-25 11:13 | PCPTNOTE ---
Patient refused this AM secondary to increased pain, RN aware.
--- NOTE | 2020-05-25 13:43 | WPDINFPN2 ---
Progress Note: A&P Assessment and Plan (1) Acute cholecystitis: Onset Date: ~05/15/20 Code(s): K81.0 - Acute cholecystitis Status: Acute Assessment and Plan: polymicrobial bacteremia GB source REC Imipenem through AM 06/01, no oral thereafter Subjective Date/time seen: 05/25/20 13:43 Objective Data Vital Signs Vital Signs: Vital Signs - 24 hr 05/24/20 14:00 05/24/20 22:00 05/25/20 06:00 Temperature 36.5 C 36.1 C L 36.2 C L Pulse Rate 73 71 65 Respiratory Rate 16 18 18 Blood Pressure 143/66 H 145/67 H 142/60 H Pulse Oximetry 100 97 96 05/25/20 08:45 Temperature Pulse Rate 76 Respiratory Rate Blood Pressure Pulse Oximetry Intake/Output Intake/Output: Intake & Output 05/22/20 05/23/20 05/24/20 05/25/20 22:59 23:59 23:59 23:59 Intake Total 1640 1520 Output Total 1415 1300 Balance 225 220 Meds/Results Medications: Active Medications Generic Name Dose Route Start Last Admin Trade Name Freq PRN Reason Stop Dose Admin Acetaminophen 650 mg 05/25/20 10:47 05/25/20 11:01 Acetaminophen 325 Mg Tablet PO 650 mg Q6H PRN Administration Mild Pain (1-5) Or Fever Albuterol 2.5 mg 05/20/20 16:07 05/22/20 17:23 Albuterol Sulfate Neb 2.5 Mg/0.5 Ml Inh INHALATION 2.5 mg Q6HRT PRN Administration Shortness Of Breath Amiodarone HCl 100 mg 05/19/20 21:30 05/25/20 08:45 Amiodarone Hcl 100 Mg Tablet PO 100 mg DAILY SAVANNA Administration Apixaban 2.5 mg 05/19/20 21:30 05/25/20 08:45 Apixaban 2.5 Mg Tablet BY MOUTH 2.5 mg BID SAVANNA Administration Benzocaine 1 lozenge 05/20/20 12:21 Benzocaine/Menthol (*Bkc) 18 Ea Lozenge PO PRN PRN Sore Throat Hydralazine HCl 10 mg 05/20/20 09:34 Hydralazine Hcl 20 Mg/Ml Vial IV PUSH Q4H PRN Blood Pressure - High Imipenem/Cilastatin Sodium 250 mg in 100 mls @ 300 mls/hr 05/21/20 06:00 05/25/20 06:26 Primaxin 250 Mg/D5w 100 Ml IVPB Infused Q6HR SAVANNA Infusion Vancomycin HCl 1,250 mg in 250 mls @ 200 mls/hr 05/25/20 09:00 05/25/20 08:44 Vancomycin 1,250 Mg/D5w 250 Ml IVPB 200 mls/hr Q36H SAVANNA Administration Sodium Chloride 10 ml 05/20/20 14:00 05/25/20 05:38 Central Line Flush IV PUSH 10 ml Q8HR SAVANNA Administration Sodium Chloride 20 ml 05/20/20 10:35 Central Line Flush IV PUSH PRN PRN after blood draws Radiology Results: ITS Impressions Chest/Abdomen/Pelvis CT 05/18/20 13:27 IMPRESSION: 1. Findings consistent with acute cholecystitis. 2. Indeterminate 6 mm nodule of the right middle lobe. Recommend follow-up CT in 6-12 months. Cholecystostomy 05/19/20 14:27 IMPRESSION: 1. Successful ultrasound-guided cholecystostomy tube placement. 2. 7 mL brown bile was sent for aerobic and anaerobic cultures. 3. The catheter will be managed by Dr. Holder. A catheter cholangiogram may be performed not less than 48 hours after tube placement if clinically indicated to assess cystic duct patency. If cholecystectomy is not eventually performed and the infectious episode has resolved, the tube may be removed over a guidewire, preferably not less than 3 weeks after placement to allow time for a mature catheter tract to form to prevent bile leakage and peritonitis. Renal Ultrasound 05/19/20 14:34 IMPRESSION: Sonographically unremarkable kidneys. Chest X-Ray 05/20/20 13:18 IMPRESSION: 1. Stable airspace opacities at left lung base, consistent with atelectasis versus pneumonia. Venous Doppler Study 05/22/20 11:11 IMPRESSION: 1. No deep venous thrombosis. Cholangiogram 05/22/20 12:35 IMPRESSION: 1. Stenosis of the cystic duct with eventual passage of a small volume of contrast to the common duct. 2. Perforation of the neck of the gallbladder. 3. Cholelithiasis. 4. Cholecystotomy tube in expected position. Labs Labs: Laboratory Results - last 24 hr 05/25/20 05/25/20 05:42 05
--- NOTE | 2020-05-25 13:46 | PCNWS ---
Weekly nutritional screen. Patient is tolerating current diet with adequate intake. Her intake fluctuates between consuming 70-100% of meals but there are times she reports having decreased appetite resulting in less meal consumption. She is receiving Ensure Compact BID providing an additional 220 calories and 9 grams of protein and is enjoying those. No weight loss reported. No nutritional needs at this time.
[2020-05-25 14:00] VITALS: BP 116/48; PULSE 68; RESP 16; TEMP 36.1; O2SAT 94
--- NOTE | 2020-05-25 14:01 | PCNSR ---
On 05/25/20, the student, Flaca Banuelos, provided care and completed [facility] documentation on this patient. I have reviewed the student's documentation and agree with the findings.
--- NOTE | 2020-05-25 17:01 | PC.NURSE ---
Patient continues to c/o right sided abdominal pain - rated 10/10. Called Dr. Brown and notified him of CT results as well as patient's request for something stronger for pain control. He states he will enter orders.
--- NOTE | 2020-05-25 17:57 | CONS_ITS ---
DATE OF CONSULTATION: 05/25/2020 REASON FOR CONSULTATION: Polymicrobial bacteremia. HISTORY OF PRESENT ILLNESS: 85-year-old female who can provide limited history. She recently was admitted to the hospital on May 18 from her home with weakness and shortness of breath. She was found to have hypotension and hypoxemia. Investigation revealed suspicion for acute cholecystitis. She has not had surgery, but has had placement of a cholecystostomy tube. Right IJ triple-lumen catheter has been placed. Her hospital course has been complicated by AF with RVR; renal insufficiency, now resolved; left arm swelling. She has no abdominal pain. Currently no nausea or vomiting. She still feels somewhat weak. ALLERGIES: PENICILLIN CAUSED ITCHING. SULFA CAUSED HIVES. SHE TOLERATES THE CARBAPENEM. HABITS: No tobacco. No alcohol. PRESENT MEDICATIONS: List reviewed. No immunosuppressants. Vancomycin has just been added today. PAST MEDICAL HISTORY: BTL, cataracts, appendectomy, hypertension, hyperlipidemia, coronavirus infection December 2019, stroke 2018, arthritis, otherwise as above. REVIEW OF SYSTEMS: 14-point review otherwise negative. FAMILY HISTORY: Not pertinent to her present illness. SOCIAL HISTORY: She lives locally. 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 She has a daughter who is her POA. EXAM: GENERAL: Elderly female appears her actual age, in no acute distress. VITAL SIGNS: Afebrile since arrival, 142/60, 65, 18, 96% on room air. SKIN: Warm and dry. No ulcerations. EENT: The conjunctivae are normal. Pupils equal and round. The oropharynx, oral mucosa normal. NECK: No masses, thyromegaly or meningismus. LUNGS: Clear to auscultation and percussion. CARDIAC: Regular rate and rhythm. No murmur or gallop. Pulses are 1+. ABDOMEN: Mildly tender in the right upper quadrant. She has a drain in place in the right subcostal region, draining a scant light brown thin fluid. Elsewhere, the abdomen has no tenderness and she has no guarding. No masses. No organomegaly. EXTREMITIES: Without clubbing, cyanosis, edema. Well perfused. LABORATORY DATA: From admission, blood cultures 1/2 sets Enterococcus faecalis which was susceptible and both sets positive for E coli. I reviewed the susceptibilities. Bile culture performed 05/19 with Clostridium perfringens and E coli. Repeat blood cultures just drawn. White count is 10.8, down from 12.6 two days ago. Hemoglobin 11.1, platelets are 216, up from 139, earlier differential with minimal left shift. Her chemistry panel with minimal hyponatremia and CO2 of 31. Bilirubin is 1.4 compared to 1.5. Albumin 2.7. Transaminases normal. RADIOLOGY: Cholangiogram showed bile duct stenosis, perforation of the neck of the gallbladder, gallstones and expected cholecystostomy. CT of the abdomen and pelvis on admission, acute cholecystitis findings as described. ASSESSMENT: 1. Polymicrobial bacteremia with infection, biliary source with acute cholecystitis. Other causes of the bacteremia are unlikely including lower GI, upper GI, pulmonary, primary bloodstream, urine or skin soft tissue. 2. Isolation of clostridium from bile fluid. Also a potential pathogen in this situation. 3. Abnormal cholangiogram as described. 4. Leukocytosis due to the above. 5. Septic shock and heart failure as a result, resolved. RECOMMENDATIONS: 1. Given her allergy listing, imipenem is appropriate. Pharmacy is adjusting for her renal insufficiency, which appears improved. She will need 7 days more of intravenous antibiotics. 2. Surgery following for any needed surgical intervention. 3. No oral antibiotics anticipated after completion of IV. 4. Triple-lumen catheter in place, right IJ for the m
[2020-05-25] MEDS: HYDROcodone/acetaminophen (*CRX) 5-325 MG TABLET 1 TAB PO (18:09)
[2020-05-25 20:00] VITALS: PULSE 68; RESP 16; O2SAT 94
[2020-05-25 22:00] VITALS: BP 134/62; PULSE 67; RESP 18; TEMP 36.6; O2SAT 96
[2020-05-26 05:21] LABS: Hematocrit 32.4 % (37.0-47.0); Hemoglobin 10.8 g/dL (12.0-15.0); Mean Corpuscular HGB Conc 33.3 g/dl (32-36); Mean Corpuscular Hemoglobin 32.3 pg (26-34); Mean Platelet Volume 10.4 fl (7.4-10.4); Platelet Count Result 234 k/mm3 (150-375); Red Blood Count 3.34 M/mm3 (4.2-5.4); Red Cell Distribution Width 13.8 % (11.5-14.5); White Blood Count 9.9 K/mm3 (4.5-10.0)
[2020-05-26 05:35] LABS: Potassium 3.9 mmol/L (3.4-5.0)
[2020-05-26 05:45] LABS: Alanine Aminotransferase 13 U/L (4-35); Albumin Level 2.7 g/dL (3.5-5.1); Alkaline Phosphatase 55 U/L (38-126); Anion Gap 0 mmol/L (8-16); Aspartate Amino Transferase 18 U/L (14-36); Bilirubin,Total 1.5 mg/dL (0.2-1.3); Blood Urea Nitrogen 18 mg/dL (7-17); Calcium 8.2 mg/dL (8.4-10.2); Carbon Dioxide 30 mmol/L (22-30); Chloride 103 mmol/L (98-107); Estimated CRCL calculation 39 ml/min; Estimated Glomerular Filt Rate 60; Glucose 94 mg/dL (65-105); Sodium 133 mmol/L (137-145)
[2020-05-26 06:00] VITALS: BP 131/58; PULSE 66; RESP 20; TEMP 36.6; O2SAT 99
[2020-05-26] MEDS: CENTRAL LINE FLUSH 10 ML IV PUSH ×3 (06:50→20:26)
[2020-05-26 08:00] VITALS: BP 140/63; PULSE 65; RESP 18; TEMP 36.6; O2SAT 96
[2020-05-26] MEDS: HYDROcodone/acetaminophen (*CRX) 5-325 MG TABLET 1 TAB PO ×3 (08:33→22:08)
[2020-05-26 08:37] VITALS: PULSE 65
[2020-05-26] MEDS: AMIODARONE HCL 100 MG TABLET PO (08:37)
[2020-05-26] MEDS: APIXABAN 2.5 MG TABLET BY MOUTH ×2 (08:37→17:39)
--- NOTE | 2020-05-26 10:12 | PM.IMPN ---
Progress Note: A&P Assessment and Plan (1) Septic shock: Onset Date: ~05/18/20 Code(s): A41.9 - Sepsis, unspecified organism; R65.21 - Severe sepsis with septic shock Status: Resolved Assessment and Plan: Patient presented with septic shock requiring ICU admission and treatment with Levophed. Related to her bacteremia from her acute cholecystitis. Started on IV antibiotics. Blood pressure improved and able to be weaned off of Levophed. Pt had percutaneous cholecystostomy by IR 05/19/2020. Blood cultures from 05/18 growing E coli and Enterococcus faecalis (bottle 1) and E coli (bottle 2). Wound culture growing EColi and Clostridium perfringens. Treated with Primaxin. WBC normal now. No fevers. still with the RUQ pain today. ID input appreciated. No Vancomycin needed for the Enteroccocus faecalis; remains on Primaxin through AM 06/01/20. Repeat BCx NGTD. PIC line tomorrow for IV abx at home or SNF. (2) Acute cholecystitis: Onset Date: ~05/15/20 Code(s): K81.0 - Acute cholecystitis Status: Acute Assessment and Plan: Patient with acute cholecystitis status post percutaneous cholecystectomy tube placement 05/19/2020. Cholangiogram performed 05/22/2020 showing stenosis of the cystic duct with eventual passage of a small volume of contrast to the common duct and perforation of the neck of the gallbladder. General surgery following. Cholecystectomy planned for later. Repeat CT scan 05/25 showing improvement in findings; no abscess. Increase in abd pain unclear. Contineu to follow. (3) Acute renal failure: Qualifiers: Acute renal failure type: unspecified Qualified Code(s): N17.9 - Acute kidney failure, unspecified Code(s): N17.9 - Acute kidney failure, unspecified Status: Resolved Assessment and Plan: Secondary to septic shock with hypovolemia and hypoperfusion from hypotension. Creatinine was 2.5 but now down to 0.9. Continue to follow. (4) Atrial fibrillation with rapid ventricular response: Onset Date: Unknown Code(s): I48.91 - Unspecified atrial fibrillation Status: Acute Assessment and Plan: Patient with history of paroxysmal atrial fibrillation. Patient presents with atrial fibrillation/tachycardia with RVR on arrival to the ED. Patient converted to normal sinus rhythm. Continue oral amiodarone. Continue Eliquis. (5) Left arm swelling: Code(s): M79.89 - Other specified soft tissue disorders Status: Resolved Assessment and Plan: Bilateral upper extremity venous Doppler negative for DVT. Possibly from iv infiltration. Continue to monitor. (6) DVT prophylaxis: Code(s): Z29.9 - Encounter for prophylactic measures, unspecified Status: Acute Assessment and Plan: Eliquis Subjective Date/time seen: 05/26/20 10:12 Interval history: 85yo female with history of stroke, pAFib and HTN who presented to the emergency department from home with complaints of generalized weakness and shortness of breath. Pt admitted to ICU for acute cholecystitis, ARF,septic shock and AFib. Pt had percutaneous cholecystostomy placed 05/19 by IR. Funmilayo feels better today. No n/v. Stil with abdominal pain at the drain site described as sharp. Pain medication helping. No CP or SOB. No BM for 2 days. No CP or SOB. Exam Narrative: Exam Narrative: AF 97.8 140/63 65 18 96% ra Gen - NARD Chest - left base inspiratory crackles otherwise clear. Normal respiratory rate CV - RRR S1/S2 Abd -soft. minimal RUQ pain. +BS. RUQ dressing clean/dry/intact with bilious fluid in bag Ext - No pedal edema Psych - pleasant and cooperative Skin - Warm and dry Objective Data Vital Signs Vital Signs: Vital Signs - 24 hr 05/25/20 14:00 05/25/20 20:00 05/25/20 22:00 Temperature 97.0 F L 97.8 F Pulse Rate 68 68 67 Respiratory Rate 16 16 18 Blood Pressure 116/48 L 134/62 Pulse Ox
[2020-05-26] MEDS: BISACODYL 10 MG SUPPOSITORY RECTAL (11:05)
[2020-05-26] MEDS: DOCUSATE SODIUM 100 MG CAPSULE PO ×2 (11:05→20:26)
[2020-05-26 14:22] VITALS: BP 122/53; PULSE 64; RESP 18; TEMP 36.2; O2SAT 96
--- NOTE | 2020-05-26 15:16 | PC.NURSE ---
On 05/26/20, the student, [ Tess Patrick], provided care and completed [facility] documentation on this patient. I have reviewed the student's documentation and agree with the findings.
[2020-05-26 20:00] VITALS: PULSE 64; RESP 18; O2SAT 96
[2020-05-26] MEDS: ATORVASTATIN 40 MG TABLET PO (20:26)
[2020-05-26 22:00] VITALS: BP 136/57; PULSE 71; RESP 18; TEMP 36.4; O2SAT 98
[2020-05-27 00:39] LABS: SARS-CoV-2 RNA PCR Negative
[2020-05-27] MEDS: CENTRAL LINE FLUSH 10 ML IV PUSH (05:48)
[2020-05-27 06:00] VITALS: BP 122/69; PULSE 68; RESP 20; TEMP 36.6; O2SAT 97
[2020-05-27 06:44] LABS: Hematocrit 32.9 % (37.0-47.0); Hemoglobin 10.9 g/dL (12.0-15.0); Mean Corpuscular HGB Conc 33.1 g/dl (32-36); Mean Corpuscular Hemoglobin 32.4 pg (26-34); Mean Corpuscular Volume 97.9 fl (80-100); Mean Platelet Volume 10.8 fl (7.4-10.4); Platelet Count Result 299 k/mm3 (150-375); Red Blood Count 3.36 M/mm3 (4.2-5.4); Red Cell Distribution Width 13.8 % (11.5-14.5); White Blood Count 9.7 K/mm3 (4.5-10.0)
[2020-05-27 07:34] LABS: Alanine Aminotransferase 13 U/L (4-35); Albumin Level 2.7 g/dL (3.5-5.1); Alkaline Phosphatase 61 U/L (38-126); Anion Gap 1 mmol/L (8-16); Aspartate Amino Transferase 21 U/L (14-36); Bilirubin,Total 0.9 mg/dL (0.2-1.3); Blood Urea Nitrogen 21 mg/dL (7-17); Calcium 8.4 mg/dL (8.4-10.2); Carbon Dioxide 30 mmol/L (22-30); Chloride 102 mmol/L (98-107); Estimated CRCL calculation 35 ml/min; Estimated Glomerular Filt Rate 53; Glucose 89 mg/dL (65-105); Potassium 4.2 mmol/L (3.4-5.0); Sodium 133 mmol/L (137-145)
[2020-05-27 08:24] VITALS: PULSE 64
[2020-05-27] MEDS: APIXABAN 2.5 MG TABLET BY MOUTH ×2 (08:24→16:40)
[2020-05-27] MEDS: DOCUSATE SODIUM 100 MG CAPSULE PO (08:24)
[2020-05-27] MEDS: AMIODARONE HCL 100 MG TABLET PO (08:24)
[2020-05-27] MEDS: HYDROcodone/acetaminophen (*CRX) 5-325 MG TABLET 1 TAB PO ×2 (10:22→16:39)
[2020-05-27 10:40] VITALS: BP 140/67; PULSE 63; RESP 16; TEMP 36.7; O2SAT 96
[2020-05-27] MEDS: LIDOCAINE HCL 1% LOCAL INJ 2 ML AMPUL 5 ML INFILTRATE (13:30)
--- NOTE | 2020-05-27 13:56 | PCOTNOTE ---
Attempted to see patient twice this pm. First attempt, patient was having bedside procedure. Second attempt, patient declined, requesting to rest. Pt requested pain medicine and RN was notified.
[2020-05-27 14:56] VITALS: BP 147/65; PULSE 65; RESP 14; TEMP 36.6; O2SAT 98
--- NOTE | 2020-05-27 15:21 | PC.NURSE ---
On 05/27/20, the student, [Christi Polanco ], provided care and completed [facility] documentation on this patient. I have reviewed the student's documentation and agree with the findings.
--- NOTE | 2020-05-27 17:02 | PM.DS ---
DS: Admitting Diagnosis Admitting Diagnosis Admitting Diagnosis: generalized weakness and SOB DS: Discharge Diagnosis Discharge Diagnosis (1) Septic shock: Onset Date: ~05/18/20 Code(s): A41.9 - Sepsis, unspecified organism; R65.21 - Severe sepsis with septic shock Status: Resolved Assessment and Plan: Patient presented with septic shock requiring ICU admission and treatment with Levophed. Related to her bacteremia from her acute cholecystitis. Started on IV antibiotics. Blood pressure improved and able to be weaned off of Levophed. Pt had percutaneous cholecystostomy by IR 05/19/2020. Blood cultures from 05/18 growing E coli and Enterococcus faecalis (bottle 1) and E coli (bottle 2). Wound culture growing EColi and Clostridium perfringens. Treated with Primaxin. WBC was as high as 30K but normal now. No fevers. ID input appreciated. No Vancomycin needed for the Enteroccocus faecalis; remains on Primaxin through AM 06/01/20. Repeat BCx NGTD. Midline placed to complete IV antibiotics. (2) Acute cholecystitis: Onset Date: ~05/15/20 Code(s): K81.0 - Acute cholecystitis Status: Acute Assessment and Plan: Patient with acute cholecystitis status post percutaneous cholecystectomy tube placement 05/19/2020. Cholangiogram performed 05/22/2020 showing stenosis of the cystic duct with eventual passage of a small volume of contrast to the common duct and perforation of the neck of the gallbladder. General surgery following. Cholecystectomy planned for later. Still with the RUQ pain but clinical exam benign and repeat CT abdomen 05/25 showing improvement in findings; no abscess. Etiology of increase in abd pain unclear but could be related to cholecystitis. (3) Acute renal failure: Qualifiers: Acute renal failure type: unspecified Qualified Code(s): N17.9 - Acute kidney failure, unspecified Code(s): N17.9 - Acute kidney failure, unspecified Status: Resolved Assessment and Plan: Secondary to septic shock with hypovolemia and hypoperfusion from hypotension. Creatinine was 2.5 but now down to 1.0 (4) Atrial fibrillation with rapid ventricular response: Onset Date: Unknown Code(s): I48.91 - Unspecified atrial fibrillation Status: Acute Assessment and Plan: Patient with history of paroxysmal atrial fibrillation. Patient presents with atrial fibrillation/tachycardia with RVR on arrival to the ED. Patient converted to normal sinus rhythm. We continued her oral amiodarone and Eliquis. (5) Left arm swelling: Code(s): M79.89 - Other specified soft tissue disorders Status: Resolved Assessment and Plan: Noted to have increasing edema to the left arm. Bilateral upper extremity venous Doppler negative for DVT. Possibly from iv infiltration. Symptoms improved. (6) Right middle lobe pulmonary nodule: Code(s): R91.1 - Solitary pulmonary nodule Status: Acute Assessment and Plan: CT scan of the chest showing an indeterminate 6 mm nodule of the right middle lobe. It was recommended to follow-up with repeat CT in 6-12 months. Discussed with family and they will arrange with the patient's PCP. DS: Summary Hospital Course Reason for hospitalization: 85yo female presents to the ED via EMS from home with complaints of generalized weakness shortness of breath. Please see H&P for details. Hospital Course: Please see above for details hospital course. Status at Discharge Cognitive/behavioral status at discharge: Stable Time Spent with Patient Time attestation: Total time spent providing and/or coordinating discharge services: 40 minutes Time spent: Greater than 30 minutes Specific discharge activities: Discussed at length with patient and family. Exam Narrative: Exam Narrative: She feels well. No n/v. Nml BM. No CP or SOB. No change in abdomnal pain AF 97.9 147/65 65 14 98% r
== END 2020-05-27 18:35 | DRG 871 ==
LOC: ANHED 14:00 → ANHICU 05-20 12:01 → ANH2MED 05-21 10:19 → ANHICU 05-31 10:18
PROVIDERS: Family Medicine; Internal Medicine; Internal Medicine Nephrology; Physician Assistant; Surgery; Admitting Provider Family Medicine; Emergency Provider Emergency Medicine; Visit Provider Internal Medicine
DX: A41.51 Sepsis due to Escherichia coli [E. coli] (principal); R65.21 Severe sepsis with septic shock; N17.0 Acute kidney failure with tubular necrosis; K81.0 Acute cholecystitis; I48.20 Chronic atrial fibrillation, unspecified; I69.354 Hemiplegia and hemiparesis following cerebral infarction affecting left non-dominant side; J98.11 Atelectasis; Z20.822 Contact with and (suspected) exposure to COVID-19; B95.2 Enterococcus as the cause of diseases classified elsewhere; B96.7 Clostridium perfringens [C. perfringens] as the cause of diseases classified elsewhere; R91.1 Solitary pulmonary nodule; M79.89 Other specified soft tissue disorders; I10 Essential (primary) hypertension; E78.5 Hyperlipidemia, unspecified; M19.90 Unspecified osteoarthritis, unspecified site; Z86.16 Personal history of COVID-19; Z79.01 Long term (current) use of anticoagulants; Z98.42 Cataract extraction status, left eye; Z98.41 Cataract extraction status, right eye; Z90.49 Acquired absence of other specified parts of digestive tract
CPT/HCPCS: 36415; 36556; 36569; 36600; 47490; 47531; 71045; 71250; 74176; 76775; 80053; 80069; 81001; 82436; 82550; 82570; 82805; 83605; 83735; 83880; 84133; 84134; 84300; 84484; 85025; 85027; 85049; 85380; 85384; 85610; 85730; 85999; 86140; 87040; 87070; 87075; 87076; 87077; 87086; 87088; 87185; 87186; 87205; 87338; 93005; 93970; 94640; 96361; 96374; 96375; 97110; 97116; 97161; 97165; 97530; 97535; 99291; A9270; C1751; C9803; J0696; J0743; J1100; J1170; J2405; J3370; J3475; J7120; Q9966; U0003; U0005

== ENCOUNTER 2020-05-27 19:15 | Inpatient (IN) | payer MEDICARE, SELFPAY ==
[2020-05-27 19:30] VITALS: BMI 30.2
--- NOTE | 2020-05-27 20:25 | WPDREHABHP ---
H&P: HPI History of Present Illness Date/Time: 05/27/20 20:25 85-year-old female recently transferred for rehab from [facility]. The patient was initially admitted to [facility] ICU with septic shock had pressor support with Levophed due to bacteremia secondary to cholecystitis. The patient had a cholecystectomy on May 19, 2020. Blood cultures did show that she had E coli and Enterococcus faecalis and was being treated with Primaxin. Patient also has a history of atrial fibrillation and had a rapid ventricular rate was put on amiodarone and Eliquis. The patient was discharged from [facility] with instructions to empty her cholecystectomy tube and record output in mL q.day and send results to Dr. Holder. Chief Complaint: Weakness Review of Systems Review of Systems All systems reviewed & are unremarkable except as noted in HPI and below PMFSH Past Medical History Medical History Arthritis Atrial fibrillation with rapid ventricular response (Unknown) Cerebrovascular accident (~2018) Residual left-sided weakness. COVID-19 (~12/2019) Current use of care home anticoagulation Hyperlipidemia Hypertension Paroxysmal atrial fibrillation Surgical History Surgical History History of appendectomy History of bilateral cataract extraction History of tubal ligation Family History Family History Mother Alzheimer's dementia Father Lung cancer Social History Social History Social History: The patient lives in [place]. 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 No alcohol, tobacco, or illicit substance use. Her daughter Viridiana farley is her healthcare power of attorney law clerk. At this time she wishes to be a full code however would not want to be on long-term life support. Smoking status: Never smoker Second hand tobacco smoke exposure: No Alcohol intake: never Substance use: never Spiritual care concerns: No Meds Home Medications and Allergies Home Medications Medication Instructions Recorded Confirmed Type Eliquis 2.5 mg BID 05/18/20 05/27/20 History amiodarone 100 mg PO DAILY 05/18/20 05/27/20 History atorvastatin 40 mg PO HS 05/18/20 05/27/20 History fluticasone propionate 2 spray INTRANASAL DAILY 05/18/20 05/27/20 History lisinopril 20 mg PO DAILY 05/18/20 05/27/20 History acetaminophen [Mapap 650 mg PO Q6H PRN #30 tablet 05/27/20 05/27/20 Rx (acetaminophen)] docusate sodium 100 mg PO Q12HR #30 cap 05/27/20 05/27/20 Rx hydrocodone-acetaminophen 1 tablet PO Q6H PRN #7 tablet 05/27/20 05/27/20 Rx imipenem-cilastatin 250 mg IV Q6HR #18 ea 05/27/20 05/27/20 Rx Allergies Allergy/AdvReac Type Severity Reaction Status Date / Time Penicillins Allergy Mild Itching Verified 05/18/20 12:06 Sulfa (Sulfonamide Allergy Hives Verified 05/18/20 12:06 Antibiotics) tramadol AdvReac Nausea and Verified 05/18/20 14:06 Vomiting Exam Const General: cooperative, comfortable and no acute distress HENMT Head: normal to inspection General nose exam: Normal external nose present Face and sinus: normal facial exam Mouth: Yes Normal oral and palatal mucosa present Eyes General: appearance normal, both eyes and all related structures Eyelids: eyelids normal Conjunctivae: conjunctivae normal Sclera: sclerae normal Chest Chest palpation & inspection: normal inspection of the chest and normal palpation of entire chest wall Resp Effort & Inspection: normal respiratory effort and able to speak in complete sentences Auscultation: clear to auscultation bilaterally Cardio Jugular venous distension: no JVD Palpation: normal PMI Rate: regular rate Rhythm: abnormal rhythm Heart sounds: S1 normal heart sound present and S2 normal heart sound present GI Inspection: normal to
[2020-05-27 20:52] VITALS: BP 150/72; PULSE 74; RESP 16; TEMP 37.2; O2SAT 97
[2020-05-27] MEDS: ATORVASTATIN 40 MG TABLET PO (21:10)
[2020-05-27] MEDS: ACETAMINOPHEN 325 MG TABLET 650 MG PO (21:12)
[2020-05-27] MEDS: DOCUSATE SODIUM 100 MG CAPSULE PO (21:14)
[2020-05-28] VITALS: BP 155/73; PULSE 86; RESP 18; TEMP 36.8; O2SAT 97
--- NOTE | 2020-05-28 07:01 | PC.NURSE ---
pT RESTING PER BED, REPORT TO LAUREN OMNTESINOS
[2020-05-28 07:35] VITALS: BP 142/80; PULSE 72; RESP 18; TEMP 36.1; O2SAT 96
[2020-05-28 09:14] VITALS: PULSE 72
[2020-05-28] MEDS: AMIODARONE HCL 200 MG TABLET 100 MG BY MOUTH (09:14)
[2020-05-28] MEDS: FLUTICASONE PROPIONATE 0.05% NA SPR 16 GM BTL (*BKC) 2 SPRAY NASAL (09:14)
[2020-05-28] MEDS: APIXABAN 2.5 MG TABLET BY MOUTH (09:14)
[2020-05-28] MEDS: lisinopriL 20 MG TABLET PO (09:14)
[2020-05-28] MEDS: DOCUSATE SODIUM 100 MG CAPSULE PO ×2 (09:14→20:14)
[2020-05-28] MEDS: HYDROcodone/acetaminophen (*CRX) 5-325 MG TABLET 1 TAB PO ×2 (11:48→17:52)
[2020-05-28 15:45] VITALS: BP 118/67; PULSE 64; RESP 18; TEMP 36.8; O2SAT 95
[2020-05-28] MEDS: ACETAMINOPHEN 325 MG TABLET 650 MG PO (16:47)
[2020-05-28] MEDS: ATORVASTATIN 40 MG TABLET PO (20:14)
[2020-05-28] MEDS: APIXABAN 2.5 MG TABLET 5 MG BY MOUTH (20:14)
[2020-05-29] VITALS: BP 124/69; PULSE 60; RESP 16; TEMP 36.6; O2SAT 95
[2020-05-29 08:00] VITALS: BP 141/70; PULSE 70; RESP 18; TEMP 36.7; O2SAT 97
[2020-05-29] MEDS: FLUTICASONE PROPIONATE 0.05% NA SPR 16 GM BTL (*BKC) 2 SPRAY NASAL (09:18)
[2020-05-29 09:19] VITALS: PULSE 70
[2020-05-29] MEDS: lisinopriL 20 MG TABLET PO (09:19)
[2020-05-29] MEDS: DOCUSATE SODIUM 100 MG CAPSULE PO ×2 (09:19→20:36)
[2020-05-29] MEDS: AMIODARONE HCL 200 MG TABLET 100 MG BY MOUTH (09:19)
[2020-05-29] MEDS: APIXABAN 2.5 MG TABLET 5 MG BY MOUTH ×2 (09:19→20:36)
[2020-05-29] MEDS: HYDROcodone/acetaminophen (*CRX) 5-325 MG TABLET 1 TAB PO ×3 (10:38→22:25)
[2020-05-29] MEDS: ACETAMINOPHEN 325 MG TABLET 650 MG PO (14:28)
[2020-05-29 16:00] VITALS: BP 114/56; PULSE 65; RESP 16; TEMP 36.8; O2SAT 96
[2020-05-29] MEDS: ATORVASTATIN 40 MG TABLET PO (20:36)
[2020-05-30] VITALS: BP 117/70; PULSE 63; RESP 18; TEMP 36; O2SAT 95
[2020-05-30] MEDS: HYDROcodone/acetaminophen (*CRX) 5-325 MG TABLET 1 TAB PO ×4 (03:49→21:22)
[2020-05-30 07:45] VITALS: BP 129/63; PULSE 64; RESP 18; TEMP 36.9; O2SAT 95
[2020-05-30] MEDS: lisinopriL 20 MG TABLET PO (09:33)
[2020-05-30] MEDS: DOCUSATE SODIUM 100 MG CAPSULE PO ×2 (09:33→20:19)
[2020-05-30] MEDS: FLUTICASONE PROPIONATE 0.05% NA SPR 16 GM BTL (*BKC) 2 SPRAY NASAL (09:33)
[2020-05-30 09:34] VITALS: PULSE 64
[2020-05-30] MEDS: APIXABAN 2.5 MG TABLET 5 MG BY MOUTH ×2 (09:34→20:19)
[2020-05-30] MEDS: AMIODARONE HCL 200 MG TABLET 100 MG BY MOUTH (09:34)
[2020-05-30 15:39] VITALS: BP 121/62; PULSE 62; RESP 18; TEMP 36.7; O2SAT 98
[2020-05-30] MEDS: ATORVASTATIN 40 MG TABLET PO (20:19)
[2020-05-30] MEDS: ACETAMINOPHEN 325 MG TABLET 650 MG PO (23:17)
[2020-05-31] VITALS: BP 135/74; PULSE 60; RESP 18; TEMP 36.8; O2SAT 93
[2020-05-31] MEDS: HYDROcodone/acetaminophen (*CRX) 5-325 MG TABLET 1 TAB PO ×4 (03:28→21:13)
[2020-05-31] MEDS: ACETAMINOPHEN 325 MG TABLET 650 MG PO (07:39)
[2020-05-31 08:00] VITALS: BP 128/58; PULSE 62; RESP 16; TEMP 36.9; O2SAT 95
[2020-05-31] MEDS: FLUTICASONE PROPIONATE 0.05% NA SPR 16 GM BTL (*BKC) 2 SPRAY NASAL (09:40)
[2020-05-31] MEDS: polyethylene glycoL 3350 17 GM POWD.PACK PO (09:41)
[2020-05-31] MEDS: DOCUSATE SODIUM 100 MG CAPSULE PO ×2 (09:42→21:12)
[2020-05-31] MEDS: lisinopriL 20 MG TABLET PO (09:42)
[2020-05-31] MEDS: APIXABAN 2.5 MG TABLET 5 MG BY MOUTH ×2 (09:42→21:12)
[2020-05-31 09:43] VITALS: PULSE 62
[2020-05-31] MEDS: AMIODARONE HCL 200 MG TABLET 100 MG BY MOUTH (09:43)
[2020-05-31 16:00] VITALS: BP 101/65; PULSE 67; RESP 18; TEMP 36.6; O2SAT 97
--- NOTE | 2020-05-31 19:51 | PC.NURSE ---
Patient requested pain medication be administered when next dose administered
[2020-05-31] MEDS: ATORVASTATIN 40 MG TABLET PO (21:12)
[2020-06-01] VITALS: BP 121/57; PULSE 67; RESP 14; TEMP 37.2; O2SAT 97
[2020-06-01 07:21] VITALS: BP 131/65; PULSE 63; RESP 16; TEMP 36.8; O2SAT 96
[2020-06-01 07:31] VITALS: TEMP 36.8
[2020-06-01] MEDS: ACETAMINOPHEN 325 MG TABLET 650 MG PO (07:31)
[2020-06-01] MEDS: lisinopriL 20 MG TABLET PO (08:42)
[2020-06-01] MEDS: polyethylene glycoL 3350 17 GM POWD.PACK PO (08:42)
[2020-06-01] MEDS: APIXABAN 2.5 MG TABLET 5 MG BY MOUTH (08:42)
[2020-06-01] MEDS: FLUTICASONE PROPIONATE 0.05% NA SPR 16 GM BTL (*BKC) 2 SPRAY NASAL (08:43)
[2020-06-01 08:44] VITALS: PULSE 63
[2020-06-01] MEDS: AMIODARONE HCL 200 MG TABLET 100 MG BY MOUTH (08:44)
[2020-06-01] MEDS: DOCUSATE SODIUM 100 MG CAPSULE PO (08:48)
--- NOTE | 2020-06-01 12:11 | P.DS_ITS ---
DS: Admitting Diagnosis Admitting Diagnosis Admitting Diagnosis: Generalized weakness <Guera HolderALEKSANDRAC - Last Filed: 06/01/20 12:46> DS: Discharge Diagnosis Discharge Diagnosis (1) Generalized weakness: Code(s): R53.1 - Weakness <Guera HolderALEKSANDRAC - Last Filed: 06/01/20 12:46> Status: Acute <Guera HolderLISSALaurenceKatarina - Last Filed: 06/01/20 12:46> Assessment and Plan: * Patient has completed physical therapy/Occupational Therapy as inpatient she was discharged with outpatient PT * Physical therapy/occupational therapy has cleared patient for discharge <Guera HolderALEKSANDRAC - Last Filed: 06/01/20 12:46> (2) Right middle lobe pulmonary nodule: Code(s): R91.1 - Solitary pulmonary nodule <Guera HolderALEKSANDRAC - Last Filed: 06/01/20 12:46> Status: Acute <Guera HolderCHANCE - Last Filed: 06/01/20 12:46> Assessment and Plan: * Follow-up with CT in 6 to 12 months <Guera HolderALEKSANDRAC - Last Filed: 06/01/20 12:46> (3) Paroxysmal atrial fibrillation: Code(s): I48.0 - Paroxysmal atrial fibrillation <Guera HolderALEKSANDRAC - Last Filed: 06/01/20 12:46> Status: Chronic <Guera HolderCHANCE - Last Filed: 06/01/20 12:46> Assessment and Plan: * Controlled * Continue amiodarone and Eliquis * Follow-up with primary care physician <Guera PazCHANCE Sierra - Last Filed: 06/01/20 12:46> (4) Acute cholecystitis: Onset Date: ~05/15/20 <Guera BrandiCHANCE Sierra - Last Filed: 06/01/20 12:46> Code(s): K81.0 - Acute cholecystitis <Guera BrandiLISSA Sierra-C - Last Filed: 06/01/20 12:46> Status: Acute <Marianokarsten BrandiCHANCE Sierra - Last Filed: 06/01/20 12:46> Assessment and Plan: * colecystitis in place completed 05/19/2020. By Dr. Holder * Family will complete a follow-up appointment with Dr. Holder in 1 week after discharge from rehab * Dr. Holder will discuss possible laparoscopic cholecystectomy versus removal of cholecystostomy tube <CHANCE Reeves - Last Filed: 06/01/20 12:46> (5) Acute renal failure: Qualifiers: Acute renal failure type: unspecified Qualified Code(s): N17.9 - Acute kidney failure, unspecified <Guera PazKaylin Holder CHANCE - Last Filed: 06/01/20 12:46> Code(s): N17.9 - Acute kidney failure, unspecified <Guera Justin Holder ALEKSANDRAKatarina - Last Filed: 06/01/20 12:46> Status: Resolved <Marianokarsten MARK HollinsAlivia - Last Filed: 06/01/20 12:46> Assessment and Plan: * Resolved * Possibly secondary to sepsis * Creatinine within normal limit <Guera Justin Holder CHANCE - Last Filed: 06/01/20 12:46> (6) Bacteremia: Code(s): R78.81 - Bacteremia <Marianokarsten Holder CHANCE - Last Filed: 06/01/20 12:46> Status: Acute <Guera PazKaylin Holder CHANCE - Last Filed: 06/01/20 12:46> Assessment and Plan: * Body fluid with the growth Clostridium perfringens and e. Coli. Blood cultures with the growth of e.Coli and Enterocioccus faecalis * Infectious disease consult tomorrow [place] recommended imipenem to 06/01 or thereafter * Repeat blood cultures without growth <CHANCE Reeves - Last Filed: 06/01/20 12:46> DS: Summary Hospital Course Reason for hospitalization: Generalized weakness/physical deconditioning <CHANCE Reeves - Last Filed: 06/01/20 12:46> Hospital Course: The patient was initially admitted to [facility] ICU with septic shock had pressor support with Levophed due to bacteremia second
--- NOTE | 2020-06-01 12:11 | PM.DS ---
DS: Admitting Diagnosis Admitting Diagnosis Admitting Diagnosis: Generalized weakness <Guera Holder LISSA-C - Last Filed: 06/01/20 12:46> DS: Discharge Diagnosis Discharge Diagnosis (1) Generalized weakness: Code(s): R53.1 - Weakness <LISSA Reeves-C - Last Filed: 06/01/20 12:46> Status: Acute <ALEKSANDRA ReevesC - Last Filed: 06/01/20 12:46> Assessment and Plan: Patient has completed physical therapy/Occupational Therapy as inpatient she was discharged with outpatient PT Physical therapy/occupational therapy has cleared patient for discharge <Guera Holder CHIEF INFORMATICS OFFICER-C - Last Filed: 06/01/20 12:46> (2) Right middle lobe pulmonary nodule: Code(s): R91.1 - Solitary pulmonary nodule <Guera Holder LISSA-C - Last Filed: 06/01/20 12:46> Status: Acute <Guera Holder LISSA-C - Last Filed: 06/01/20 12:46> Assessment and Plan: Follow-up with CT in 6 to 12 months <Guera Holder LISSA-C - Last Filed: 06/01/20 12:46> (3) Paroxysmal atrial fibrillation: Code(s): I48.0 - Paroxysmal atrial fibrillation <Guera Holder LISSA-C - Last Filed: 06/01/20 12:46> Status: Chronic <Guera Holder LISSA-C - Last Filed: 06/01/20 12:46> Assessment and Plan: Controlled Continue amiodarone and Eliquis Follow-up with primary care physician <Guera Holder CHIEF INFORMATICS OFFICER-C - Last Filed: 06/01/20 12:46> (4) Acute cholecystitis: Onset Date: ~05/15/20 <Guera Holder CHIEF INFORMATICS OFFICER-C - Last Filed: 06/01/20 12:46> Code(s): K81.0 - Acute cholecystitis <Guera Holder CHIEF INFORMATICS OFFICER-C - Last Filed: 06/01/20 12:46> Status: Acute <Guera Holder CHIEF INFORMATICS OFFICER-C - Last Filed: 06/01/20 12:46> Assessment and Plan: colecystitis in place completed 05/19/2020. By Dr. Holder Family will complete a follow-up appointment with Dr. Holder in 1 week after discharge from rehab Dr. Holder will discuss possible laparoscopic cholecystectomy versus removal of cholecystostomy tube <CHANCE Reeves - Last Filed: 06/01/20 12:46> (5) Acute renal failure: Qualifiers: Acute renal failure type: unspecified Qualified Code(s): N17.9 - Acute kidney failure, unspecified <CHANCE Reeves - Last Filed: 06/01/20 12:46> Code(s): N17.9 - Acute kidney failure, unspecified <CHANCE Reeves - Last Filed: 06/01/20 12:46> Status: Resolved <CHANCE Reeves - Last Filed: 06/01/20 12:46> Assessment and Plan: Resolved Possibly secondary to sepsis Creatinine within normal limit <CHANCE Reeves - Last Filed: 06/01/20 12:46> (6) Bacteremia: Code(s): R78.81 - Bacteremia <CHANCE Reeves - Last Filed: 06/01/20 12:46> Status: Acute <CHANCE Reeves - Last Filed: 06/01/20 12:46> Assessment and Plan: Body fluid with the growth Clostridium perfringens and e. Coli. Blood cultures with the growth of e.Coli and Enterocioccus faecalis Infectious disease consult tomorrow [place] recommended imipenem to 06/01 or thereafter Repeat blood cultures without growth <CHANCE Reeves - Last Filed: 06/01/20 12:46> DS: Summary Hospital Course Reason for hospitalization: Generalized weakness/physical deconditioning <CHANCE Reeves - Last Filed: 06/01/20 12:46> Hospital Course: The patient was initially admitted to [facility] ICU with septic shock had pressor support with Levophed due to bacteremia secondary to cholecystitis. The patient had a cholecystectomy on May 19, 2020. Blood cultures did show that she had E coli and Enterococcus faecalis and was being treated with Primaxin. Patient also has a history of atrial fibrillation and had a rapid ventricular rate was put on amiodarone and Eliquis. Patient has completed her imipenem IV antibiotics she will discharge
--- NOTE | 2020-06-01 13:28 | PM.EVENT ---
Event Note Event Note Event Note: PICC line pulled catheter leg 15 cm in the right upper arm basilic. Patient negative for excessive bleeding irregular heart beats damage to vein in the arm or infection.
--- NOTE | 2020-06-01 13:35 | PC.NURSE ---
Addendum entered by Daniel Cambpell RN 06/01/20 14:05: Midline inserted to RUE removed following final dose of IV ABT and flushing prior to discharge. Original Note: Patient discharged home with daughter transporting via personal vehicle to family home. Nurse escorted patient down to facility entrance via WC and assisted w/patient transfer to vehicle. All personal items taken with by daughter. Patient and daughter both educated on new medications prescribed and which medications to continue. Both notified of follow up appointments and labs that have been scheduled and needed to be obtained.
--- NOTE | 2020-06-07 11:50 | PC.NURSE ---
Unable to contact for discharge call back.
== END 2020-06-01 13:30 | disposition home or self-care (01) | DRG 872 ==
PROVIDERS: Admitting Provider Emergency Medicine; Visit Provider Emergency Medicine
DX: A41.51 Sepsis due to Escherichia coli [E. coli] (principal); K81.0 Acute cholecystitis; I69.354 Hemiplegia and hemiparesis following cerebral infarction affecting left non-dominant side; I48.0 Paroxysmal atrial fibrillation; I10 Essential (primary) hypertension; E78.5 Hyperlipidemia, unspecified; R53.1 Weakness; R91.1 Solitary pulmonary nodule; Z79.01 Long term (current) use of anticoagulants; Z93.4 Other artificial openings of gastrointestinal tract status; Z90.49 Acquired absence of other specified parts of digestive tract
CPT/HCPCS: 87040; 97110; 97161; 97165; 97530; 97535; A9270; J0743

== ENCOUNTER 2020-06-07 11:53 | Outpatient (CLI) | payer MEDICARE, SELFPAY ==
[2020-06-07 12:28] LABS: Basophils Absolute Auto 0.1 K/mm3 (0.0-0.1); Basophils Percent Auto 0.4 % (0.2-1.2); Eosinophils Absolute Auto 0.1 K/mm3 (0-0.3); Eosinophils Percent Auto 0.4 % (0-4.4); Hematocrit 32.7 % (37.0-47.0); Hemoglobin 10.8 g/dL (12.0-15.0); Immature Granulocyte Absolute 0.26 K/mm3 (0.00-0.031); Immature Granulocyte Percent A 1.2 % (0-0.5); Lymphocytes Absolute Auto 1.13 K/mm3 (0.9-3.2); Lymphocytes Percent Auto 5.1 % (18.3-44.2); Mean Corpuscular Hemoglobin 31.6 pg (26-34); Mean Corpuscular Volume 95.6 fl (80-100); Mean Platelet Volume 10.2 fl (7.4-10.4); Monocytes Percent Auto 8.9 % (2.6-8.5); Neutrophils Absolute Auto 18.8 K/mm3 (1.3-6.7); Platelet Count Result 436 k/mm3 (150-375); Red Blood Count 3.42 M/mm3 (4.2-5.4); Red Cell Distribution Width 14.1 % (11.5-14.5); White Blood Count 22.3 K/mm3 (4.5-10.0)
[2020-06-07 12:34] LABS: Alanine Aminotransferase 28 U/L (4-35); Albumin Level 3.2 g/dL (3.5-5.1); Alkaline Phosphatase 162 U/L (38-126); Anion Gap 6 mmol/L (8-16); Aspartate Amino Transferase 42 U/L (14-36); Bilirubin,Total 0.5 mg/dL (0.2-1.3); Blood Urea Nitrogen 35 mg/dL (7-17); Calcium 8.4 mg/dL (8.4-10.2); Carbon Dioxide 26 mmol/L (22-30); Chloride 98 mmol/L (98-107); Estimated Glomerular Filt Rate 39; Glucose 132 mg/dL (65-105); Lipase 52 U/L (23-300); Potassium 4.6 mmol/L (3.4-5.0); Sodium 130 mmol/L (137-145)
== END 2020-06-07 11:54 | disposition home or self-care (01) ==
PROVIDERS: Visit Provider Surgery
DX: K81.0 Acute cholecystitis (principal)
CPT/HCPCS: 36415; 80053; 83690; 85025

== ENCOUNTER → 2020-06-12 02:06 | Outpatient (CLI) | payer MEDICARE, SELFPAY ==
[2020-06-12 19:34] LABS: SARS-CoV-2 RNA PCR Negative
== END ==
PROVIDERS: Visit Provider Surgery
DX: Z01.812 Encounter for preprocedural laboratory examination (principal); Z20.822 Contact with and (suspected) exposure to COVID-19
CPT/HCPCS: C9803; U0003; U0005

== ENCOUNTER 2020-06-12 10:03 | Outpatient (CLI) | payer MEDICARE, SELFPAY ==
[2020-06-12 10:27] LABS: Basophils Absolute Auto 0.1 K/mm3 (0.0-0.1); Basophils Percent Auto 0.3 % (0.2-1.2); Eosinophils Absolute Auto 0.2 K/mm3 (0-0.3); Eosinophils Percent Auto 0.9 % (0-4.4); Hematocrit 31.4 % (37.0-47.0); Hemoglobin 10.8 g/dL (12.0-15.0); Immature Granulocyte Absolute 0.59 K/mm3 (0.00-0.031); Immature Granulocyte Percent A 2.1 % (0-0.5); Lymphocytes Absolute Auto 1.32 K/mm3 (0.9-3.2); Lymphocytes Percent Auto 4.8 % (18.3-44.2); Mean Corpuscular HGB Conc 34.4 g/dl (32-36); Mean Corpuscular Hemoglobin 31.5 pg (26-34); Mean Corpuscular Volume 91.5 fl (80-100); Mean Platelet Volume 9.3 fl (7.4-10.4); Monocytes Absolute Auto 1.4 K/mm3 (0.1-0.6); Monocytes Percent Auto 5.2 % (2.6-8.5); Neutrophils Absolute Auto 23.8 K/mm3 (1.3-6.7); Neutrophils Percent Auto 86.7 % (45.5-73.1); Platelet Count Result 399 k/mm3 (150-375); Red Blood Count 3.43 M/mm3 (4.2-5.4); Red Cell Distribution Width 14.2 % (11.5-14.5); White Blood Count 27.5 K/mm3 (4.5-10.0)
--- NOTE | 2020-06-12 10:30 | ECG_ITS ---
Measurements Intervals Bryan Rate: 88 P: 33 SD: 169 QRS: 34 QRSD: 85 T: -14 QT: 353 QTc: 428 Interpretive Statements SINUS RHYTHM LOW QRS VOLTAGE IN PRECORDIAL LEADS CANNOT RULE OUT SEPTAL INFARCT, AGE INDETERMINATE CONSIDER INFERIOR INFARCT, AGE INDETERMINATE BORDERLINE ST-T WAVE ABNORMALITY- ANTERIOR LEADS BASELINE WANDER- V5-V6 ABNORMAL ECG Electronically Signed On 06-12-2020 11:36:02 CDT by Wilbert Tristan D.O.
[2020-06-12 10:37] LABS: Alanine Aminotransferase 23 U/L (4-35); Alkaline Phosphatase 145 U/L (38-126); Amylase 171 U/L (30-110); Aspartate Amino Transferase 39 U/L (14-36); Bilirubin,Total 0.5 mg/dL (0.2-1.3); Lipase 868 U/L (23-300)
== END 2020-06-12 10:04 | disposition home or self-care (01) ==
PROVIDERS: Referring Provider Anesthesiology; Visit Provider Surgery
DX: K81.0 Acute cholecystitis (principal); I48.0 Paroxysmal atrial fibrillation; R94.31 Abnormal electrocardiogram [ECG] [EKG]
CPT/HCPCS: 36415; 80076; 82150; 83690; 85025; 93005; C9803; U0003; U0005

== ENCOUNTER 2020-06-17 14:43 | Inpatient (IN) | payer MEDICARE, SELFPAY ==
[2020-06-09 12:29] VITALS: BMI 24.8
[2020-06-16] VITALS (15 sets, daily range): BP systolic 84–169; BP diastolic 41–74; PULSE 71–92; RESP 10–16; TEMP 35.7–36.8; O2SAT 92–100; BMI 33.1
[2020-06-16] MEDS: ACETAMINOPHEN 500 MG TABLET 1000 MG PO (10:43)
[2020-06-16 11:07] LABS: Basophils Absolute Auto 0.1 K/mm3 (0.0-0.1); Basophils Percent Auto 0.4 % (0.2-1.2); Eosinophils Absolute Auto 0.2 K/mm3 (0-0.3); Eosinophils Percent Auto 1.5 % (0-4.4); Hematocrit 30.1 % (37.0-47.0); Hemoglobin 10.1 g/dL (12.0-15.0); Immature Granulocyte Absolute 0.35 K/mm3 (0.00-0.031); Immature Granulocyte Percent A 2.2 % (0-0.5); Lymphocytes Absolute Auto 1.45 K/mm3 (0.9-3.2); Lymphocytes Percent Auto 9.1 % (18.3-44.2); Mean Corpuscular HGB Conc 33.6 g/dl (32-36); Mean Corpuscular Hemoglobin 31.2 pg (26-34); Mean Corpuscular Volume 92.9 fl (80-100); Mean Platelet Volume 9.3 fl (7.4-10.4); Monocytes Absolute Auto 1.2 K/mm3 (0.1-0.6); Monocytes Percent Auto 7.8 % (2.6-8.5); Neutrophils Absolute Auto 12.5 K/mm3 (1.3-6.7); Platelet Count Result 493 k/mm3 (150-375); Red Blood Count 3.24 M/mm3 (4.2-5.4); White Blood Count 15.9 K/mm3 (4.5-10.0)
[2020-06-16] MEDS: KETOROLAC 15 MG/ML VIAL (*BKC) IV PUSH (11:11)
[2020-06-16] MEDS: LACTATED RINGERS 1,000 ML 30 ML IV CONT ×2 (11:12→15:40)
--- NOTE | 2020-06-16 11:13 | WPDANESEPPF ---
Anes - Initial Pre Proc Eval Procedure: Operation Date: 06/16/20 12:00 Proposed Procedures p Laparoscopic Cholecystectomy, Possible Intra Operative Cholangiograms, Possible Open - Arcenio Holder MD Date/Time: 06/16/20 11:13 Surgeon: Arcenio Holder MD Pre Op Diagnosis: recent acute cholecystitis with cholelithiasis Patient Data Age: 85 Gender: F Height: 5 ft 3 in Weight: 66.4 kg Last Vital Signs Temp 36.8 C 06/16/20 10:50 Pulse 74 06/16/20 10:50 Resp 16 06/16/20 10:50 BP 169/74 H 06/16/20 10:50 Pulse Ox 100 06/16/20 10:50 Allergies Allergy/AdvReac Type Severity Reaction Status Date / Time Penicillins Allergy Mild Itching Verified 06/16/20 11:14 Sulfa (Sulfonamide Allergy Hives Verified 06/16/20 11:14 Antibiotics) tramadol AdvReac Nausea and Verified 06/16/20 11:14 Vomiting Home Medications Medication Instructions Recorded Confirmed Type Eliquis 2.5 mg BID 05/18/20 06/16/20 History amiodarone 100 mg PO DAILY 05/18/20 06/16/20 History atorvastatin 40 mg PO HS 05/18/20 06/16/20 History fluticasone propionate 2 spray INTRANASAL DAILY 05/18/20 06/16/20 History lisinopril 20 mg PO DAILY 05/18/20 06/16/20 History docusate sodium 100 mg PO Q12HR #30 cap 05/27/20 06/16/20 Rx pantoprazole [Protonix] 20 mg PO QAM 28 Days #28 tablet 06/01/20 06/16/20 Rx polyethylene glycol 3350 [Miralax] 17 g PO QAM PRN 30 Days #1 ea 06/01/20 06/16/20 Rx cefdinir 300 mg capsule 300 mg PO Q12H #10 cap 06/07/20 06/16/20 Rx hydrocodone 7.5 mg-acetaminophen 1 tablet PO Q6H PRN #20 tablet 06/07/20 06/16/20 Rx 325 mg tablet Laboratory Tests 06/16/20 06/16/20 06/16/20 11:00 11:00 11:00 WBC 15.9 K/mm3 H K/mm3 (4.5-10.0) RBC 3.24 M/mm3 L M/mm3 (4.2-5.4) Hgb 10.1 g/dL L g/dL (12.0-15.0) Hct 30.1 % L % (37.0-47.0) MCV 92.9 fl fl (80-100) MCH 31.2 pg pg (26-34) MCHC 33.6 g/dl g/dl (32-36) RDW 14.0 % % (11.5-14.5) Plt Count 493 k/mm3 H k/mm3 (150-375) MPV 9.3 fl fl (7.4-10.4) Immature Gran % (Auto) 2.2 % H % (0-0.5) Neut % (Auto) 79.0 % H % (45.5-73.1) Lymph % (Auto) 9.1 % L % (18.3-44.2) Hitchcock % (Auto) 7.8 % % (2.6-8.5) Eos % (Auto) 1.5 % % (0-4.4) Baso % (Auto) 0.4 % % (0.2-1.2) Lymph # (Auto) 1.45 K/mm3 K/mm3 (0.9-3.2) Hitchcock # (Auto) 1.2 K/mm3 H K/mm3 (0.1-0.6) Eos # (Auto) 0.2 K/mm3 K/mm3 (0-0.3) Baso # (Auto) 0.1 K/mm3 K/mm3 (0.0-0.1) Abs Immat Gran (auto) 0.35 K/mm3 H K/mm3 (0.00-0.031) Absolute Neuts (auto) 12.5 K/mm3 H K/mm3 (1.3-6.7) Absolute Nucleated RBC 0.0 K/mm3 K/mm3 (0.0-0.012) Nucleated RBC % 0.0 % % (0.0-0.2) PT INR APTT Sodium Pending Potassium Pending Chloride Pending Carbon Dioxide Pending Anion Gap Pending BUN Pending Creatinine Pending Estim Creat Clear Calc Pending Estimated GFR Pending Glucose Pending Calcium Pending Total Bilirubin Pending AST Pending ALT Pending Alkaline Phosphatase Pending Total Protein Pending Albumin Pending Prealbumin Pending Lipase Pending 06/16/20 11:00 WBC RBC Hgb Hct MCV MCH MCHC RDW Plt Count MPV Immature Gran % (Auto) Neut % (Auto) Lymph % (Auto) Hitchcock % (Auto) Eos % (Auto) Baso % (Auto) Lymph # (Auto) Hitchcock # (Auto) Eos # (Auto) Baso # (Auto) Abs Immat Gran (auto) Absolute Neuts (auto) Absolute Nucleated RBC Nucleated RBC % PT Pending
[2020-06-16 11:18] LABS: Alanine Aminotransferase 59 U/L (4-35); Albumin Level 3.1 g/dL (3.5-5.1); Alkaline Phosphatase 120 U/L (38-126); Anion Gap 6 mmol/L (8-16); Aspartate Amino Transferase 71 U/L (14-36); Bilirubin,Total 0.6 mg/dL (0.2-1.3); Blood Urea Nitrogen 11 mg/dL (7-17); Calcium 8.3 mg/dL (8.4-10.2); Carbon Dioxide 26 mmol/L (22-30); Chloride 98 mmol/L (98-107); Estimated CRCL calculation 34 ml/min; Estimated Glomerular Filt Rate 60; Glucose 90 mg/dL (65-105); Lipase 763 U/L (23-300); Potassium 4.4 mmol/L (3.4-5.0); Sodium 130 mmol/L (137-145)
[2020-06-16 11:19] LABS: INR 1.2; Prothrombin Time 15.7 Seconds (11.1-14.7)
[2020-06-16 11:20] LABS: Partial Thromboplastin Time 30.1 SECONDS (22.3-36.8)
--- NOTE | 2020-06-16 11:35 | WPDHPUPDATE1 ---
History and Physical Update Update Date/Time: 06/16/20 11:35 History and Physical has been reviewed, including an updated exam of the patient. There are changes in the patient's condition. patient had preoperative labs that showed an elevated white count and lipase. Patient was started on antibiotics as an outpatient and the white count is down today to 15,000. Lipase is around the same level. She has known cholecystitis with cholelithiasis so we are planning to proceed with her laparoscopic possible open cholecystectomy today. Thorough discussion was undertaken with the patient and her [id number] daughters and they understand that she is at increased risk for surgery and general anesthesia. But because the patient's poor quality of life with current condition she would like to proceed understanding that she is at increased risk. She has been off her Eliquis for 2 days now and will resume it in about 36 hours if all goes well. Risks, benefits, and alternatives have been discussed and questions answered. Patient agrees to proceed with procedure.
[2020-06-16 11:36] LABS: Prealbumin 11.8 mg/dL (17.6-36.0)
[2020-06-16] MEDS: ceFAZolin 2 GM/D5W 50 ML 2 GM/50 ML BAG IVPB ×2 (12:05→20:38)
[2020-06-16] MEDS: BUPIVACAINE/EPINEPHRINE 0.5% 30 ML VIAL INFILTRATE (12:38)
--- NOTE | 2020-06-16 15:38 | PM.PROC ---
Procedure Note - Detailed Date of procedure: 06/16/20 Pre-op diagnosis: recent acute cholecystitis with cholelithiasis 2. mild pancreatitis Post-op diagnosis: other (Same as above and 3. several small CBD stones seen on IOC.) Procedure performed: Laparoscopic cholecystectomy with intraoperative cholangiogram. Description of procedure: Procedure Details: Patient was seen preoperatively in the holding area and risks, benefits and alternatives confirmed. Patient was taken to the operating room and general anesthesia was induced. A time out was then preformed with the surgery team confirming patient and site of surgery. The abdomen was prepped and draped in the usual sterile fashion. Incision was made just below the umbilicus. Two stay sutures of O- Vicryl were used to elevate the mid-line fascia beneath the umbilicus and a small incision was made under direct vision. The peritoneum was entered. The 12 mm No cannula was introduced under direct vision. First under low flow and then under high flow the abdomen was insufflated with carbon dioxide never exceeding a pressure of 14. Three 5 mm trocars were then introduced under direct vision. The following trocars were introduced under direct vision: a 5 mm in the epigastrium and two 5 mm trocars along the right costal margin. Inspection of the upper abdomen revealed some omental adhesions to the lateral side of the right lobe of the liver probably where her previous cholecystostomy tube exited. I took down some adhesions between the omentum in this area so that we could pull the omentum and large bowel out a way to do her gallbladder surgery. We could see easily see the upper end of the gallbladder which was in 2 inflamed but starting about detention from there down to the area of the triangle of colo there was significant dense adhesions which I had to dissect through carefully for more than 1 hour. Approximately 2 cm above the level of the junction with this cystic duct there was a hole in the anterior inferior wall of the gallbladder. Few stones came out but we always suction these away or extracted them with graspers. Because some fat hanging off the duodenum was constantly in the way of my dissection we placed a size 4th 5 mm port in the epigastric mid abdomen to use a Kittner to hold this out of the way. This facilitated further dissection and then we went ahead with the cholangiogram as described below. The gall bladder was grasped and the cystic duct and artery were dissected free and clipped with an 5 mm endo-clip strip cleaner. A small hole was made in the cystic duct with endoshears and a cholagio-cath introduced. A cholangiogram was obtained revealing free flow into the cystic duct, common bile duct, common hepatic, right and left hepatic ducts with free flow into the duodenum but with several small filling defects in the extrahepatic biliary tree near the distal end of the common bile duct and there was noted to be mild dilation of the common bile duct. It appeared that there was at least 2 cm of normal-appearing cystic duct distal to where I placed the catheter. I flushed with 30 cc of saline between the last 2 runs of the cholangiogram and perhaps 1 or 2 of the small stones distally passed on into the duodenum but there were still a few present on the last run of the cholangiogram. The catheter was removed and the cystic duct was clipped with a 5 mm endoclip-strip cleaner. Three clips were placed on the patient's side. The cystic duct was then transected. The cystic artery was also transected at this point. The gall bladder was removed using electrocautery and then removed using an endobag via the umbilical incision. Gallbladder bed was reinspected and suction senior quality control technician was used to cleanse the area until the effluent of fluid was clear. Then a 15 round TABATHA drain was inserted through the most lateral port site and positioned such that it is and and tip for near the cystic duct cystic artery clips in the gallbladder be
--- NOTE | 2020-06-16 15:54 | SUR.PHASEI ---
Anesthesia aware of soft BPs. Fluids are wide open and infusing at this time. Patient is alert and talking as well as asymptomatic.
--- NOTE | 2020-06-16 17:10 | ADMGEN ---
This patient, Ashly Larry, was admitted to Medical Room 258-01. Patient/family oriented to hospital policies and general routines including ID bracelet, bed and alarms, visiting hours, pain management, procedures, bathroom and other care routines, personal items, smoking policy, room service/diet, and visiting hours. Information on how to activate the Rapid Response Team has been discussed. Patient/Family are encouraged to report perceived risks to care and to ask questions if they do not understand what they are told or what they should do.
[2020-06-16] MEDS: LACTATED RINGERS 1,000 ML 100 ML IV CONT (17:27)
[2020-06-16] MEDS: SENNA/DOCUSATE SODIUM TABLET 2 TAB PO (20:38)
[2020-06-17] VITALS (11 sets, daily range): BP systolic 118–133; BP diastolic 50–68; PULSE 70–97; RESP 14–20; TEMP 36.1–37.1; O2SAT 94–98
--- NOTE | ~2020-06-17 | XR_ITS ---
EXAMINATION: XR cholangiogram surg 1st inj DATE: 06/16/2020 14:23 INDICATION: Intraoperative evaluation during laparoscopic cholecystectomy TECHNIQUE: Multiple fluoroscopic images of the right upper quadrant were obtained during intraoperati ve cholangiography. A total of 173 fluoroscopic images were obtained. The amount of fluoroscopy time used during this procedure was 0.7 minutes. COMPARISON: None. FINDINGS: Cannulation of the cystic duct demonstrates filling of a mildly dilated common bile duct an d central intrahepatic biliary tree. There is a cluster of small lucent filling defects consistent wi th choledocholithiasis at the distalmost aspect of the common bile duct. Contrast does however exten d into the duodenum. Cholecystectomy clips are seen at the gallbladder fossa. IMPRESSION: 1. Cluster of multiple small gallstones at the distalmost aspect of the mildly dilated common bile du ct but without high-grade obstruction with contrast passing into the duodenum. Dr. Little discussed these findings with Dr. Holder at 1:35 PM. Reviewed, dictated and finalized at location B. IMPRESSION: 1. Cluster of multiple small gallstones at the distalmost aspect of the mildly dilated common bile duct but without high-grade obstruction with contrast passi ng into the duodenum. Dr. Little discussed these findings with Dr. Holder at 1:35 PM.
--- NOTE | ~2020-06-17 | XR_ITS ---
EXAMINATION: XR ERCP EXAM DATE: 06/18/2020 13:52 INDICATION: Choledocholithiasis. TECHNIQUE: Fluoroscopy used during ERCP performed by Dr. Jin Rivera MD. Radiologis t was not present for the imaging or procedure. Total fluoroscopic time of 2.7 minutes. A total of 2 0 images obtained for the exam. The DAP for this procedure was 1.1 mGym2. Correlation made to intra operative cholangiogram from 06/16/2020 FINDINGS: The ampulla of Vater was cannulated by endoscopy scope and injected with contrast. There a re multiple filling defects in the distal aspect of the common bile duct. Common bile duct is moderat taran dilated. A balloon was inflated and stones cleared from the duct. Correlate with procedure note. IMPRESSION: Fluoroscopy used during choledocholithiasis removal. Reviewed, dictated and finalized at location A.
[2020-06-17] MEDS: HYDROcodone/acetaminophen (*CRX) 7.5-325 MG TABLET 1 TAB PO (02:10)
[2020-06-17] MEDS: ceFAZolin 2 GM/D5W 50 ML 2 GM/50 ML BAG IVPB ×2 (04:42→13:42)
[2020-06-17 05:31] LABS: Hematocrit 27.7 % (37.0-47.0); Mean Corpuscular HGB Conc 32.5 g/dl (32-36); Mean Corpuscular Hemoglobin 31.6 pg (26-34); Mean Corpuscular Volume 97.2 fl (80-100); Platelet Count Result 385 k/mm3 (150-375); Red Blood Count 2.85 M/mm3 (4.2-5.4); Red Cell Distribution Width 14.5 % (11.5-14.5); White Blood Count 31.8 K/mm3 (4.5-10.0)
[2020-06-17 06:34] LABS: Alanine Aminotransferase 53 U/L (4-35); Albumin Level 2.7 g/dL (3.5-5.1); Alkaline Phosphatase 120 U/L (38-126); Anion Gap 4 mmol/L (8-16); Aspartate Amino Transferase 100 U/L (14-36); Bilirubin,Total 0.4 mg/dL (0.2-1.3); Blood Urea Nitrogen 15 mg/dL (7-17); Carbon Dioxide 24 mmol/L (22-30); Chloride 99 mmol/L (98-107); Estimated CRCL calculation 42 ml/min; Estimated Glomerular Filt Rate 60; Glucose 132 mg/dL (65-105); Lipase 284 U/L (23-300); Potassium 5.6 mmol/L (3.4-5.0); Sodium 127 mmol/L (137-145)
--- NOTE | 2020-06-17 07:34 | PC.NURSE ---
Dr Trivedi notified at 0645 pt has not urinated in over 12 hours and bladder scan max is 268. Ordered to give her a little more time to urinate and if she is still unable to then to notify Dr. Holder of situation.
--- NOTE | 2020-06-17 07:36 | WPDANESPN ---
Anes - Prog Note Post-Op Date/Time: 06/17/20 07:36 Cardiovascular status: normal Respiratory status: normal Airway patency: baseline Mental status: baseline Post-Op hydration status: normal Vital Signs: Last Vital Signs Temp 36.1 C L 06/17/20 02:40 Pulse 70 06/17/20 04:00 Resp 16 06/17/20 02:40 BP 121/52 L 06/17/20 02:40 Pulse Ox 95 06/17/20 02:40 Pain Score (VAS): 0 I/O: Intake & Output 06/16/20 06/16/20 06/17/20 15:59 23:59 07:59 Intake Total 50 1070 1350 Output Total 150 Balance -100 1070 1350 Laboratory Tests 06/17/20 05:14 06/17/20 05:14 06/16/20 06/16/20 06/16/20 11:00 11:00 11:00 WBC 15.9 H RBC 3.24 L Hgb 10.1 L Hct 30.1 L MCV 92.9 MCH 31.2 MCHC 33.6 RDW 14.0 Plt Count 493 H MPV 9.3 Immature Gran % (Auto) 2.2 H Neut % (Auto) 79.0 H Lymph % (Auto) 9.1 L Cuming % (Auto) 7.8 Eos % (Auto) 1.5 Baso % (Auto) 0.4 Lymph # (Auto) 1.45 Cuming # (Auto) 1.2 H Eos # (Auto) 0.2 Baso # (Auto) 0.1 Abs Immat Gran (auto) 0.35 H Absolute Neuts (auto) 12.5 H Absolute Nucleated RBC 0.0 Nucleated RBC % 0.0 PT INR APTT Sodium 130 L Potassium 4.4 Chloride 98 Carbon Dioxide 26 Anion Gap 6 L BUN 11 D Creatinine 0.90 Estim Creat Clear Calc 34 Estimated GFR 60 Glucose 90 Calcium 8.3 L Total Bilirubin 0.6 AST 71 H ALT 59 H Alkaline Phosphatase 120 Total Protein 7.0 Albumin 3.1 L Prealbumin 11.8 L Lipase 763 H Blood Type Antibody Screen 06/16/20 06/16/20 06/17/20 11:00 11:00 05:14 WBC 31.8 H RBC 2.85 L Hgb 9.0 L Hct 27.7 L MCV 97.2 MCH 31.6 MCHC 32.5 RDW 14.5 Plt Count 385 H MPV 10.0 Immature Gran % (Auto) Neut % (Auto) Lymph % (Auto) Cuming % (Auto) Eos % (Auto) Baso % (Auto) Lymph # (Auto) Cuming # (Auto) Eos # (Auto) Baso # (Auto) Abs Immat Gran (auto) Absolute Neuts (auto) Absolute Nucleated RBC Nucleated RBC % PT 15.7 H INR 1.2 APTT 30.1 Sodium Potassium Chloride Carbon Dioxide Anion Gap BUN Creatinine Estim Creat Clear Calc Estimated GFR Glucose Calcium Total Bilirubin AST ALT Alkaline Phosphatase Total Protein Albumin Prealbumin Lipase Blood Type A Positive Antibody Screen Negative 06/17/20 05:14 WBC RBC Hgb Hct MCV MCH MCHC RDW Plt Count MPV Immature Gran % (Auto) Neut % (Auto) Lymph % (Auto) Cuming % (Auto) Eos % (Auto) Baso % (Auto) Lymph # (Auto) Cuming # (Auto) Eos # (Auto) Baso # (Auto) Abs Immat Gran (auto) Absolute Neuts (auto) Absolute Nucleated RBC Nucleated RBC % PT INR APTT Sodium 127 L Potassium 5.6 H Chloride 99 Carbon Dioxide 24 Anion Gap 4 L BUN 15 Creatinine 0.90 Estim Creat Clear Calc 42 Estimated GFR 60 Glucose 132 H Calcium 8.0 L Total Bilirubin 0.4 AST 100 H ALT 53 H Alkaline Phosphatase 120 Total Protein 6.0 L Albumin 2.7 L Prealbumin Lipase 284 Blood Type Antibody Screen Post-procedural complaints: none Patient Feedback: Patient satisfied with anesthetic care.
[2020-06-17] MEDS: HYDROcodone/acetaminophen (*CRX) 5-325 MG TABLET 1 TAB PO ×3 (08:02→20:31)
[2020-06-17] MEDS: AMIODARONE HCL 100 MG TABLET PO (08:03)
[2020-06-17] MEDS: FLUTICASONE PROPIONATE 0.05% NA SPR 16 GM BTL (*BKC) 2 SPRAY NASAL (08:04)
[2020-06-17] MEDS: ENOXAPARIN 40 MG/0.4 ML SYRINGE SUB-Q (08:04)
[2020-06-17] MEDS: lisinopriL 20 MG TABLET PO (08:04)
[2020-06-17] MEDS: SODIUM CHLORIDE 0.9% IV 1,000 ML 75 ML IV CONT ×2 (09:22→22:56)
[2020-06-17] MEDS: MORPHINE SULFATE (*CRX) 2 MG/ML INJ IV PUSH (11:45)
--- NOTE | 2020-06-17 12:44 | WPDGICN ---
Assessment and Plan Assessment and plan (1) Acute cholecystitis: Onset Date: ~05/15/20 Code(s): K81.0 - Acute cholecystitis Status: Acute Assessment and Plan: had surgery yesterday and noted small stones by IOC, still pain today with elevated lft's will do ERCP tomorrow to assess bile duct and remove stones keep holding eliquis (2) Pancreatitis, gallstone: Code(s): K85.10 - Biliary acute pancreatitis without necrosis or infection Status: Acute Assessment and Plan: on presentation (3) Choledocholithiasis: Code(s): K80.50 - Calculus of bile duct without cholangitis or cholecystitis without obstruction Status: Acute Assessment and Plan: ercp tomorrow (4) Leukocytosis: Code(s): D72.829 - Elevated white blood cell count, unspecified Status: Acute Assessment and Plan: she had bacteremia during recent hospitalization, treated with iv antibiotics and PTC drain, now had GB removed and will need to do ercp will cover GNR with imipenen given worsening leukocytosis (5) Bacteremia: Code(s): R78.81 - Bacteremia Status: Acute Assessment and Plan: previous hospitalization (6) Current use of fdc anticoagulation: Code(s): Z79.01 - MCFP (current) use of anticoagulants Status: Chronic Assessment and Plan: on hold (7) History of CVA with residual deficit: Code(s): I69.30 - Unspecified sequelae of cerebral infarction Status: Chronic GI Consult Note Consult date/time: 06/17/20 12:44 Reason for consult: cholangitis with recent lap luis and choledocholithiasis by IOC HPI: Ashly Larry is a 85 year old female who was recently admitted to the hospital for sepsis and bacteremia due to acute cholecystitis. Patient had a percutaneous cholecystectomy tube placement on 05/19/20 because was acutely ill and too sick for surgery, treated medically, Dr Holder was also involved and eventually discharged home. Recently her drain fell out and finally she underwent laparoscopic cholecystectomy with intraoperative cholangiogram (reviewed) that showed cluster of multiple small gallstones at the distal aspect of the mildly dilated common bile duct but without high-grade obstruction with contrast passing into the duodenum. Today she is complaining of ruq pain, bili is normal but transminases 100's, also had elevated lipase Review of Systems Constitutional: Constitutional: Reports weakness Eyes: Eyes: Denies blurry vision ENT: Reports Normal hearing present Cardiovascular: Cardiovascular: Denies chest pain Respiratory: Respiratory: Denies cough Gastrointestinal: Gastrointestinal: Reports abdominal pain Genitourinary: Genitourinary: Denies hematuria Musculoskeletal: Musculoskeletal: Reports no additional musculoskeletal complaints Integumentary/Breasts: Skin/Breast: Reports system reviewed and no additional complaints, except as docu Neurologic: Reports system reviewed and no additional complaints, except as documented Psychiatric: Psychiatric: Reports no additional psychiatric complaints PMFSH Past Medical History Medical History Arthritis Atrial fibrillation with rapid ventricular response (Unknown) Cerebrovascular accident (~2018) Residual left-sided weakness. COVID-19 (~12/2019) Current use of fdc anticoagulation Hyperlipidemia Hypertension Paroxysmal atrial fibrillation Surgical History Surgical History History of appendectomy History of bilateral cataract extraction History of tubal ligation Family History Family History Mother Alzheimer's dementia Father Lung cancer Social History Social History Social History: The patient lives in [place]. 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
[2020-06-17] MEDS: PANTOPRAZOLE 40 MG TABLET PO (15:11)
--- NOTE | 2020-06-17 15:43 | PM.PNGS ---
Progress Note: A&P Assessment and Plan (1) Leukocytosis: Code(s): D72.829 - Elevated white blood cell count, unspecified Status: Acute Assessment and Plan: WBC count with a significant increase today to 31,000. This is more than you would expect just from surgery, although she is afebrile and had some leukocytosis pre-operatively. Lipase is normal today and pancreatitis seems to be resolving. Incisions looks good. Unclear etiology at this point for the leukocytosis. I discussed this with Dr. Holder. We will continue IV antibiotics. Although he spoke with GI regarding starting Zosyn, due to her allergies and previously tolerating IV Imipenem for previous treatment, we will switch her to Imipenem today. Repeat labs tomorrow morning and monitor closely. (2) Acute cholecystitis: Onset Date: ~05/15/20 Code(s): K81.0 - Acute cholecystitis Status: Acute Assessment and Plan: S/p laparoscopic cholecystectomy. IOC showed common bile duct stones, which were attempted to flush out during surgery, but second cholangiogram still showed CBD stones but without a high-grade obstruction. GI consulted. Pain seems well controlled. She is tolerating a clear liquid diet. Encouraged OOB/IS. Pathology pending. (3) Choledocholithiasis: Code(s): K80.50 - Calculus of bile duct without cholangitis or cholecystitis without obstruction Status: Acute Assessment and Plan: T bili and alk phos normal. AST/ALT remain elevated. GI consulted. ERCP possibly tomorrow. (4) Pancreatitis, gallstone: Code(s): K85.10 - Biliary acute pancreatitis without necrosis or infection Status: Acute Assessment and Plan: Lipase elevated prior to surgery, and is normal today. Currently tolerating a clear liquid diet. Could advance to full liquids later today if pain seems controlled. 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 (7) History of CVA with residual deficit: Code(s): I69.30 - Unspecified sequelae of cerebral infarction Status: Chronic Additional Plan I have discussed the plan of care with Dr. Holder. Subjective Subjective Date/Time Seen: 06/17/20 15:43 Post Op day: 1 (lap luis) Patient reports: tolerating liquids well, no flatus, no bowel movement and afebrile Interval history: Patient doing well today. Had some abdominal pain earlier that has improved and is tolerable. No nausea or vomiting, although her daughter reports that she had some nausea earlier today. No other complaints at this time. Afebrile. WBC up to 31,000 today. Review of Systems Review of Systems: All systems reviewed & are unremarkable except as noted in HPI and below Exam Const: General: comfortable, no acute distress, alert and awake Orientation/consciousness: patient oriented x3 Resp: Effort & Inspection: normal respiratory effort Auscultation: clear to auscultation bilaterally Cardio: Rate: regular rate Rhythm: regular rhythm GI: Inspection: incision (Abdominal incisions clean and dry, glue intact.), obesity and other (Right sided TABATHA drain with serosanguineous drainage) GI Palp: Yes Soft to palpation, Yes Tenderness to palpation present (GI) (tender diffusely throughout, worse near incisions), No Guarding due to palpation present (GI) and No Rebound tenderness present Auscultation: normal bowel sounds Skin: General skin exam: normal color Neuro: General: moves all extremities and no focal motor deficits Speech: No Abnormal speech present Extrem: General: no clubbing, cyanosis or edema and no calf tenderness Psych: Mental Status: mental status grossly normal Insight: Fair insight present (Psych) Judgement: Fair judgem
--- NOTE | 2020-06-17 17:50 | PM.IMCN ---
Assessment and Plan Assessment and plan (1) Leukocytosis: Code(s): D72.829 - Elevated white blood cell count, unspecified Status: Acute Assessment and Plan: Repeat UA has been ordered. The patient has a Ortiz catheter. Blood cultures have been ordered. Surgery is following with the patient. Although this is not thought to be any complications due to postop care. Patient does have a TABATHA drain and her incisions are well approximated. (2) Hyponatremia: Code(s): E87.1 - Hypo-osmolality and hyponatremia Status: Acute Assessment and Plan: May be related to dehydration. The tongue is moist so she does not appear to be dehydrated at this time. Will continue to monitor. She has normal saline going out check another BMP. (3) Choledocholithiasis: Code(s): K80.50 - Calculus of bile duct without cholangitis or cholecystitis without obstruction Status: Acute Assessment and Plan: . Surgery has been following. GI has also seeing the patient. Possible ERCP tomorrow. (4) Hyperlipidemia: Code(s): E78.5 - Hyperlipidemia, unspecified Status: Acute Assessment and Plan: atorvastatin is on hold. Patient has elevated liver enzymes. (5) Paroxysmal atrial fibrillation: Code(s): I48.0 - Paroxysmal atrial fibrillation Status: Chronic Assessment and Plan: Patient's amiodarone has been continued. Eliquis is on hold HPI Data of Consult Consult date: 06/17/20 Requesting Physician: rAcenio Holder MD Primary Care Provider: [employer] [facility] Consult Narrative Narrative: Ashly Larry is a 85 year old female Who was seen by Dr. Holder on 06/08/2020. Was a follow-up after recent hospitalization for acute cholecystitis. The patient was seen because her percutaneous cholecystotomy tube that was placed on 05/19/2020. The patient was having increased weakness and increased pain. Patient was using her Vicodin at home. The patient had some labs drawn at her white count was elevated 22.3. The patient had been vomiting since she was discharged from the hospital. The patient was readmitted here yesterday and had and laparoscopic cholecystectomy. Her Eliquis had been on hold for 2 days. However today the patient's [place] count [place] [id number]. Her antibiotics were changed per surgery. The patient was found to have common bile duct stones which were attempted to flush L during surgery. However 2nd cholangiogram showed common bile duct stones over still there but without high-grade obstruction. GI was consulted. Plan for a possible ERCP Tomorrow. Her white count was noted to be 31,800. H&H is 9.0 in 27.7. Platelet count 385. Her sodium is down to 127 today from 130 yesterday. IV fluids were started on the patient. She also had very low urinary output so Ortiz catheter was inserted. Her AST is 100 today and ALT 53. I have been consulted for patient that has been admitted and patient. Date of service 06/17/2020 Review of Systems Review of Systems: All systems reviewed & are unremarkable except as noted in HPI and below Constitutional: Constitutional: Reports as per HPI and Reports no additional constitutional complaints Eyes: Eyes: Reports as per HPI and Reports no additional eye complaints ENT: Reports system reviewed and no additional complaints, except as documented and Reports Normal hearing present Cardiovascular: Cardiovascular: Reports no additional cardiovascular complaints Respiratory: Respiratory: Reports no additional respiratory complaints and Reports no additional respiratory complaints Gastrointestinal: Gastrointestinal: Reports as per HPI and Reports no additional gastrointestinal complaints Musculoskeletal: Musculoskeletal: Reports no additional musculoskeletal complaints Integumentary/Breasts: Skin/Breast: Reports system reviewed and no additional complaints, except as docu and Reports as per HPI Neurologic: Reports system review
[2020-06-17 19:08] LABS: Anion Gap 6 mmol/L (8-16); Blood Urea Nitrogen 17 mg/dL (7-17); Calcium 8.1 mg/dL (8.4-10.2); Carbon Dioxide 22 mmol/L (22-30); Chloride 99 mmol/L (98-107); Estimated CRCL calculation 42 ml/min; Estimated Glomerular Filt Rate 60; Glucose 115 mg/dL (65-105); Potassium 4.8 mmol/L (3.4-5.0); Sodium 127 mmol/L (137-145)
[2020-06-17] MEDS: SIMETHICONE 80 MG TAB.CHEW PO (20:31)
[2020-06-17] MEDS: SENNA/DOCUSATE SODIUM TABLET 2 TAB PO (20:31)
[2020-06-17] MEDS: ONDANSETRON INJ 4 MG/2 ML VIAL IV PUSH (23:35)
[2020-06-18] VITALS (17 sets, daily range): BP systolic 119–153; BP diastolic 63–80; PULSE 63–96; RESP 16–28; TEMP 36.1–37.1; O2SAT 93–100
[2020-06-18 00:32] LABS: Anion Gap 6 mmol/L (8-16); Blood Urea Nitrogen 16 mg/dL (7-17); Carbon Dioxide 24 mmol/L (22-30); Chloride 100 mmol/L (98-107); Estimated CRCL calculation 38 ml/min; Estimated Glomerular Filt Rate 53; Glucose 116 mg/dL (65-105); Potassium 4.2 mmol/L (3.4-5.0); Sodium 130 mmol/L (137-145)
[2020-06-18] MEDS: HYDROcodone/acetaminophen (*CRX) 7.5-325 MG TABLET 1 TAB PO (03:27)
[2020-06-18 05:42] LABS: Basophils Percent Auto 0.1 % (0.2-1.2); Eosinophils Percent Auto 0.1 % (0-4.4); Hematocrit 25.5 % (37.0-47.0); Hemoglobin 8.6 g/dL (12.0-15.0); Immature Granulocyte Absolute 0.33 K/mm3 (0.00-0.031); Immature Granulocyte Percent A 1.2 % (0-0.5); Lymphocytes Absolute Auto 1.26 K/mm3 (0.9-3.2); Lymphocytes Percent Auto 4.6 % (18.3-44.2); Mean Corpuscular HGB Conc 33.7 g/dl (32-36); Mean Corpuscular Hemoglobin 30.5 pg (26-34); Mean Corpuscular Volume 90.4 fl (80-100); Mean Platelet Volume 9.4 fl (7.4-10.4); Monocytes Absolute Auto 1.7 K/mm3 (0.1-0.6); Neutrophils Absolute Auto 24.4 K/mm3 (1.3-6.7); Platelet Count Result 538 k/mm3 (150-375); Red Blood Count 2.82 M/mm3 (4.2-5.4); Red Cell Distribution Width 14.3 % (11.5-14.5); White Blood Count 27.7 K/mm3 (4.5-10.0)
[2020-06-18 05:57] LABS: Alanine Aminotransferase 22 U/L (4-35); Albumin Level 2.6 g/dL (3.5-5.1); Alkaline Phosphatase 115 U/L (38-126); Anion Gap 5 mmol/L (8-16); Aspartate Amino Transferase 50 U/L (14-36); Bilirubin,Total 0.4 mg/dL (0.2-1.3); Blood Urea Nitrogen 16 mg/dL (7-17); Calcium 7.7 mg/dL (8.4-10.2); Carbon Dioxide 23 mmol/L (22-30); Chloride 100 mmol/L (98-107); Estimated CRCL calculation 38 ml/min; Estimated Glomerular Filt Rate 53; Glucose 137 mg/dL (65-105); Lipase 317 U/L (23-300); Magnesium 1.8 mg/dL (1.6-2.3); Potassium 4.5 mmol/L (3.4-5.0); Sodium 128 mmol/L (137-145)
[2020-06-18 06:32] LABS: Add Urine Microscopic? YES; Appearance Urine Cloudy (Clear); Bacteria Urine Trace /hpf; Bilirubin Urine Negative (Negative); Blood Urine 3+ (Negative); Color Urine Amber (Yellow); Glucose Urine UA Negative (Negative); Ketones Urine Trace mg/dL (Negative); Leukocyte Esterase Ur Trace LEU/UL (Negative); Mucus Urine Few /lpf; Nitrate Urine Negative (Negative); Protein Urine 2+ mg/dL (Negative); RBC Urine >75 /hpf (0-2); Specific Grav Ur 1.025 (1.001-1.035); Squamous Epithelial Cell Urine Rare /hpf (Few); WBC Urine 31-50 /hpf
[2020-06-18] MEDS: FLUTICASONE PROPIONATE 0.05% NA SPR 16 GM BTL (*BKC) 2 SPRAY NASAL (08:51)
[2020-06-18] MEDS: AMIODARONE HCL 100 MG TABLET PO (08:52)
[2020-06-18] MEDS: MORPHINE SULFATE (*CRX) 2 MG/ML INJ IV PUSH (08:54)
--- NOTE | 2020-06-18 10:36 | PM.IMPN ---
Progress Note: A&P Assessment and Plan (1) Leukocytosis: Code(s): D72.829 - Elevated white blood cell count, unspecified Status: Acute Assessment and Plan: Likely related to acute cholecystitis although other sources such as urinary vs pulmonary or lower GI are less likely but not excludible at this time. UA suspicious for UTI although asymptomatic. UCx and BCx obtained and pending has been ordered. Recently treated for bacteremia last month with IV imipenem. Recently had 5 day course of cefdinir per General Surgery last week. Await UCx and BCx Agree with Imipenem for now Monitor daily labs Tailor antibiotics to culture Consider further imaging of abd/chest if persistent leukocytosis (2) Hyponatremia: Code(s): E87.1 - Hypo-osmolality and hyponatremia Status: Acute Assessment and Plan: Possibly due to dehydration although possibly SIADH. Continue normal saline for now Monitor closely Labs tomorrow (3) Choledocholithiasis: Code(s): K80.50 - Calculus of bile duct without cholangitis or cholecystitis without obstruction Status: Acute Assessment and Plan: On IO. Surgery has been following. GI consulted with plans for possible ERCP today Await further rec from GI, General Surgery (4) Pancreatitis, gallstone: Code(s): K85.10 - Biliary acute pancreatitis without necrosis or infection Status: Acute Assessment and Plan: 2/2 above. GI and General Surgery following. Lipase mildly elevated today. Further management per GI, General Surgery (5) Hyperlipidemia: Code(s): E78.5 - Hyperlipidemia, unspecified Status: Acute Assessment and Plan: LFTs elevated this stay, but improving Continue to hold statin (6) Paroxysmal atrial fibrillation: Code(s): I48.0 - Paroxysmal atrial fibrillation Status: Chronic Assessment and Plan: Normal rate Continue home amiodarone Eliquis held; rec resuming once okay with primary service s/p surgery Additional Plan Thank you for allowing the Hospitalist team to care for this patient during their stay. We will continue to follow with you. Please call with any questions Subjective Date/time seen: 06/18/20 10:36 This is a Hospitalist Consult Progress Note Interval history: Patient is a 85 yo F with history of A. fib (on amiodarone, Eliquis), past CVA, COVID 19 infection in 12/2019, HTN, among other comorbid conditions who recently was admitted and discharged from here for acute cholecystitis and septic shock 05/18-05/27 who is here for acute cholecystitis POD 2 lap luis, pancreatitis, and leukocytosis. Hospitalist service consulted for medical management of comorbid conditions. Patient has diffuse abdominal pain. No N/v, but daughter in room notes belching since procedure two days ago. No other complaints at the moment. Denies f/c/s, cp/palpitations, sob/cough, dysuria, hematuria, cloudy urine, calf pain/swelling. Review of Systems Review of Systems: All systems reviewed & are unremarkable except as noted in HPI and below Exam Narrative: Exam Narrative: General: Patient elderly, frail appearing, resting supine in bed with head raised in no acute distress, but acutely ill appearing. Daughter in room at time of visit. HEENT: Normocephalic, EOMI, oral mucosa moist. Cardiovascular: Rate and rhythm are regular. No notable murmur, rub, or gallop. Tele shows apparent sinus rhythm, occasional PVCs vs artifact noted; asymptomatic Respiratory: Mild coarse breath sounds in right anterior lung field; otherwise CTA. Non-labored breathing. On 2L O2 at time of visit Abdomen: Soft, diffusely ttp but more so on right side, mildly distended. Incisions c/d/i, no drainage. Hypoactive
--- NOTE | 2020-06-18 10:56 | PM.PNGS ---
Progress Note: A&P Assessment and Plan (1) Leukocytosis: Code(s): D72.829 - Elevated white blood cell count, unspecified Status: Acute Assessment and Plan: WBC count still up today to 27,000. This is more than you would expect just from surgery, although she is afebrile and had some leukocytosis pre-operatively. Lipase is slightly up today at 317 and pancreatitis seems to be resolving. Incisions looks good. Unclear etiology at this point for the leukocytosis. She is now on Imipenem to give broader spectrum of coverage in veiw of the CBD stones, planned ERCP, and possible UTI. Repeat labs tomorrow morning and monitor closely. (2) Acute cholecystitis: Onset Date: ~05/15/20 Code(s): K81.0 - Acute cholecystitis Status: Resolved Assessment and Plan: S/p laparoscopic cholecystectomy. IOC showed common bile duct stones, which were attempted to flush out during surgery, but second cholangiogram still showed CBD stones but without a high-grade obstruction. GI consulted. Pain seems well controlled. She is tolerating a clear liquid diet. Encouraged OOB/IS. Pathology pending. (3) Choledocholithiasis: Code(s): K80.50 - Calculus of bile duct without cholangitis or cholecystitis without obstruction Status: Acute Assessment and Plan: T bili and alk phos normal. AST remains elevated. GI consulted. ERCP today. (4) Pancreatitis, gallstone: Code(s): K85.10 - Biliary acute pancreatitis without necrosis or infection Status: Acute Assessment and Plan: Lipase elevated prior to surgery, and is again sl up to317 today. Currently tolerating a clear liquid diet. Could advance to full liquids later today if pain seems controlled and ERCP goes well. (5) Paroxysmal atrial fibrillation: Code(s): I48.0 - Paroxysmal atrial fibrillation Status: Chronic Assessment and Plan: As per hospitalist, possibly resume Eliquis [address] after [address] if Dr. Nunez agrees. 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 (7) History of CVA with residual deficit: Code(s): I69.30 - Unspecified sequelae of cerebral infarction Status: Chronic (8) UTI (urinary tract infection): Code(s): N39.0 - Urinary tract infection, site not specified Status: Acute Assessment and Plan: Await cultures. This was a cath specimen. Patient probably already covered by use of Imipenem. Additional Plan I have discussed the plan of care with Dr. Nunez and Dr. Abbott who will cover the weekend. Subjective Subjective Date/Time Seen: 06/18/20 10:56 Post Op day: 2 ( Stable postop day 2. Status post lap luis with IOC.) Patient reports: still having pain ( some in the right upper quadrant) Interval history: Nurse reports patient requested pain medication and since she is NPO received morphine. Dr. Torrez is planning for ERCP today at about 1:30 p.m. Patient currently NPO. Will order a dose of MiraLax for after the procedure since patient has not yet had a bowel movement post surgery. Patient states she tolerated a clear liquid diet at supper last night and has had no vomiting. Review of Systems Review of Systems: All systems reviewed & are unremarkable except as noted in HPI and below Gastrointestinal: Gastrointestinal: Reports abdominal pain ( Mild right upper quadrant), Denies nausea and Denies vomiting Genitourinary: Comments: Ortiz catheter still in place with reasonable urine output overnight Neurologic: Denies Abnormal speech present Exam Const: General: comfortable, no acute distress, alert and awake Resp: Effort & Inspection: normal respiratory effort Auscultation: clear to auscultation bilaterally Cardio: Rate: regular rate Rhythm: regular rhythm GI: Inspection: incision (Abdo
--- NOTE | 2020-06-18 12:05 | PC.NURSE ---
Patient sent to GI lab via stretcher with GI lab staff.
[2020-06-18] MEDS: LACTATED RINGERS 1,000 ML 150 ML IV CONT (12:22)
--- NOTE | 2020-06-18 12:26 | WPDANESEPPF ---
Anes - Initial Pre Proc Eval Procedure: Operation Date: 06/16/20 12:00 Proposed Procedures p Laparoscopic Cholecystectomy, Possible Intra Operative Cholangiograms, Possible Open - Arcenio Holder MD Operation Date: 06/18/20 13:15 Proposed Procedures p Endoscopic Retro Cholangiopancreatogram - Jin Rivera MD Date/Time: 06/18/20 12:26 Surgeon: Arcenio Holder MD Pre Op Diagnosis: recent acute cholecystitis with cholelithiasis Patient Data Age: 85 Gender: F Height: 5 ft 3 in Weight: 84.9 kg Last Vital Signs Temp 36.4 C L 06/18/20 12:16 Pulse 86 06/18/20 12:16 Resp 20 06/18/20 12:16 BP 144/71 H 06/18/20 12:16 Pulse Ox 99 06/18/20 12:16 Allergies Allergy/AdvReac Type Severity Reaction Status Date / Time Penicillins Allergy Mild Itching Verified 06/16/20 17:16 Sulfa (Sulfonamide Allergy Hives Verified 06/16/20 17:16 Antibiotics) tramadol AdvReac Nausea and Verified 06/16/20 17:16 Vomiting Home Medications Medication Instructions Recorded Confirmed Type Eliquis 5 mg BID 05/18/20 06/16/20 History amiodarone 100 mg PO DAILY 05/18/20 06/16/20 History atorvastatin 40 mg PO HS 05/18/20 06/16/20 History fluticasone propionate 2 spray INTRANASAL DAILY 05/18/20 06/16/20 History lisinopril 20 mg PO DAILY 05/18/20 06/16/20 History docusate sodium 100 mg PO Q12HR #30 cap 05/27/20 06/16/20 Rx pantoprazole [Protonix] 20 mg PO QAM 28 Days #28 tablet 06/01/20 06/16/20 Rx polyethylene glycol 3350 [Miralax] 17 g PO QAM PRN 30 Days #1 ea 06/01/20 06/16/20 Rx hydrocodone 7.5 mg-acetaminophen 1 tablet PO Q6H PRN #20 tablet 06/07/20 06/16/20 Rx 325 mg tablet aspirin 81 mg PO DAILY 06/16/20 06/16/20 History Laboratory Tests 06/17/20 06/17/20 06/17/20 18:17 18:17 18:36 WBC RBC Hgb Hct MCV MCH MCHC RDW Plt Count MPV Immature Gran % (Auto) Neut % (Auto) Lymph % (Auto) [place] % (Auto) Eos % (Auto) Baso % (Auto) Lymph # (Auto) [place] # (Auto) Eos # (Auto) Baso # (Auto) Abs Immat Gran (auto) Absolute Neuts (auto) Absolute Nucleated RBC Nucleated RBC % Sodium 127 mmol/L L mmol/L (137-145) Potassium 4.8 mmol/L mmol/L (3.4-5.0) Chloride 99 mmol/L mmol/L (98-107) Carbon Dioxide 22 mmol/L mmol/L (22-30) Anion Gap 6 mmol/L L mmol/L (8-16) BUN 17 mg/dL mg/dL (7-17) Creatinine 0.90 mg/dL mg/dL (0.7-1.0) Estim Creat Clear Calc 42 ml/min ml/min Estimated GFR 60 (59 - ) Glucose 115 mg/dL H mg/dL (65-105) Serum Osmolality Pending Calcium 8.1 mg/dL L mg/dL (8.4-10.2) Magnesium Total Bilirubin Direct Bilirubin AST ALT Alkaline Phosphatase Total Protein Albumin Lipase Urine Color Urine Appearance Urine pH Ur Specific Mackey Urine Protein Urine Glucose (UA) Urine Ketones Ur Blood (Man) Urine Nitrate Urine Bilirubin Urine Urobilinogen Leukocyte Esterase Rfl Urine RBC Urine WBC Ur Squamous Epith Cells Urine Bacteria Hyaline Casts Urine Mucus Urine Osmolality Pending 06/17/20 06/18/20 06/18/20 23:40 05:19 05:19 WBC 27.7 K/mm3 H K/mm3 (4.5-10.0) RBC 2.82 M/mm3 L M/mm3 (4.2-5.4) Hgb 8.6 g/dL L g/dL (12.0-15.0) Hct 25.5 % L % (37.0-47.0) MCV 90.4 fl D fl (80-100
--- NOTE | 2020-06-18 13:18 | PCPTNOTE ---
Attempted PT eval. Pt in GI lab for procedure. Will try again tomorrow.
--- NOTE | 2020-06-18 13:47 | PC.NURSE ---
On 06/18/20, the student, [Hector Salazar], provided care and completed [facility] documentation on this patient. I have reviewed the student's documentation and agree with the findings.
--- NOTE | 2020-06-18 15:00 | PC.NURSE ---
Patient returned from GI lab via stretcher with GI lab staff. No distress noted. Resting comfortably.
[2020-06-18] MEDS: SIMETHICONE 80 MG TAB.CHEW PO ×2 (17:24→20:31)
[2020-06-18] MEDS: SODIUM CHLORIDE 0.9% IV 1,000 ML 75 ML IV CONT (17:25)
[2020-06-18] MEDS: SENNA/DOCUSATE SODIUM TABLET 2 TAB PO (20:31)
[2020-06-19] VITALS (9 sets, daily range): BP systolic 119–143; BP diastolic 55–71; PULSE 62–78; RESP 16–18; TEMP 36.1–36.4; O2SAT 96–97
[2020-06-19 05:32] LABS: Basophils Percent Auto 0.1 % (0.2-1.2); Hematocrit 25.5 % (37.0-47.0); Hemoglobin 8.5 g/dL (12.0-15.0); Immature Granulocyte Absolute 0.22 K/mm3 (0.00-0.031); Lymphocytes Absolute Auto 0.94 K/mm3 (0.9-3.2); Lymphocytes Percent Auto 4.2 % (18.3-44.2); Mean Corpuscular HGB Conc 33.3 g/dl (32-36); Mean Corpuscular Hemoglobin 30.1 pg (26-34); Mean Corpuscular Volume 90.4 fl (80-100); Mean Platelet Volume 9.3 fl (7.4-10.4); Monocytes Absolute Auto 1.2 K/mm3 (0.1-0.6); Monocytes Percent Auto 5.5 % (2.6-8.5); Neutrophils Absolute Auto 19.9 K/mm3 (1.3-6.7); Neutrophils Percent Auto 89.2 % (45.5-73.1); Platelet Count Result 533 k/mm3 (150-375); Red Blood Count 2.82 M/mm3 (4.2-5.4); Red Cell Distribution Width 14.3 % (11.5-14.5); White Blood Count 22.3 K/mm3 (4.5-10.0)
[2020-06-19 05:47] LABS: Alanine Aminotransferase 19 U/L (4-35); Albumin Level 2.6 g/dL (3.5-5.1); Alkaline Phosphatase 127 U/L (38-126); Anion Gap 3 mmol/L (8-16); Aspartate Amino Transferase 40 U/L (14-36); Bilirubin,Total 0.6 mg/dL (0.2-1.3); Blood Urea Nitrogen 16 mg/dL (7-17); Calcium 7.8 mg/dL (8.4-10.2); Carbon Dioxide 25 mmol/L (22-30); Chloride 101 mmol/L (98-107); Estimated CRCL calculation 47 ml/min; Estimated Glomerular Filt Rate > 60; Glucose 134 mg/dL (65-105); Magnesium 1.9 mg/dL (1.6-2.3); Potassium 4.6 mmol/L (3.4-5.0); Sodium 129 mmol/L (137-145)
--- NOTE | 2020-06-19 07:30 | WPDANESPN ---
Anes - Prog Note Post-Op Date/Time: 06/19/20 07:30 Cardiovascular status: normal Respiratory status: normal Airway patency: baseline Mental status: baseline Post-Op hydration status: normal Vital Signs: Last Vital Signs Temp 36.4 C L 06/19/20 06:39 Pulse 72 06/19/20 06:39 Resp 18 06/19/20 06:39 BP 143/71 H 06/19/20 06:39 Pulse Ox 96 06/19/20 06:39 Pain Score (VAS): 2 I/O: Intake & Output 06/18/20 06/18/20 06/19/20 15:59 23:59 07:59 Intake Total 1350 600 100 Output Total 30 375 660 Balance 1320 225 -560 Laboratory Tests 06/19/20 05:24 06/19/20 05:24 06/19/20 06/19/20 05:24 05:24 WBC 22.3 H RBC 2.82 L Hgb 8.5 L Hct 25.5 L MCV 90.4 MCH 30.1 MCHC 33.3 RDW 14.3 Plt Count 533 H MPV 9.3 Immature Gran % (Auto) 1.0 H Neut % (Auto) 89.2 H Lymph % (Auto) 4.2 L [place] % (Auto) 5.5 Eos % (Auto) 0.0 Baso % (Auto) 0.1 L Lymph # (Auto) 0.94 [place] # (Auto) 1.2 H Eos # (Auto) 0.0 Baso # (Auto) 0.0 Abs Immat Gran (auto) 0.22 H Absolute Neuts (auto) 19.9 H Absolute Nucleated RBC 0.0 Nucleated RBC % 0.0 Sodium 129 L Potassium 4.6 Chloride 101 Carbon Dioxide 25 Anion Gap 3 L BUN 16 Creatinine 0.80 Estim Creat Clear Calc 47 Estimated GFR > 60 Glucose 134 H Calcium 7.8 L Magnesium 1.9 Total Bilirubin 0.6 AST 40 H ALT 19 Alkaline Phosphatase 127 H Total Protein 6.0 L Albumin 2.6 L Microbiology 06/17/20 18:15 Blood Blood Culture - Preliminary 06/17/20 18:15 Blood Blood Culture - Preliminary Post-procedural complaints: none Patient Feedback: Patient satisfied with anesthetic care.
[2020-06-19] MEDS: ENOXAPARIN 40 MG/0.4 ML SYRINGE SUB-Q (08:07)
[2020-06-19] MEDS: PHARMACIST COMMUNICATION ORDER 1 EACH XX (08:07)
[2020-06-19] MEDS: PANTOPRAZOLE 40 MG TABLET PO (08:07)
[2020-06-19] MEDS: AMIODARONE HCL 100 MG TABLET PO (08:07)
[2020-06-19] MEDS: SIMETHICONE 80 MG TAB.CHEW PO ×4 (08:07→20:10)
[2020-06-19] MEDS: FLUTICASONE PROPIONATE 0.05% NA SPR 16 GM BTL (*BKC) 2 SPRAY NASAL (08:07)
--- NOTE | 2020-06-19 11:08 | PM.PNGS ---
Progress Note: A&P Assessment and Plan (1) Choledocholithiasis: Code(s): K80.50 - Calculus of bile duct without cholangitis or cholecystitis without obstruction Status: Acute Assessment and Plan: Patient continues to improve Advanced diet as tolerated to low-fat diet Increase activity Possibly home in the next 1-2 days if leukocytosis improves and patient continues to improve (2) Pancreatitis, gallstone: Code(s): K85.10 - Biliary acute pancreatitis without necrosis or infection Status: Acute (3) Hyponatremia: Code(s): E87.1 - Hypo-osmolality and hyponatremia Status: Acute Subjective Subjective Date/Time Seen: 06/19/20 11:08 Interval history: Patient continuing to improve. No fevers. Tolerating clear liquids. No nausea or vomiting. Exam GI: Inspection: non-distended, incision (Intact with glue) and other (TABATHA drain with minimal serosanguineous output) GI Palp: Yes Tenderness to palpation present (GI) (Incisional) and No Guarding due to palpation present (GI) Auscultation: normal bowel sounds Objective Data Vital Signs Vital Signs: Vital Signs - 24 hr 06/18/20 12:16 06/18/20 13:45 06/18/20 13:55 Temperature 36.4 C L 36.4 C 36.4 C Pulse Rate 86 96 93 Respiratory Rate 20 28 H 19 Blood Pressure 144/71 H 153/79 H 135/67 Pulse Oximetry 99 100 100 06/18/20 14:05 06/18/20 14:15 06/18/20 14:25 Temperature 36.3 C L Pulse Rate 80 74 72 Respiratory Rate 17 21 H 16 Blood Pressure 136/76 137/78 125/67 Pulse Oximetry 100 100 96 06/18/20 14:35 06/18/20 14:45 06/18/20 16:00 Temperature 36.4 C Pulse Rate 68 76 63 Respiratory Rate 16 17 Blood Pressure 122/66 136/74 Pulse Oximetry 95 93 06/18/20 20:00 06/18/20 21:36 06/19/20 00:00 Temperature 36.4 C Pulse Rate 74 77 67 Respiratory Rate 16 Blood Pressure 140/74 Pulse Oximetry 97 06/19/20 04:00 06/19/20 06:39 06/19/20 08:07 Temperature 36.4 C L Pulse Rate 72 72 72 Respiratory Rate 18 Blood Pressure 143/71 H Pulse Oximetry 96 Intake/Output Intake/Output: Intake & Output 06/16/20 06/17/20 06/18/20 06/19/20 23:59 23:59 23:59 23:59 Intake Total 1120 3090 1950 110 Output Total 150 490 505 660 Balance 970 2600 1445 -550 Meds/Results Medications: Active Medications Generic Name Dose Route Start Last Admin Trade Name Freq PRN Reason Stop Dose Admin Acetaminophen 500 mg 06/16/20 16:55 Acetaminophen 500 Mg Tablet PO Q6H PRN Mild Pain (1-3) or Fever Hydrocodone Bitart/Acetaminophen 1 tab 06/16/20 16:55 06/17/20 20:31 Hydrocodone/Acetaminophen (*Crx) 5-325 Mg Tablet PO 1 tab Q6H PRN Administration Pain Rated 4-6 Hydrocodone Bitart/Acetaminophen 1 tab 06/16/20 16:55 06/18/20 03:27 Hydrocodone/Acetaminophen (*Crx) 7.5-325 Mg Tablet PO 1 tab Q6H PRN Administration Pain Rated 7-10 Amiodarone HCl 100 mg 06/17/20 09:00 06/19/20 08:07 Amiodarone Hcl 100 Mg Tablet PO 100 mg DAILY SAVANNA Administration Diphenhydramine HCl 25 mg 06/16/20 16:55 Diphenhydramine Hcl Inj 50 Mg/Ml Vial IV PUSH Q6H PRN Itching Enoxaparin Sodium 40 mg 06/17/20 09:00 06/19/20 08:07 Enoxaparin 40 Mg/0.4 Ml Syringe SUB-Q 40 mg DAILY SAVANNA Administration Fluticasone Propionate 2 spray 06/17/20 09:00 06/19/20 08:07 Fluticasone Propionate 0.05% Na Spr 16 Gm Btl (*Bkc) NASAL 2 spray DAILY SAVANNA Administration Hydralazine HCl 10 mg 06/17/20 08:12 Hydralazine Hcl 20 Mg/Ml Vial IV PUSH Q6H PRN Blood Pressure - High Imipenem/Cilastatin Sodium 500 mg in 100 mls @ 300 mls/hr 06/17/20 22:00 06/19/20 05:08 Primaxin 500 Mg/D5w 100 Ml IVPB 200 mls/hr Q8HR SAVANNA Administration Morphine Sulfate 2 mg 06/16/20 16:55 06/18/20 08:54 Morphine Sulfate (*Crx) 2 Mg/Ml Inj IV PUSH 2 mg Q4H PRN Administration Pain Rated 4-6 Naloxone HCl 0.1 mg 06/16/20 16:55 Naloxone Hcl 0.4 Mg/Ml Vial IV PUS
--- NOTE | 2020-06-19 12:21 | WPDGIPROGNO ---
Progress Note: A&P Assessment and Plan (1) Choledocholithiasis: Code(s): K80.50 - Calculus of bile duct without cholangitis or cholecystitis without obstruction Status: Acute Assessment and Plan: ercp yesterday with sphincterotomy and removal of stones doing much better today ok to advance to soft diet (she is feeling better) (2) Pancreatitis, gallstone: Code(s): K85.10 - Biliary acute pancreatitis without necrosis or infection Status: Acute Assessment and Plan: no more nausea (3) Leukocytosis: Code(s): D72.829 - Elevated white blood cell count, unspecified Status: Acute Assessment and Plan: trending down, on antibiotics continue to monitor (4) Paroxysmal atrial fibrillation: Code(s): I48.0 - Paroxysmal atrial fibrillation Status: Chronic Assessment and Plan: hold eliquis for 5 days after ercp (5) Elevated liver enzymes: Code(s): R74.8 - Abnormal levels of other serum enzymes Status: Acute Assessment and Plan: trending down Subjective Date/time seen: 06/19/20 12:21 Interval history: ERCP yesterday with successful removal of stones and today is doing much better, less pain in ruq, tolerating liquid diet, no nausea. Family is at bedside Review of Systems Review of Systems: All systems reviewed & are unremarkable except as noted in HPI and below Exam Const: General: comfortable, no acute distress, alert and awake HENMT: General nose exam: Normal nares present Eyes: General: appearance normal, both eyes and all related structures Neck: Neck: supple Resp: Effort & Inspection: normal respiratory effort Auscultation: clear to auscultation bilaterally Cardio: Rate: regular rate Rhythm: regular rhythm GI: Inspection: incision (Abdominal incisions clean and dry, glue intact.), obesity and other (Right sided TABATHA drain with minimal serosanguineous drainage) GI Palp: Yes Soft to palpation Auscultation: normal bowel sounds Skin: General skin exam: normal color Neuro: General: moves all extremities and no focal motor deficits Speech: normal speech and No Abnormal speech present Extrem: General: normal to inspection, no clubbing, cyanosis or edema and no calf tenderness Psych: Mental Status: mental status grossly normal Insight: Fair insight present (Psych) Judgement: Fair judgement present (Psych) Objective Data Vital Signs Vital Signs: Vital Signs - 24 hr 06/18/20 13:45 06/18/20 13:55 06/18/20 14:05 Temperature 97.6 F 97.6 F 97.4 F L Pulse Rate 96 93 80 Respiratory Rate 28 H 19 17 Blood Pressure 153/79 H 135/67 136/76 Pulse Oximetry 100 100 100 06/18/20 14:15 06/18/20 14:25 06/18/20 14:35 Temperature 97.6 F Pulse Rate 74 72 68 Respiratory Rate 21 H 16 16 Blood Pressure 137/78 125/67 122/66 Pulse Oximetry 100 96 95 06/18/20 14:45 06/18/20 16:00 06/18/20 20:00 Temperature Pulse Rate 76 63 74 Respiratory Rate 17 Blood Pressure 136/74 Pulse Oximetry 93 06/18/20 21:36 06/19/20 00:00 06/19/20 04:00 Temperature 97.6 F Pulse Rate 77 67 72 Respiratory Rate 16 Blood Pressure 140/74 Pulse Oximetry 97 06/19/20 06:39 06/19/20 08:07 Temperature 97.5 F L Pulse Rate 72 72 Respiratory Rate 18 Blood Pressure 143/71 H Pulse Oximetry 96 Intake/Output Intake/Output: Intake & Output 06/16/20 06/17/20 06/18/20 06/19/20 23:59 23:59 23:59 23:59 Intake Total 1120 3090 1950 110 Output Total 150 490 505 660 Balance 970 2600 1445 -550 Meds/Results Medications: Active Medications Generic Name Dose Route Start Last Admin Trade Name Freq PRN Reason Stop Dose Admin Acetaminophen 500 mg 06/16/20 16:55 Acetaminophen 500 Mg Tablet PO Q6H PRN Mild Pain (1-3) or Fever Hydrocodone Bitart/Acetaminophen 1 tab 06/16/20 16:55 06/17/20 20:31 Hydrocodone/Acetaminophen (*Crx) 5-325 Mg Tablet PO 1 tab Q6H PRN Administration Pain Rated 4-6 Hydr
[2020-06-19] MEDS: HYDROcodone/acetaminophen (*CRX) 5-325 MG TABLET 1 TAB PO (12:22)
--- NOTE | 2020-06-19 14:13 | PM.IMPN ---
Progress Note: A&P Assessment and Plan (1) Leukocytosis: Code(s): D72.829 - Elevated white blood cell count, unspecified Status: Acute Assessment and Plan: Likely related to acute cholecystitis although other sources such as urinary vs pulmonary vs lower GI are less likely but not excludible at this time. UA suspicious for UTI although asymptomatic. UCx pending. BCx show NGTD x 2. Recently treated for bacteremia last month with IV imipenem. Recently had 5 day course of cefdinir per General Surgery last week. Patient is afebrile with improving WBC to 22.3k today Agree with Imipenem for now Monitor daily labs Consider further imaging of abd/chest if persistent leukocytosis (2) Hyponatremia: Code(s): E87.1 - Hypo-osmolality and hyponatremia Status: Acute Assessment and Plan: Possibly due to dehydration although possibly SIADH 2/2 pain from recent surgery Monitor closely Labs tomorrow (3) Choledocholithiasis: Code(s): K80.50 - Calculus of bile duct without cholangitis or cholecystitis without obstruction Status: Acute Assessment and Plan: Noted on IOC. GI consulted and performed ERCP on 06/18 with multiple stones removed along with sludge and sphincterotomy. Feeling much better today. Await further rec from GI, General Surgery Per GI rec, hold Eliquis 5 days after ERCP (resume 06/24) (4) Pancreatitis, gallstone: Code(s): K85.10 - Biliary acute pancreatitis without necrosis or infection Status: Acute Assessment and Plan: 2/2 above. GI and General Surgery following. Further management per GI, General Surgery (5) Hyperlipidemia: Code(s): E78.5 - Hyperlipidemia, unspecified Status: Acute Assessment and Plan: LFTs elevated this stay, but improving Continue to hold statin (6) Paroxysmal atrial fibrillation: Code(s): I48.0 - Paroxysmal atrial fibrillation Status: Chronic Assessment and Plan: Normal rate Continue home amiodarone Eliquis held; resume on 06/24 as noted above Additional Plan #Urinary retention: Recommend d/c Ortiz for voiding trial when okay with primary service Thank you for allowing the Hospitalist team to care for this patient during their stay. We will continue to follow with you. Please call with any questions Subjective Date/time seen: 06/19/20 14:13 Interval history: Patient is a 85 yo F with history of A. fib (on amiodarone, Eliquis), past CVA, COVID 19 infection in 12/2019, HTN, among other comorbid conditions who recently was admitted and discharged from here for acute cholecystitis and septic shock 05/18-05/27 who is here for acute cholecystitis POD 3 s/p lap luis, pancreatitis, and leukocytosis. Hospitalist service consulted for medical management of comorbid conditions. Patient feels much better today. A bit tired today after therapy session. Eating/drinking more today. Pain much more reasonable today. Daughter thinks she is 80% back to normal. No BM since Sunday, but passing gas. Patient has no other complaints at the moment. Denies f/c/s, cp/palpitations, sob/cough, issues with Ortiz, hematuria, cloudy urine, calf pain/swelling. Review of Systems Review of Systems: All systems reviewed & are unremarkable except as noted in HPI and below Exam Narrative: Exam Narrative: General: Patient elderly, frail appearing, resting on right side in bed in no acute distress, comfortable appearing. Daughter in room at time of visit. HEENT: Normocephalic, EOMI, oral mucosa moist. Cardiovascular: Rate and rhythm are regular. No notable murmur, rub, or gallop. Tele shows apparent sinus rhythm, occasionally paced rhythm; asymptomatic Respiratory: CTAB anterolateral lung field
[2020-06-19] MEDS: SENNA/DOCUSATE SODIUM TABLET 2 TAB PO (20:10)
[2020-06-20 06:16] LABS: Hematocrit 25.3 % (37.0-47.0); Hemoglobin 8.3 g/dL (12.0-15.0); Mean Corpuscular HGB Conc 32.8 g/dl (32-36); Mean Corpuscular Hemoglobin 30.6 pg (26-34); Mean Corpuscular Volume 93.4 fl (80-100); Platelet Count Result 542 k/mm3 (150-375); Red Blood Count 2.71 M/mm3 (4.2-5.4); Red Cell Distribution Width 14.6 % (11.5-14.5); White Blood Count 16.5 K/mm3 (4.5-10.0)
[2020-06-20 06:37] LABS: Anion Gap 2 mmol/L (8-16); Blood Urea Nitrogen 15 mg/dL (7-17); Calcium 7.9 mg/dL (8.4-10.2); Carbon Dioxide 26 mmol/L (22-30); Chloride 102 mmol/L (98-107); Estimated CRCL calculation 47 ml/min; Estimated Glomerular Filt Rate > 60; Glucose 95 mg/dL (65-105); Magnesium 1.8 mg/dL (1.6-2.3); Potassium 3.9 mmol/L (3.4-5.0); Sodium 130 mmol/L (137-145)
[2020-06-20 06:48] VITALS: BP 137/55; PULSE 70; RESP 16; TEMP 36.4; O2SAT 96
[2020-06-20 08:54] VITALS: PULSE 70
[2020-06-20] MEDS: SIMETHICONE 80 MG TAB.CHEW PO ×4 (08:54→20:21)
[2020-06-20] MEDS: ENOXAPARIN 40 MG/0.4 ML SYRINGE SUB-Q (08:54)
[2020-06-20] MEDS: AMIODARONE HCL 100 MG TABLET PO (08:54)
[2020-06-20] MEDS: PANTOPRAZOLE 40 MG TABLET PO (08:54)
[2020-06-20] MEDS: FLUTICASONE PROPIONATE 0.05% NA SPR 16 GM BTL (*BKC) 2 SPRAY NASAL (08:55)
[2020-06-20] MEDS: HYDROcodone/acetaminophen (*CRX) 5-325 MG TABLET 1 TAB PO ×2 (09:05→17:14)
--- NOTE | 2020-06-20 09:22 | PCPTNOTE ---
Assisted PT w/ treatment at 8:30. Pt ambulated w/ wheeled walker. Pt had flexed posture w/ decreased step length and heel-toe. Pt's knees buckled w/ fatigue.
--- NOTE | 2020-06-20 09:30 | PM.IMPN ---
Progress Note: A&P Assessment and Plan (1) Leukocytosis: Code(s): D72.829 - Elevated white blood cell count, unspecified Status: Acute Assessment and Plan: Likely related to acute cholecystitis although other sources such as pulmonary vs lower GI are less likely but not excludible at this time. UA suspicious for UTI although asymptomatic and UCx negative. BCx show NGTD x 2. Recently treated for bacteremia last month with IV imipenem. Recently had 5 day course of cefdinir per General Surgery last week. Patient is afebrile with improving WBC to 16.5k today Agree with Imipenem for now; will defer further antibiotics to primary service; if antibiotics warranted, consider cefdinir based on prior micro results and allergy list and flagyl for anaerobe coverage Monitor daily labs while inpatient (2) Hyponatremia: Code(s): E87.1 - Hypo-osmolality and hyponatremia Status: Acute Assessment and Plan: Possibly due to dehydration although possibly SIADH 2/2 pain from recent surgery. Improving to 130 today Monitor closely Labs tomorrow should she stay (3) Choledocholithiasis: Code(s): K80.50 - Calculus of bile duct without cholangitis or cholecystitis without obstruction Status: Acute Assessment and Plan: Noted on IOC. GI consulted and performed ERCP on 06/18 with multiple stones removed along with sludge and sphincterotomy. Feeling much better today. Await further rec from GI, General Surgery Per GI rec, hold Eliquis 5 days after ERCP (resume 06/24) (4) Pancreatitis, gallstone: Code(s): K85.10 - Biliary acute pancreatitis without necrosis or infection Status: Acute Assessment and Plan: 2/2 above. GI and General Surgery following. Pain much better; tolerating diet. Further management per GI, General Surgery (5) Hyperlipidemia: Code(s): E78.5 - Hyperlipidemia, unspecified Status: Acute Assessment and Plan: LFTs elevated this stay, but improved Continue to hold statin; likely resume at discharge (6) Paroxysmal atrial fibrillation: Code(s): I48.0 - Paroxysmal atrial fibrillation Status: Chronic Assessment and Plan: Normal rate Continue home amiodarone Eliquis held; resume on 06/24 as noted above Additional Plan #Urinary retention: Voiding trial today; d/c Ortiz and post void bladder scan Thank you for allowing the Hospitalist team to care for this patient during their stay. We will continue to follow with you. Please call with any questions Subjective Date/time seen: 06/20/20 09:30 Interval history: Patient is a 85 yo F with history of A. fib (on amiodarone, Eliquis), past CVA, COVID 19 infection in 12/2019, HTN, among other comorbid conditions who recently was admitted and discharged from here for acute cholecystitis and septic shock 05/18-05/27 who is here for acute cholecystitis POD 4 s/p lap luis, pancreatitis, and leukocytosis. Hospitalist service consulted for medical management of comorbid conditions. Patient feels much better again today. Eating/drinking more today. BMs x 2 since yesterday; nonbloody; no melena. Pain reasonable today. Patient has no other complaints at the moment. Denies f/c/s, cp/palpitations, sob/cough, issues with Ortiz, hematuria, cloudy urine, calf pain/swelling. Review of Systems Review of Systems: All systems reviewed & are unremarkable except as noted in HPI and below Exam Narrative: Exam Narrative: General: Patient elderly, frail appearing, resting on left side in bed in no acute distress, comfortable appearing. HEENT: Normocephalic, EOMI, oral mucosa moist. Cardiovascular: Rate and rhythm are regular. No notable murmur, rub, or gallop. Respiratory: CTAB anterola
--- NOTE | 2020-06-20 10:26 | WPDGIPROGNO ---
Progress Note: A&P Assessment and Plan (1) Choledocholithiasis: Code(s): K80.50 - Calculus of bile duct without cholangitis or cholecystitis without obstruction Status: Acute Assessment and Plan: ercp with sphincterotomy and removal of stones tolerating diet and improving also wbc trending, on antibiotics (2) Pancreatitis, gallstone: Code(s): K85.10 - Biliary acute pancreatitis without necrosis or infection Status: Acute Assessment and Plan: no more nausea (3) Leukocytosis: Code(s): D72.829 - Elevated white blood cell count, unspecified Status: Acute Assessment and Plan: trending down, on antibiotics continue to monitor (4) Paroxysmal atrial fibrillation: Code(s): I48.0 - Paroxysmal atrial fibrillation Status: Chronic Assessment and Plan: hold eliquis for 5 days after ercp (5) Elevated liver enzymes: Code(s): R74.8 - Abnormal levels of other serum enzymes Status: Acute Assessment and Plan: trending down, monitor as outpatient but expect that will continue to improve Subjective Date/time seen: 06/20/20 10:26 Interval history: some discomfort in ruq around TABATHA drain but overall no changes Review of Systems Review of Systems: All systems reviewed & are unremarkable except as noted in HPI and below Exam Const: General: comfortable, no acute distress, alert and awake HENMT: General nose exam: Normal nares present Eyes: General: appearance normal, both eyes and all related structures Neck: Neck: supple Resp: Effort & Inspection: normal respiratory effort Auscultation: clear to auscultation bilaterally Cardio: Rate: regular rate Rhythm: regular rhythm GI: Inspection: incision (Abdominal incisions clean and dry, glue intact.), obesity and other (Right sided TABATHA drain with minimal serosanguineous drainage) GI Palp: Yes Soft to palpation Auscultation: normal bowel sounds Skin: General skin exam: normal color Neuro: General: moves all extremities and no focal motor deficits Speech: normal speech and No Abnormal speech present Extrem: General: normal to inspection, no clubbing, cyanosis or edema and no calf tenderness Psych: Mental Status: mental status grossly normal Insight: Fair insight present (Psych) Judgement: Fair judgement present (Psych) Objective Data Vital Signs Vital Signs: Vital Signs - 24 hr 06/19/20 12:00 06/19/20 14:00 06/19/20 21:47 Temperature 97.0 F L 97.5 F L Pulse Rate 68 62 68 Respiratory Rate 18 16 Blood Pressure 119/55 L 124/66 Pulse Oximetry 96 97 06/19/20 21:51 06/20/20 06:48 06/20/20 08:54 Temperature 97.6 F Pulse Rate 70 70 Respiratory Rate 16 Blood Pressure 137/55 L Pulse Oximetry 97 96 Intake/Output Intake/Output: Intake & Output 06/17/20 06/18/20 06/19/20 06/20/20 23:59 23:59 23:59 23:59 Intake Total 3090 1950 1560 300 Output Total 003 571 1118 600 Balance 2600 1445 400 -300 Meds/Results Medications: Active Medications Generic Name Dose Route Start Last Admin Trade Name Freq PRN Reason Stop Dose Admin Acetaminophen 500 mg 06/16/20 16:55 Acetaminophen 500 Mg Tablet PO Q6H PRN Mild Pain (1-3) or Fever Hydrocodone Bitart/Acetaminophen 1 tab 06/16/20 16:55 06/20/20 09:05 Hydrocodone/Acetaminophen (*Crx) 5-325 Mg Tablet PO 1 tab Q6H PRN Administration Pain Rated 4-6 Hydrocodone Bitart/Acetaminophen 1 tab 06/16/20 16:55 06/18/20 03:27 Hydrocodone/Acetaminophen (*Crx) 7.5-325 Mg Tablet PO 1 tab Q6H PRN Administration Pain Rated 7-10 Amiodarone HCl 100 mg 06/17/20 09:00 06/20/20 08:54 Amiodarone Hcl 100 Mg Tablet PO 100 mg DAILY SAVANNA Administration Diphenhydramine HCl 25 mg 06/16/20 16:55 Diphenhydramine Hcl Inj 50 Mg/Ml Vial IV PUSH Q6H PRN Itching Enoxaparin Sodium 40 mg 06/17/20 09:00 06/20/20 08:54 Enoxaparin 40 Mg/0.4 Ml Syringe SUB-Q 40 mg DAILY SC
--- NOTE | 2020-06-20 11:51 | PM.PNGS ---
Progress Note: A&P Assessment and Plan (1) Choledocholithiasis: Code(s): K80.50 - Calculus of bile duct without cholangitis or cholecystitis without obstruction Status: Acute Assessment and Plan: Will remove drain today Anticipated discharge tomorrow WBC still improving (2) Pancreatitis, gallstone: Code(s): K85.10 - Biliary acute pancreatitis without necrosis or infection Status: Acute (3) Hyponatremia: Code(s): E87.1 - Hypo-osmolality and hyponatremia Status: Acute Subjective Subjective Date/Time Seen: 06/20/20 11:51 Interval history: Tolerating low fat diet. Continuing to improve. Exam GI: Inspection: non-distended, incision (Intact with glue) and other (TABATHA drain with minimal serosanguineous output) GI Palp: Yes Tenderness to palpation present (GI) (Incisional) and No Guarding due to palpation present (GI) Auscultation: normal bowel sounds Objective Data Vital Signs Vital Signs: Vital Signs - 24 hr 06/19/20 12:00 06/19/20 14:00 06/19/20 21:47 Temperature 36.1 C L 36.4 C L Pulse Rate 68 62 68 Respiratory Rate 18 16 Blood Pressure 119/55 L 124/66 Pulse Oximetry 96 97 06/19/20 21:51 06/20/20 06:48 06/20/20 08:54 Temperature 36.4 C Pulse Rate 70 70 Respiratory Rate 16 Blood Pressure 137/55 L Pulse Oximetry 97 96 Intake/Output Intake/Output: Intake & Output 06/17/20 06/18/20 06/19/20 06/20/20 23:59 23:59 23:59 23:59 Intake Total 3090 1950 1560 300 Output Total 638 300 3409 675 Balance 2600 1445 400 -375 Meds/Results Medications: Active Medications Generic Name Dose Route Start Last Admin Trade Name Freq PRN Reason Stop Dose Admin Acetaminophen 500 mg 06/16/20 16:55 Acetaminophen 500 Mg Tablet PO Q6H PRN Mild Pain (1-3) or Fever Hydrocodone Bitart/Acetaminophen 1 tab 06/16/20 16:55 06/20/20 09:05 Hydrocodone/Acetaminophen (*Crx) 5-325 Mg Tablet PO 1 tab Q6H PRN Administration Pain Rated 4-6 Hydrocodone Bitart/Acetaminophen 1 tab 06/16/20 16:55 06/18/20 03:27 Hydrocodone/Acetaminophen (*Crx) 7.5-325 Mg Tablet PO 1 tab Q6H PRN Administration Pain Rated 7-10 Amiodarone HCl 100 mg 06/17/20 09:00 06/20/20 08:54 Amiodarone Hcl 100 Mg Tablet PO 100 mg DAILY SAVANNA Administration Diphenhydramine HCl 25 mg 06/16/20 16:55 Diphenhydramine Hcl Inj 50 Mg/Ml Vial IV PUSH Q6H PRN Itching Enoxaparin Sodium 40 mg 06/17/20 09:00 06/20/20 08:54 Enoxaparin 40 Mg/0.4 Ml Syringe SUB-Q 40 mg DAILY SAVANNA Administration Fluticasone Propionate 2 spray 06/17/20 09:00 06/20/20 08:55 Fluticasone Propionate 0.05% Na Spr 16 Gm Btl (*Bkc) NASAL 2 spray DAILY SAVANNA Administration Hydralazine HCl 10 mg 06/17/20 08:12 Hydralazine Hcl 20 Mg/Ml Vial IV PUSH Q6H PRN Blood Pressure - High Imipenem/Cilastatin Sodium 500 mg in 100 mls @ 300 mls/hr 06/17/20 22:00 06/20/20 06:21 Primaxin 500 Mg/D5w 100 Ml IVPB Infused Q8HR SAVANNA Infusion Morphine Sulfate 2 mg 06/16/20 16:55 06/18/20 08:54 Morphine Sulfate (*Crx) 2 Mg/Ml Inj IV PUSH 2 mg Q4H PRN Administration Pain Rated 4-6 Naloxone HCl 0.1 mg 06/16/20 16:55 Naloxone Hcl 0.4 Mg/Ml Vial IV PUSH Q2M PRN Opiate Reversal Ondansetron HCl 4 mg 06/16/20 16:55 06/17/20 23:35 Ondansetron Inj 4 Mg/2 Ml Vial IV PUSH 4 mg Q4H PRN Administration Nausea And Vomiting Pantoprazole Sodium 40 mg 06/18/20 09:00 06/20/20 08:54 Pantoprazole 40 Mg Tablet PO 40 mg QAM SAVANNA Administration Polyethylene Glycol 17 gm 06/16/20 16:55 Polyethylene Glycol 3350 17 Gm Powd.Pack PO QAM PRN Constipation Senna/Docusate Sodium 2 tab 06/16/20 21:00 06/19/20 20:10 Senna/Docusate Sodium Tablet PO 2 tab HS SAVANNA Administration Simethicone 80 mg 06/17/20 21:00 06/20/20 08:54 Simethicone 80 Mg Tab.Chew PO 80 mg QID SAVANNA Administration Ra
[2020-06-20 14:00] VITALS: BP 126/47; PULSE 72; RESP 16; TEMP 36.5; O2SAT 98
[2020-06-20 20:00] VITALS: PULSE 72; RESP 16; O2SAT 98
[2020-06-20] MEDS: SENNA/DOCUSATE SODIUM TABLET 2 TAB PO (20:21)
[2020-06-20 21:10] LABS: Glucose Point of Care 110 (65-105)
[2020-06-20 21:28] VITALS: BP 131/54; PULSE 69; RESP 18; TEMP 36.4; O2SAT 97
[2020-06-21 01:25] VITALS: BP 133/55; PULSE 73; RESP 16; TEMP 36.6; O2SAT 96
[2020-06-21 05:44] LABS: Basophils Percent Auto 0.3 % (0.2-1.2); Eosinophils Absolute Auto 0.2 K/mm3 (0-0.3); Eosinophils Percent Auto 1.5 % (0-4.4); Hematocrit 25.4 % (37.0-47.0); Hemoglobin 8.2 g/dL (12.0-15.0); Immature Granulocyte Absolute 0.12 K/mm3 (0.00-0.031); Immature Granulocyte Percent A 0.8 % (0-0.5); Lymphocytes Absolute Auto 1.25 K/mm3 (0.9-3.2); Lymphocytes Percent Auto 8.4 % (18.3-44.2); Mean Corpuscular HGB Conc 32.3 g/dl (32-36); Mean Corpuscular Hemoglobin 29.8 pg (26-34); Mean Corpuscular Volume 92.4 fl (80-100); Mean Platelet Volume 9.5 fl (7.4-10.4); Monocytes Absolute Auto 1.6 K/mm3 (0.1-0.6); Monocytes Percent Auto 10.9 % (2.6-8.5); Neutrophils Absolute Auto 11.6 K/mm3 (1.3-6.7); Neutrophils Percent Auto 78.1 % (45.5-73.1); Platelet Count Result 544 k/mm3 (150-375); Red Blood Count 2.75 M/mm3 (4.2-5.4); Red Cell Distribution Width 14.4 % (11.5-14.5); White Blood Count 14.9 K/mm3 (4.5-10.0)
[2020-06-21 05:54] LABS: Osmolality, Urine 493 mOsm/kg (50-1200)
[2020-06-21 06:11] LABS: Anion Gap -1 mmol/L (8-16); Blood Urea Nitrogen 13 mg/dL (7-17); Calcium 7.6 mg/dL (8.4-10.2); Carbon Dioxide 29 mmol/L (22-30); Chloride 101 mmol/L (98-107); Estimated CRCL calculation 53 ml/min; Estimated Glomerular Filt Rate > 60; Glucose 97 mg/dL (65-105); Magnesium 1.7 mg/dL (1.6-2.3); Sodium 129 mmol/L (137-145)
[2020-06-21 06:35] LABS: Potassium 3.7 mmol/L (3.4-5.0)
--- NOTE | 2020-06-21 08:37 | PM.IMPN ---
Progress Note: A&P Assessment and Plan (1) Leukocytosis: Code(s): D72.829 - Elevated white blood cell count, unspecified Status: Acute Assessment and Plan: Likely related to acute cholecystitis although other sources such as pulmonary vs lower GI are less likely but not excludible at this time. UA suspicious for UTI although asymptomatic and UCx negative. BCx show NGTD x 2. Recently treated for bacteremia last month with IV imipenem. Recently had 5 day course of cefdinir per General Surgery last week. Patient is afebrile with improving WBC to 14.9k today Agree with Imipenem for now; will defer further antibiotics to primary service; if antibiotics warranted, consider cefdinir based on prior micro results and allergy list and consider flagyl for anaerobe coverage Monitor daily labs while inpatient (2) Hyponatremia: Code(s): E87.1 - Hypo-osmolality and hyponatremia Status: Acute Assessment and Plan: Possibly due to dehydration although possibly SIADH 2/2 pain from recent surgery. Stable at 129 Monitor during stay Rec repeat labs as outpatient (3) Choledocholithiasis: Code(s): K80.50 - Calculus of bile duct without cholangitis or cholecystitis without obstruction Status: Acute Assessment and Plan: Noted on IOC. GI consulted and performed ERCP on 06/18 with multiple stones removed along with sludge and sphincterotomy. Feeling much better today. Await further rec from GI, General Surgery Per GI rec, hold Eliquis 5 days after ERCP (resume 06/24) (4) Pancreatitis, gallstone: Code(s): K85.10 - Biliary acute pancreatitis without necrosis or infection Status: Acute Assessment and Plan: 2/2 above. GI and General Surgery following. Pain much better; tolerating diet. Further management per GI, General Surgery (5) Hyperlipidemia: Code(s): E78.5 - Hyperlipidemia, unspecified Status: Acute Assessment and Plan: LFTs elevated this stay, but improved Continue to hold statin; likely resume at discharge (6) Paroxysmal atrial fibrillation: Code(s): I48.0 - Paroxysmal atrial fibrillation Status: Chronic Assessment and Plan: Normal rate Continue home amiodarone Eliquis held; resume on 06/24 as noted above Additional Plan #Urinary retention: Urinating fine after d/c [facility] Thank you for allowing the Hospitalist team to care for this patient during their stay. We will continue to follow with you. Please call with any questions Subjective Date/time seen: 06/21/20 08:37 This is a Hospitalist Consult Progress Note Interval history: Patient is a 85 yo F with history of A. fib (on amiodarone, Eliquis), past CVA, COVID 19 infection in 12/2019, HTN, among other comorbid conditions who recently was admitted and discharged from here for acute cholecystitis and septic shock 05/18-05/27 who is here for acute cholecystitis POD 5 s/p lap luis, pancreatitis, and leukocytosis. Hospitalist service consulted for medical management of comorbid conditions. Patient feels much better again today. Tolerating diet well. Having BMs; nonbloody; no melena. Pain reasonable today if not resolved. Patient has no other complaints at the moment. Denies f/c/s, cp/palpitations, sob/cough, dysuria, hematuria, cloudy urine, calf pain/swelling. Review of Systems Review of Systems: All systems reviewed & are unremarkable except as noted in HPI and below Exam Narrative: Exam Narrative: General: Patient elderly, frail appearing, resting supine in bed in no acute distress, comfortable appearing. Initially sleeping but easily arousable HEENT: Normocephalic, EOMI, oral mucosa moist. Cardiovascular: Rate and rhythm are regular. No notable murmur, rub,
[2020-06-21 09:51] VITALS: PULSE 60
[2020-06-21] MEDS: FLUTICASONE PROPIONATE 0.05% NA SPR 16 GM BTL (*BKC) 2 SPRAY NASAL (09:51)
[2020-06-21] MEDS: AMIODARONE HCL 100 MG TABLET PO (09:51)
[2020-06-21] MEDS: ENOXAPARIN 40 MG/0.4 ML SYRINGE SUB-Q (09:52)
[2020-06-21] MEDS: SIMETHICONE 80 MG TAB.CHEW PO ×3 (09:52→17:08)
[2020-06-21] MEDS: PANTOPRAZOLE 40 MG TABLET PO (09:52)
--- NOTE | 2020-06-21 15:00 | WPDGIPROGNO ---
Progress Note: A&P Assessment and Plan (1) Choledocholithiasis: Code(s): K80.50 - Calculus of bile duct without cholangitis or cholecystitis without obstruction Status: Acute Assessment and Plan: ercp with sphincterotomy and removal of stones tolerating diet wbc trending, afebrile, she was getting antibiotics ok to go home by GI standpoint (2) Pancreatitis, gallstone: Code(s): K85.10 - Biliary acute pancreatitis without necrosis or infection Status: Acute Assessment and Plan: no more nausea (3) Leukocytosis: Code(s): D72.829 - Elevated white blood cell count, unspecified Status: Acute Assessment and Plan: trending down (4) Paroxysmal atrial fibrillation: Code(s): I48.0 - Paroxysmal atrial fibrillation Status: Chronic Assessment and Plan: hold eliquis for 5 days after ercp (5) Elevated liver enzymes: Code(s): R74.8 - Abnormal levels of other serum enzymes Status: Acute Subjective Date/time seen: 06/21/20 15:00 Interval history: daughter at bedside, patient is feeling better, TABATHA drain removed, less pain Review of Systems Review of Systems: All systems reviewed & are unremarkable except as noted in HPI and below Exam Const: General: comfortable and no acute distress HENMT: General nose exam: Normal nares present Eyes: General: appearance normal, both eyes and all related structures Neck: Neck: supple Resp: Auscultation: clear to auscultation bilaterally Cardio: Rate: regular rate GI: GI Palp: Yes Soft to palpation and No Tenderness to palpation present (GI) Auscultation: normal bowel sounds Skin: General skin exam: normal color Neuro: Speech: normal speech Extrem: General: normal to inspection Psych: Mental Status: mental status grossly normal Objective Data Vital Signs Vital Signs: Vital Signs - 24 hr 06/20/20 20:00 06/20/20 21:28 06/21/20 01:25 Temperature 97.6 F 97.9 F Pulse Rate 72 69 73 Respiratory Rate 16 18 16 Blood Pressure 131/54 L 133/55 L Pulse Oximetry 98 97 96 06/21/20 09:51 Temperature Pulse Rate 60 Respiratory Rate Blood Pressure Pulse Oximetry Intake/Output Intake/Output: Intake & Output 06/18/20 06/19/20 06/20/20 06/21/20 23:59 23:59 23:59 23:59 Intake Total 1950 1560 900 570 Output Total 505 1160 750 550 Balance 1445 400 150 20 Meds/Results Medications: Active Medications Generic Name Dose Route Start Last Admin Trade Name Freq PRN Reason Stop Dose Admin Acetaminophen 500 mg 06/16/20 16:55 Acetaminophen 500 Mg Tablet PO Q6H PRN Mild Pain (1-3) or Fever Hydrocodone Bitart/Acetaminophen 1 tab 06/16/20 16:55 06/20/20 17:14 Hydrocodone/Acetaminophen (*Crx) 5-325 Mg Tablet PO 1 tab Q6H PRN Administration Pain Rated 4-6 Hydrocodone Bitart/Acetaminophen 1 tab 06/16/20 16:55 06/18/20 03:27 Hydrocodone/Acetaminophen (*Crx) 7.5-325 Mg Tablet PO 1 tab Q6H PRN Administration Pain Rated 7-10 Amiodarone HCl 100 mg 06/17/20 09:00 06/21/20 09:51 Amiodarone Hcl 100 Mg Tablet PO 100 mg DAILY SAVANNA Administration Diphenhydramine HCl 25 mg 06/16/20 16:55 Diphenhydramine Hcl Inj 50 Mg/Ml Vial IV PUSH Q6H PRN Itching Enoxaparin Sodium 40 mg 06/17/20 09:00 06/21/20 09:52 Enoxaparin 40 Mg/0.4 Ml Syringe SUB-Q 40 mg DAILY SAVANNA Administration Fluticasone Propionate 2 spray 06/17/20 09:00 06/21/20 09:51 Fluticasone Propionate 0.05% Na Spr 16 Gm Btl (*Bkc) NASAL 2 spray DAILY SAVANNA Administration Hydralazine HCl 10 mg 06/17/20 08:12 Hydralazine Hcl 20 Mg/Ml Vial IV PUSH Q6H PRN Blood Pressure - High Imipenem/Cilastatin Sodium 500 mg in 100 mls @ 300 mls/hr 06/17/20 22:00 06/21/20 15:10 Primaxin 500 Mg/D5w 100 Ml IVPB Infused Q8HR SAVANNA Infusion Morphine Sulfate 2 mg 06/16/20 16:55 06/18/20 08:54 Morphine Sulfate (*Crx) 2 Mg/Ml Inj IV PUSH 2 mg
--- NOTE | 2020-06-21 16:05 | PM.DS ---
DS: Admitting Diagnosis Admitting Diagnosis Admitting Diagnosis: acute on chronic cholecystitis with cholelithiasis DS: Discharge Diagnosis Discharge Diagnosis (1) Elevated liver enzymes: Code(s): R74.8 - Abnormal levels of other serum enzymes Status: Acute Assessment and Plan: These are gradually improving and we will recheck them in 1 week as an outpatient. We suspect that after the ERCP these will come back to normal. (2) UTI (urinary tract infection): Code(s): N39.0 - Urinary tract infection, site not specified Status: Acute Assessment and Plan: Base was on antibiotics when a cath specimen was sent. This came back negative and the patient was treated for approximately 5 days with imipenem because of her common bile duct stones. Hopefully urinary tract infection will be resolved. Will watch for further symptoms and repeat UA if needed. (3) Hyponatremia: Onset Date: Unknown Code(s): E87.1 - Hypo-osmolality and hyponatremia Status: Acute Assessment and Plan: Patient has had hyponatremia since her admission last month for sepsis. Unknown etiology. Internal medicine could not figure out why she had a low sodium and it never reached a level greater than 130 during this hospital stay. They suspected mild SIDH. I doubt if it was related to her surgery because she had hyponatremia for her entire admission last month when she was septic also. It may be related to one of her current standard medications. Will ask her primary care doctor to continue to follow this and make other recommendations as he sees fit. I did encourage her daughter to put some salt on her food for a while and we will see how this changes over the next week. Prior to this they have been keeping her without any salt. (4) Leukocytosis: Code(s): D72.829 - Elevated white blood cell count, unspecified Status: Acute Assessment and Plan: Gradually improving with a discharge WBC count of 14,000 today. Repeat CBC is plan for 1 week. Will stopper antibiotics this point and have the family call if she begins running a fever or has signs of infection such as redness about the incisions. 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 (5) Pancreatitis, gallstone: Code(s): K85.10 - Biliary acute pancreatitis without necrosis or infection Status: Acute Assessment and Plan: This seems to have clear with a remote recent lipase being normal. She did have a cholecystectomy and ERCP so the pancreatitis was most likely on the basis of gallstones moving from her gallbladder into the common duct and causing problems. (6) Choledocholithiasis: Code(s): K80.50 - Calculus of bile duct without cholangitis or cholecystitis without obstruction Status: Acute Assessment and Plan: Doing well postop day 3. Status post ERCP with stone removal. Dr. Nunez asked just to keep her off Eliquis for 5 days following ERCP so she will resume the Eliquis on Sunday of this week. (7) Generalized weakness: Code(s): R53.1 - Weakness Status: Acute Assessment and Plan: Patient has had a stroke she received physical therapy during this hospital stay and they recommended continuing outpatient therapy. Her daughter would like to bring her to the hospital for this so they can get her out house. She has been ease easily able to get her in and out of the car and get her here so we will order this for an outpatient and have them evaluate and treat to try to help strengthen her. (8) Atelectasis: Code(s): J98.11 - Atelectasis Status: Resolved Assessment and Plan: patient has been using her incentive spirometer. We will continue this as an outpatient until she is improved. (9) Right middle lobe pulmonary nodule: Code(s): R91.1 - Puja
== END 2020-06-21 17:50 | disposition home or self-care (01) | DRG 418 ==
LOC: ANHSURGERY 15:02 → ANH2MED 15:02
PROVIDERS: Anesthesiology; Internal Medicine Gastroenterology; Nurse Practitioner; Nurse Practitioner Family; Physician Assistant; Surgery; Admitting Provider Surgery; Visit Provider Surgery
PROC: 0FT44ZZ Resection of Gallbladder, Percutaneous Endoscopic Approach (ICD-10-PCS; CPT 47562; principal; 2020-06-16 12:00)
PROC: 0FC98ZZ Extirpation of Matter from Common Bile Duct, Via Natural or Artificial Opening Endoscopic (ICD-10-PCS; CPT 43260; principal; 2020-06-18 13:15)
DX: K85.10 Biliary acute pancreatitis without necrosis or infection (principal); E87.1 Hypo-osmolality and hyponatremia; K80.66 Calculus of gallbladder and bile duct with acute and chronic cholecystitis without obstruction; I69.351 Hemiplegia and hemiparesis following cerebral infarction affecting right dominant side; J98.11 Atelectasis; I48.20 Chronic atrial fibrillation, unspecified; K57.10 Diverticulosis of small intestine without perforation or abscess without bleeding; D72.829 Elevated white blood cell count, unspecified; I10 Essential (primary) hypertension; E78.5 Hyperlipidemia, unspecified; R91.1 Solitary pulmonary nodule; M19.90 Unspecified osteoarthritis, unspecified site; Z79.01 Long term (current) use of anticoagulants; Z98.42 Cataract extraction status, left eye; Z98.41 Cataract extraction status, right eye; Z90.49 Acquired absence of other specified parts of digestive tract
CPT/HCPCS: 36415; 74300; 74329; 80048; 80053; 80076; 81001; 82948; 83690; 83735; 83930; 83935; 84134; 85025; 85027; 85610; 85730; 86850; 86900; 86901; 87040; 87086; 88304; 97110; 97116; 97161; 97530; A9270; J0690; J0743; J1100; J1170; J1650; J1885; J2270; J2405; J2704; J2710; J3010; J7030; J7120; Q9966

== ENCOUNTER 2020-06-28 10:34 | Outpatient (CLI) | payer MEDICARE, SELFPAY ==
[2020-06-28 11:25] LABS: Basophils Absolute Auto 0.1 K/mm3 (0.0-0.1); Eosinophils Absolute Auto 0.2 K/mm3 (0-0.3); Eosinophils Percent Auto 2.6 % (0-4.4); Hematocrit 29.5 % (37.0-47.0); Hemoglobin 9.4 g/dL (12.0-15.0); Immature Granulocyte Absolute 0.03 K/mm3 (0.00-0.031); Immature Granulocyte Percent A 0.4 % (0-0.5); Lymphocytes Absolute Auto 1.73 K/mm3 (0.9-3.2); Lymphocytes Percent Auto 21.8 % (18.3-44.2); Mean Corpuscular HGB Conc 31.9 g/dl (32-36); Mean Corpuscular Hemoglobin 29.9 pg (26-34); Mean Corpuscular Volume 93.9 fl (80-100); Mean Platelet Volume 9.9 fl (7.4-10.4); Monocytes Absolute Auto 0.9 K/mm3 (0.1-0.6); Monocytes Percent Auto 10.8 % (2.6-8.5); Neutrophils Percent Auto 63.4 % (45.5-73.1); Platelet Count Result 468 k/mm3 (150-375); Red Blood Count 3.14 M/mm3 (4.2-5.4); Red Cell Distribution Width 14.4 % (11.5-14.5); White Blood Count 7.9 K/mm3 (4.5-10.0)
[2020-06-28 11:29] LABS: Alanine Aminotransferase 20 U/L (4-35); Alkaline Phosphatase 92 U/L (38-126); Anion Gap 6 mmol/L (8-16); Aspartate Amino Transferase 30 U/L (14-36); Bilirubin,Total 0.6 mg/dL (0.2-1.3); Blood Urea Nitrogen 7 mg/dL (7-17); Calcium 7.8 mg/dL (8.4-10.2); Carbon Dioxide 28 mmol/L (22-30); Chloride 102 mmol/L (98-107); Estimated Glomerular Filt Rate > 60; Glucose 116 mg/dL (65-105); Potassium 3.1 mmol/L (3.4-5.0); Sodium 136 mmol/L (137-145)
== END 2020-06-28 10:35 | disposition home or self-care (01) ==
PROVIDERS: Visit Provider Physician Assistant
DX: E87.1 Hypo-osmolality and hyponatremia (principal); R74.8 Abnormal levels of other serum enzymes; K81.0 Acute cholecystitis
CPT/HCPCS: 36415; 80053; 85025

== ENCOUNTER 2020-08-10 10:00 | Outpatient (RCR) | payer MEDICARE, SELFPAY ==
--- NOTE | 2020-07-06 11:34 | PTOPEVAL ---
PHYSICAL THERAPY EVALUATION AND PLAN OF CARE 07-06-20 Thank you for referring Ashly Larry to [facility], for the diagnosis of weakness, s/p hospitalization.? She is scheduled to be seen for therapy? 2 x/week for 5 weeks. Please review, sign, date and return this plan of care KIERSTEN. I agree with and certify that the following plan of care is medically necessary. Referring Physician Date Attending Provider: Arcenio Holder MD *PT Outpatient Evaluation Document 07/06/20 10:30 SIERRA (Rec: 07/06/20 11:33 SIERRA [id number]) Outpatient Past Medical History Past Medical History Source of Past Medical History Recalled from Previous Visit, Confirmed with Patient/Family Neurological History Hx Cerebrovascular Accident (CVA) Yes: 2019 Hx Other Neurological Disorders Yes: L sided weakness Cardiovascular History Hx Atrial Fibrillation Yes Hx Hypercholesterolemia Yes: meds Hx Hypertension Yes: meds Hx Pacemaker Yes: DR. AYALA Hx Other Cardiac Disorders Yes: WELT SLASHER DR. CREWS Respiratory History Hx Respiratory Disorders No Significant History Gastrointestinal History Hx Appendectomy Yes Hx Cholecystectomy Yes Hx Gall Bladder Disease Yes: SEPTIC SHOCK - HOSPITALIZED 05/17/20 Hx Gastroesophageal Reflux Disease Yes Genitourinary History Hx Urinary Tract Infection Yes: HX OF NONE RECENTLY Musculoskeletal History Hx Arthritis Yes Hx Crutches or Walker Use Yes: walker AND WHEELCHAIR Query Text:If Yes, Enter Crutches, Walker, or Both in the Comment Hx Other Musculoskeletal Disorders Yes: left knee torn meniscus Hematological History Hx Hematological Disorders No Significant History Endocrine History Hx Endocrine Disorders No Significant History HEENT History Hx Cataracts Yes: jose extraction Hx Dental Problems Yes: FULL UPPER & LOWER DENTURES Hx Other HEENT Disorders Yes: READING GLASSES Integumentary History Hx Skin Disorders No Significant History Reproductive History Hx Post Menopausal Yes Hx Tubal Ligation Yes Psychosocial History Hx Psychiatric Disorders No Significant History Pain History History of Any Previous or Ongoing No Significant History Instance of Pain Anesthesia History Hx Anesthesia Reactions No Significant History Other History Hx Recent Acute Infection Yes: CHOLECYSTITIS/SEPTIC SHOCK 05/18/2020 Hx Other Medical Conditions had covid 12/2019- weakness and fatigue ~ 2wk; had COVID 1st vaccine only, in hospital at time for 2nd Evaluation Information Problem Diagnosis
--- NOTE | 2020-08-10 10:39 | PTOPEVAL ---
PHYSICAL THERAPY DISCHARGE 08-10-20 Refer to the clinical summary below for her status with today's reevaluation, compared to the initial eval. She has improved in all areas, the goals were achieved; discharge PT services. Thank you for referring Ashly Larry to [facility].? Please review, sign, date and return this Discharge KIERSTEN. I agree with and certify that the following plan of care is medically necessary. Referring Physician Date Attending Provider: Arcenio Holder MD Document 08/10/20 09:59 SIERRA (Rec: 08/10/20 10:39 SIERRA [id number]) Assessment Status Discharge Subjective Information Ahsly reports: is walking Query Text:As Reported By Patient/ better, has been doing her Family exercises at home;need to be able to walk better; is going to [place] and doing the steps there; have not had any falls; is only using the wheelchair in community for distances/ not using in her home; Pain Assessment Timing of Pain Assessment Timing of Pain Assessment Assessment Self Report Self Report Pain Level 0 Pain Score Pain Score 0: Self Report Lower Extremity Muscle Strength Testing General Lower Extremity Strength Gross Lower Extremity Strength functional strength testing: supine: SLR R and L x 20 reps; hip abduction R and L x 20 reps; Transfer Assessment Chair Transfer Assessment Sit to Stand Chair Transfer Ability Independent Chair Transfer Comments -inconsistently uses incorrect technique--plops into chair without backing up and does not use her arms to control; -sit/stand transfer with use of 1 UE x 3 reps; unable to perform without UE use; Bed Mobility Assessment Bed Mobility Bed Type Mat Overall Bed Mobility Ability Independent Cues Needed for Bed Mobility None Bed Mobility Comments indep with sit to supine, with good time to perform, without laboring; supine to sitting with increased time and laboring-- at home, has a bed rail to do transfer; Balance Assessment Time Up Go (TUG) Timed Up and Go Test (TUG) (Seconds) 32 Assistive Devices Walker, Wheeled Gait Assessment Gait Assessment Ambulation Assistive Devices Walker, Wheeled Ambulation Direction Forward Cues Needed For Ambulation
== END 2020-08-10 11:44 | disposition home or self-care (01) ==
LOC: ANHPT 10:00
PROVIDERS: Visit Provider Surgery
DX: I69.30 Unspecified sequelae of cerebral infarction (principal); R53.1 Weakness
CPT/HCPCS: 97110; 97116; 97161

== ENCOUNTER 2021-01-16 13:07 | Observation (INO) | payer MEDICARE, SELFPAY ==
[2021-01-16] VITALS (7 sets, daily range): BP systolic 125–148; BP diastolic 65–84; PULSE 59–71; RESP 14–20; TEMP 36.2–36.6; O2SAT 94–100; BMI 25.7
--- NOTE | ~2021-01-16 | CT_ITS ---
EXAMINATION: CT brain wo con DATE: 01/16/2021 18:04 INDICATION: Syncopal episode TECHNIQUE: Computed tomography (CT) of the head was performed without intravenous contrast. The mA wa s adjusted according to patient size. Iterative reconstruction technique was employed. Exam dose: 60 5.33 mGy-cm total exam DLP. COMPARISON: 11/02/2018 CT brain FINDINGS: There is an old infarct in the posterior left parietal area, not present on 11/02/2018. There are prominent bilateral carotid siphon internal carotid artery calcifications. There is nonspecific prominent patchy diminished attenuation of the cerebral white matter, likely due to chronic small vessel ischemic changes. No intracranial mass lesion or hemorrhage, midline shift or mass effect effect is detected. There is no subdural or epidural hematoma. There is moderately prominent cerebral and cerebellar atrophy. There is prominent mucoperiosteal thickening of the left sphenoid sinus. The included mastoid air cells and paranasal sinuses are otherwise normally developed and aerated. No fracture or bone destruction of the cranial vault. IMPRESSION: Old posterior left parietal infarct, not present on 10/29/2018 Cerebral atherosclerosis and chronic small vessel ischemic changes of the cerebral white matter Reviewed, dictated and finalized at [facility]. Reviewed, dictated and finalized at location A. LE ROUNDER IMPRESSION: Old posterior left parietal infarct, not present on 10/29/2018 Cerebral atherosclerosis and chronic small vessel ischemic changes of the cereb ral white matter
--- NOTE | ~2021-01-16 | US_ITS ---
EXAMINATION: US carotid duplex BI DATE: 01/17/2021 08:03 INDICATION: Syncope. TECHNIQUE: Grayscale, color Doppler, and pulsed Doppler images of the cervical carotid arteries were obtained. The degree of vessel stenosis is placed in one of the following categories: normal, <50%, 5 0-69%, >=70% but less than near-occlusion, near-occlusion, or total occlusion. Note that percent sten osis relative to normal distal artery lumen diameter is indirectly measured from velocity measurement s as described by Reinaldo, et al. Radiology 2003; 229:340-346. COMPARISON: Ultrasound 11/03/2018 FINDINGS: RIGHT: The right common carotid artery (CCA) peak systolic velocity (PSV) is 75 cm/s. The right internal car otid artery (ICA) PSV is 66 cm/s. The right ICA end-diastolic velocity (EDV) is 13 cm/s. The right IC A/CCA PSV ratio is 0.9. Grayscale and color Doppler images yield an estimate of <50% diameter reducti on from plaque in the ICA. There is antegrade flow in the right vertebral artery. LEFT: The left CCA PSV is 103 cm/s. The left ICA PSV is 65 cm/s. The left ICA EDV is 18 cm/s. The left ICA/ CCA PSV ratio is 0.6. Grayscale and color Doppler images yield an estimate of <50% diameter reduction from plaque in the ICA. There is antegrade flow in the left vertebral artery. IMPRESSION: 1. <50% stenosis in the right internal carotid artery. 2. <50% stenosis in the left internal carotid artery. Reviewed, dictated and finalized at location [facility]. CIATE PROFESSOR OF ART
--- NOTE | ~2021-01-16 | XR_ITS ---
XR chest 1V DATE: 01/16/2021 18:05 INDICATION: Syncope. Unresponsive. TECHNIQUE: AP chest COMPARISON: 05/20/2020 portable AP chest FINDINGS: Left-sided transvenous pacemaker device with leads overlying right atrium and right ventric le. There is cardiomegaly. There is mild aortic unfolding. No hilar or mediastinal enlargement. No pulmonary infiltrate or consolidation, pleural effusion or pulmonary vascular congestion or pneumo thorax. Diffuse osteopenia. IMPRESSION: Cardiomegaly Dual-lead transvenous pacemaker device No active pulmonary disease Reviewed, dictated and finalized at location A. CH THERAPY ASSISTANT
--- NOTE | 2021-01-16 13:15 | ECG_ITS ---
Measurements Intervals [place] Rate: 67 P: 49 [place]: 164 QRS: -38 QRSD: 101 T: 29 QT: 430 QTc: 455 Interpretive Statements SINUS RHYTHM LEFT AXIS DEVIATION DELAYED PRECORDIAL R/S TRANSITION LOW QRS VOLTAGE IN PRECORDIAL LEADS BORDERLINE T WAVE ABNORMALITY- ANTERIOR LEADS BASELINE ARTIFACT- I, II, III, AVR, AVL, AVF, V1-V6 BORDERLINE ECG Electronically Signed On 01-16-2021 13:29:51 [employer] by Wilbert Tristan D.O.
--- NOTE | 2021-01-16 13:46 | ED.GENADULT ---
HPI - General Adult General Chief complaint: Syncope Stated complaint: AMS/SYNCOPAL Time Seen by Provider: 01/16/21 13:15 Source: patient History of Present Illness HPI narrative: Patient is a 85 y/o male brought in by EMS for syncope. Patient was reportedly at a restaurant and went to bathroom. She passed out in bathroom. This was witnessed by her daughter. There is no known alleviating or exacerbating factor. She only passed out briefly. She had some vomiting afterwards and appeared confused. She has no recollection of what happened, but denies any complaint at this time. Related Data Home Medications Medication Instructions Recorded Confirmed acetaminophen 650 mg Q4-6H PRN 01/16/21 01/16/21 albuterol sulfate 2 puff INHALATION DAILY PRN 01/16/21 01/16/21 amiodarone 100 mg PO DAILY 01/16/21 01/16/21 apixaban [Eliquis] 5 mg PO BID 01/16/21 01/16/21 aspirin [Aspirin Low Dose] 81 mg PO DAILY 01/16/21 01/16/21 atorvastatin 40 mg PO HS 01/16/21 01/16/21 docusate sodium 100 mg PO DAILY PRN 01/16/21 01/16/21 fluticasone propionate 1 spray INTRANASAL BID 01/16/21 01/16/21 lisinopril 20 mg PO DAILY 01/16/21 01/16/21 Allergies Allergy/AdvReac Type Severity Reaction Status Date / Time Penicillins Allergy Unknown Verified 01/16/21 19:17 Sulfa (Sulfonamide AdvReac Unknown Verified 01/16/21 19:17 Antibiotics) tramadol AdvReac Nausea Verified 01/16/21 19:17 Review of Systems Constitutional: Constitutional: Denies chills, Denies fever(s), Denies headache(s) and Denies weakness Eyes: Eyes: Denies blurry vision ENT: Denies headache(s) and Denies neck pain Cardiovascular: Cardiovascular: Denies chest pain and Denies dyspnea Respiratory: Respiratory: Denies cough and Denies dyspnea Gastrointestinal: Gastrointestinal: Denies abdominal pain, Denies diarrhea, Denies nausea and Denies vomiting Genitourinary: Genitourinary: Denies hematuria and Denies dysuria Musculoskeletal: Musculoskeletal: Denies back pain and Denies neck pain Neurologic: Reports as per HPI, Reports syncope, Denies headache(s) and Denies weakness PMFSH Past Medical History Medical History (Updated 01/16/21 @ 22:54 by Hailee Gordon MD) Arthritis Atrial fibrillation paroxysmal on anticoagulation Dementia History of COVID-19 History of CVA (cerebrovascular accident) 2019 affected judgment no focal weakness HTN (hypertension), malignant Hyperlipidemia Pacemaker Surgical History Surgical History (Updated 01/16/21 @ 19:28 by Cordelia Kurtz NP) H/O tubal ligation History of appendectomy History of cataract extraction Hx of cholecystectomy Family History Family History Mother Alzheimer disease Father Lung cancer Social History Social History (Updated 01/16/21 @ 19:35 by Cordelia Kurtz NP) Social History: The patient lives in [place] and has constant care 24/7 around the clock. The patient has 6 children. She is . 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 No alcohol, tobacco, or illicit drugs. Her daughter Viridiana farley is her healthcare power employment law attorney for healthcare. The patient does not want to live in a vegetative state. Code status full code Smoking status: Never smoker Second hand tobacco smoke exposure: No Alcohol intake: never Substance use: never Substance use type: does not use Spiritual care concerns: No Exam Const: General: no acute distress and well developed Orientation/consciousness: oriented to person, oriented to time and confusion HENMT: Head: normocephalic Ears: external ears normal General nose exam: Normal external nose present Eyes: General: appearance normal, both eyes and all related structures Conjunctivae: conjunctivae normal Neck: Neck: normal visual inspection and full ROM Chest: Chest palpation & inspection: normal inspection of the chest and no tenderness Resp: Effort & Inspection: normal respirat
[2021-01-16 14:11] LABS: Basophils Absolute Auto 0.1 K/mm3 (0.0-0.1); Basophils Percent Auto 0.7 % (0.2-1.2); Eosinophils Absolute Auto 0.1 K/mm3 (0-0.3); Eosinophils Percent Auto 1.2 % (0-4.4); Hematocrit 38.8 % (37.0-47.0); Hemoglobin 12.6 g/dL (12.0-15.0); Immature Granulocyte Absolute 0.02 K/mm3 (0.00-0.031); Immature Granulocyte Percent A 0.3 % (0-0.5); Lymphocytes Absolute Auto 1.49 K/mm3 (0.9-3.2); Lymphocytes Percent Auto 22.3 % (18.3-44.2); Mean Corpuscular HGB Conc 32.5 g/dl (32-36); Mean Corpuscular Hemoglobin 32.6 pg (26-34); Mean Corpuscular Volume 100.5 fl (80-100); Mean Platelet Volume 10.1 fl (7.4-10.4); Monocytes Absolute Auto 0.7 K/mm3 (0.1-0.6); Monocytes Percent Auto 10.2 % (2.6-8.5); Neutrophils Absolute Auto 4.4 K/mm3 (1.3-6.7); Neutrophils Percent Auto 65.3 % (45.5-73.1); Platelet Count Result 246 k/mm3 (150-375); Red Blood Count 3.86 M/mm3 (4.2-5.4); White Blood Count 6.7 K/mm3 (4.5-10.0)
[2021-01-16 14:31] LABS: Alanine Aminotransferase 27 U/L (4-35); Albumin Level 3.8 g/dL (3.5-5.1); Alkaline Phosphatase 56 U/L (38-126); Anion Gap 7 mmol/L (8-16); Aspartate Amino Transferase 32 U/L (14-36); Bilirubin,Total 1.7 mg/dL (0.2-1.3); Blood Urea Nitrogen 17 mg/dL (7-17); Calcium 8.9 mg/dL (8.4-10.2); Carbon Dioxide 27 mmol/L (22-30); Chloride 101 mmol/L (98-107); Estimated CRCL calculation 40 ml/min; Estimated Glomerular Filt Rate 60; Glucose 146 mg/dL (65-110); Potassium 3.7 mmol/L (3.4-5.0); Sodium 135 mmol/L (137-145)
[2021-01-16 14:42] LABS: Troponin I < 0.012 ng/mL (0.000-0.034)
[2021-01-16 17:18] LABS: Troponin I < 0.012 ng/mL (0.000-0.034)
--- NOTE | 2021-01-16 18:15 | ADMGEN ---
This patient, Ashly Larry, was admitted to Medical Room 248-. Patient/family oriented to hospital policies and general routines including ID bracelet, bed and alarms, visiting hours, pain management, procedures, bathroom and other care routines, personal items, smoking policy, room service/diet, and visiting hours. Information on how to activate the Rapid Response Team has been discussed. Patient/Family are encouraged to report perceived risks to care and to ask questions if they do not understand what they are told or what they should do.
--- NOTE | 2021-01-16 19:08 | PM.IMHP ---
H&P: HPI History of Present Illness Date/Time: 01/16/21 19:08 this is a 85-year-old female patient who has had multiple episodes of having a syncopal episode. The patient was recently at [facility] approximately 3 weeks ago where she was treated for diverticulosis. She had a syncopal episode at that time. The patient also had a syncopal episode previously and received a pacemaker. The patient was here in the past 2013 where she also had a syncopal episode and had a full workup at that time. The patient since then has had a history of having a CVA in 2019. The patient also has dementia and gets restless at night. The patient has 24/7 care in her house. The patient went out to eat with her daughters today and after going to the restroom the patient had a syncopal episode where she leaned over on to the toilet paper roll but did not fall on the floor. The patient was briefly unresponsive. She said that she did not feel dizzy or have any fever chills. No nausea vomiting or diarrhea. The patient denies any discomfort. According to the daughter the patient has inappropriate feelings to pain since her stroke. Patient was confused after her syncopal episode. The patient did not hit her head. The patient has been seen in this hospital in the past however this chart needs to be merged with her old records. Sodium 135. Patient's troponins are negative x2. Chest x-ray was read as cardiomegaly. Duly transfers pacemaker device. No active pulmonary disease. The patient has a history of having a CVA in she had a head CT today that was read by radiology is old posterior left parietal infarct, not present on 10/29/2018. 0 atherosclerosis and chronic small-vessel ischemic changes of the cerebral white matter. The patient is being admitted to observation status on the date of service of 01/16/2021. Chief Complaint: Syncopal episode Review of Systems Review of Systems: All systems reviewed & are unremarkable except as noted in HPI and below Constitutional: Constitutional: Reports as per HPI and Reports no additional constitutional complaints Eyes: Eyes: Reports as per HPI and Reports no additional eye complaints ENT: Reports system reviewed and no additional complaints, except as documented and Reports Normal hearing present Cardiovascular: Cardiovascular: Reports no additional cardiovascular complaints Respiratory: Respiratory: Reports no additional respiratory complaints and Reports no additional respiratory complaints Gastrointestinal: Gastrointestinal: Reports as per HPI and Reports no additional gastrointestinal complaints Musculoskeletal: Musculoskeletal: Reports no additional musculoskeletal complaints Integumentary/Breasts: Skin/Breast: Reports system reviewed and no additional complaints, except as docu and Reports as per HPI Neurologic: Reports system reviewed and no additional complaints, except as documented, Reports as per HPI and Reports Normal hearing present Psychiatric: Psychiatric: Reports no additional psychiatric complaints and Reports as per HPI Endocrine: Endocrine: Reports no additional endocrine complaints Hematologic/Lymphatic: Hematologic/Lymphatic: Reports no additional hematologic/lymphatic complaints Allergic/Immunologic: Allergic/Immunologic: Reports no additional allergic/immunologic complaints [facility] Past Medical History Medical History (Updated 01/16/21 @ 19:52 by Cordelia Kurtz NP) Arthritis Atrial fibrillation paroxysmal on anticoagulation Dementia History of COVID-19 History of CVA (cerebrovascular accident) 2019 affected judgment no focal weakness HTN (hypertension), malignant Hyperlipidemia Pacemaker Surgical History Surgical History (Updated 01/16/21 @ 19:28 by Cordelia Kurtz NP) H/O tubal ligation History of appendectomy History of cataract extraction Hx of cholecystectomy Family History Family History Mother Alzheimer
[2021-01-16] MEDS: ATORVASTATIN 40 MG TABLET PO (21:13)
[2021-01-16] MEDS: FLUTICASONE PROPIONATE 0.05% NA SPR 16 GM BTL (*BKC) 1 SPRAY NASAL (21:13)
[2021-01-16 21:34] LABS: Troponin I < 0.012 ng/mL (0.000-0.034)
[2021-01-16 23:38] LABS: Add Urine Microscopic? YES; Appearance Urine Cloudy (Clear); Bacteria Urine Trace /hpf; Bilirubin Urine Negative (Negative); Color Urine Yellow (Yellow); Glucose Urine UA Negative (Negative); Ketones Urine Negative (Negative); Leukocyte Esterase Ur 2+ LEU/UL (Negative); Mucus Urine Heavy /lpf; Nitrate Urine Negative (Negative); Protein Urine Negative (Negative); RBC Urine 0-2 /hpf (0-2); Specific Grav Ur 1.015 (1.001-1.035); Squamous Epithelial Cell Urine Few /hpf (Few); Urobilinogen Urine Negative mg/dL (<2.0); WBC Urine 21-30 /hpf
[2021-01-16 23:50] LABS: Blood Urine Negative (Negative)
[2021-01-17] VITALS (20 sets, daily range): BP systolic 89–154; BP diastolic 59–95; PULSE 60–88; RESP 16–20; TEMP 36.1–37; O2SAT 96–100
--- NOTE | 2021-01-17 | ECHO_ITS ---
Patient Info Name: Ashly Larry Age: 85 years : 1935 Gender: Female Ht: 60 in Wt: 132 lbs BSA: 1.61 m2 HR: 60 bpm BP: 126 / 67 mmHg Heart Rhythm: Sinus Rhythm Technical Quality: Fair Exam Date: 01/17/2021 1:26 PM Exam Location: [facility] Pulmonary Patient Status: Inpatient Admit Date: 01/16/2021 Staff Ordering Physician: Cordelia Kurtz NP Fire Protection Designer: Kennedi Azevedo RDCS Attending Provider: Eva Reyes PA-C Referring Physician: Tessie BURROWS; Exam Type: CA echo doppler color flow Study Info Indications R55 - Syncope and collapse Complete two-dimensional, color flow and Doppler transthoracic echocardiogram is performed. Summary 1. Complete two-dimensional, color flow and Doppler transthoracic echocardiogram is performed. 2. Left ventricular systolic function is normal, estimated at 60-65%. 3. The left ventricular diastolic function is grade I diastolic dysfunction. 4. Right ventricular chamber dimension is normal. 5. Linear artifact in right ventricle suggestive of catheter(s), pacemaker lead(s), or ICD lead(s). 6. Left atrial chamber dimension is moderately enlarged. 7. There is mild aortic valve sclerosis. Left Ventricle Left ventricular chamber dimension is normal. Left ventricular systolic function is normal, estimated at 60-65%. The left ventricular diastolic function is grade I diastolic dysfunction. Right Ventricle Right ventricular chamber dimension is normal. Linear artifact in right ventricle suggestive of catheter(s), pacemaker lead(s), or ICD lead(s). Left Atria Left atrial chamber dimension is moderately enlarged. Right Atria Right atrial chamber dimension is normal. Aortic Valve The aortic valve is trileaflet. There is mild aortic valve sclerosis. Pulmonic Valve The pulmonic valve is normal. Mitral Valve The mitral valve has normal leaflets. There is trace mitral valve regurgitation. Tricuspid Valve The tricuspid valve leaflets are normal. Pericardium/Pleural The pericardium appears normal. Aorta The aortic root size at the sinus of Valsalva is normal. Left Ventricular Outflow Tract Name Value Normal LVOT 2D LVOT Diameter 2.0 cm LVOT Doppler LVOT Peak Gradient 4 mmHg LVOT Mean Gradient 2 mmHg LVOT VTI 24 cm LVOT VTI/AV VTI Ratio 0.9 LVOT Stroke Volume 76 ml LVOT CO 4.5 l/min LVOT CI 2.8 l/min/m2 Pulmonic Valve Name Value Normal RVOT Doppler RVOT Peak Gradient 1 mmHg PV Doppler PV Peak Gradient 2 mmHg Mitral Valve
[2021-01-17 05:47] LABS: Basophils Absolute Auto 0.1 K/mm3 (0.0-0.1); Basophils Percent Auto 0.6 % (0.2-1.2); Eosinophils Absolute Auto 0.1 K/mm3 (0-0.3); Eosinophils Percent Auto 1.4 % (0-4.4); Hemoglobin 12.6 g/dL (12.0-15.0); Immature Granulocyte Absolute 0.02 K/mm3 (0.00-0.031); Immature Granulocyte Percent A 0.2 % (0-0.5); Lymphocytes Absolute Auto 2.18 K/mm3 (0.9-3.2); Lymphocytes Percent Auto 23.2 % (18.3-44.2); Mean Corpuscular HGB Conc 33.2 g/dl (32-36); Mean Corpuscular Hemoglobin 32.9 pg (26-34); Mean Corpuscular Volume 99.2 fl (80-100); Mean Platelet Volume 10.3 fl (7.4-10.4); Monocytes Absolute Auto 0.9 K/mm3 (0.1-0.6); Monocytes Percent Auto 9.9 % (2.6-8.5); Neutrophils Absolute Auto 6.1 K/mm3 (1.3-6.7); Neutrophils Percent Auto 64.7 % (45.5-73.1); Platelet Count Result 247 k/mm3 (150-375); Red Blood Count 3.83 M/mm3 (4.2-5.4); Red Cell Distribution Width 14.1 % (11.5-14.5); White Blood Count 9.4 K/mm3 (4.5-10.0)
[2021-01-17 06:18] LABS: Lactic Acid Reflex 1.7 mmol/L (0.7-2.1)
[2021-01-17 06:39] LABS: Alanine Aminotransferase 23 U/L (4-35); Albumin Level 3.6 g/dL (3.5-5.1); Alkaline Phosphatase 66 U/L (38-126); Anion Gap 6 mmol/L (8-16); Aspartate Amino Transferase 25 U/L (14-36); Bilirubin,Total 2.3 mg/dL (0.2-1.3); Blood Urea Nitrogen 16 mg/dL (7-17); Calcium 9.1 mg/dL (8.4-10.2); Carbon Dioxide 25 mmol/L (22-30); Chloride 104 mmol/L (98-107); Estimated CRCL calculation 30 ml/min; Estimated Glomerular Filt Rate 53; Glucose 110 mg/dL (65-110); Magnesium 1.9 mg/dL (1.6-2.3); Potassium 3.9 mmol/L (3.4-5.0); Sodium 135 mmol/L (137-145)
[2021-01-17] MEDS: AMIODARONE HCL 100 MG TABLET PO (08:47)
[2021-01-17] MEDS: ASPIRIN 81 MG ENTERIC TABLET PO (08:47)
[2021-01-17] MEDS: APIXABAN 5 MG TABLET PO ×2 (08:47→16:26)
[2021-01-17] MEDS: FLUTICASONE PROPIONATE 0.05% NA SPR 16 GM BTL (*BKC) 1 SPRAY NASAL ×2 (08:47→16:26)
[2021-01-17 12:29] LABS: Lactate Dehydrogenase 369 U/L (313-618)
--- NOTE | 2021-01-17 13:58 | PM.IMPN ---
Progress Note: A&P Assessment and Plan (1) Syncope: Code(s): R55 - Syncope and collapse Status: Acute Assessment and Plan: Unclear etiology at this time but suspect could be due to orthostatic hypotension -will order Ravindra hose and cortisol in the morning -carotid ultrasound without stenosis, pacemaker interrogation without abnormalities, TSH normal, echo pending -spoke with the family about plan of care. They say that she she has a history of syncope and was just hospitalized for this [address] [facility]. I did review those records and they she did not find any etiology for the syncope. (2) Dementia: Code(s): F03.90 - Unspecified dementia without behavioral disturbance Status: Chronic Assessment and Plan: Chronic and at baseline (3) HTN (hypertension), malignant: Code(s): I10 - Essential (primary) hypertension Status: Chronic Assessment and Plan: Last blood pressure 147/66 -continue lisinopril (4) Hyperlipidemia: Code(s): E78.5 - Hyperlipidemia, unspecified Status: Chronic Assessment and Plan: Chronic -continue atorvastatin (5) Pacemaker: Code(s): Z95.0 - Presence of cardiac pacemaker Status: Chronic Assessment and Plan: Daughter at bedside states that EMS said that her mother's heart stopped for a very long time and that the defibrillation was delayed. With that being said, I read the EMS report which said that she was in AFib and then started pacing to normal sinus rhythm and her symptoms resolved. I contacted the pacemaker company who said that she had no alarm reviews, no signs of AFib recently, and no defibrillations. She has atrial pacing 72% is time and V pacing at 4.7% of the time -no evidence of cardiac dysrhythmia causing the syncope (6) Atrial fibrillation: Code(s): I48.91 - Unspecified atrial fibrillation Status: Chronic Assessment and Plan: Continue with amiodarone and Eliquis (7) Pyuria: Code(s): R82.81 - Pyuria Status: Acute Assessment and Plan: UA shows some white blood cells and 2+ leuk us but no nitrates or blood. Patient has no leukocytosis, symptoms or fevers. Will wait for urine culture prior to treating Time Spent With Patient Time with patient: 25 - 35 minutes Subjective Date/time seen: 01/17/21 13:58 Interval history: Pt is a 85-year-old female here for syncope. Patient was seen today with family at bedside. She says she feels great with no issues. She specifically denies chest pain, dizziness, lightheadedness, shortness of breath, diarrhea, dysuria or constipation. She did get up to use the bathroom earlier and was sure if she was lightheaded but did not think she was. With that being said, patient is a poor historian due to cognitive dysfunction after multiple strokes. I reviewed the events with her and family at bedside. She said that she was in her normal state health and then went to the bathroom and was urinating in the next thing she remembers was waking up. She did not have any chest pain or lightheadedness at times but really does not remember much. Daughter at bedside states that EMS said that her mother's heart stopped for a very long time and that the defibrillator was delayed. With that being said, I read the EMS report which said that she was in AFib and then started pacing to normal sinus rhythm. I contacted the pacemaker company who said that she had no alarm reviews, no signs of AFib recently, and no defibrillations. Review of Systems Review of Systems: All systems reviewed & are unremarkable except as noted in HPI and below Exam Narrative: General: Well developed well nourished patient in NAD HEENT: normocephalic Neck: supple Neuro: Alert and oriented to herself and hospital but unsure of the date. Moves all limbs spontaneously. Cranial nerves 2-12 appear to be intact. Strength
--- NOTE | 2021-01-17 16:24 | WPDNEURCNPN ---
Assessment and Plan Additional Plan syncope secondary to orthostatic hypotension 2. Ongoing dementia with no hallucination 3. Question atrial fibrillation with no pacemaker abnormalities for the company 4. Medications as such 5 question seizures will obtain the routine EEG Consult date: 01/17/21 HPI: Ashly Larry is a 85 year old female admitted to the hospital for the complaints of recurrent syncopal episode in fact patient was recently at [facility] about 3 weeks ago where she was being treated for diverticulosis. She did have a syncopal episode there and has also had syncopal episode previously for which she had the placement of pacemaker she has had a stroke in 2019 in addition to the ongoing diagnosis of dementia with sundowning phenomena patient reportedly had a syncopal episode when she went out to eat with her daughter though she did not fall to the ground but she was unresponsive briefly there was no history of head trauma initially her electrolytes were normal chest x-ray documented cardiomegaly pacemaker device was functioning the CT scan documented old posterior left parietal lobe infarct and she has ongoing history of atrial fibrillation with underlying dementia and hypertension, she has never smoker drinker and meds at the time of admission included the amiodarone, apixaban, aspirin, atorvastatin and lisinopril Review of Systems Review of Systems: All systems reviewed & are unremarkable except as noted in HPI and below PMFSH Past Medical History Medical History Arthritis Atrial fibrillation paroxysmal on anticoagulation Dementia History of COVID-19 History of CVA (cerebrovascular accident) 2019 affected judgment no focal weakness HTN (hypertension), malignant Hyperlipidemia Pacemaker Surgical History Surgical History H/O tubal ligation History of appendectomy History of cataract extraction Hx of cholecystectomy Family History Family History Mother Alzheimer disease Father Lung cancer Social History Social History Social History: The patient lives in [place] and has constant care 24/7 around the clock. The patient has 6 children. She is . 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 No alcohol, tobacco, or illicit drugs. Her daughter Viridiana farley is her healthcare power traffic law attorney for healthcare. The patient does not want to live in a vegetative state. Code status full code Smoking status: Never smoker Second hand tobacco smoke exposure: No Alcohol intake: never Substance use: never Substance use type: does not use Spiritual care concerns: No Meds Home Medications and Allergies Home Medications Medication Instructions Recorded Confirmed Type acetaminophen 650 mg Q4-6H PRN 01/16/21 01/16/21 History albuterol sulfate 2 puff INHALATION DAILY PRN 01/16/21 01/16/21 History amiodarone 100 mg PO DAILY 01/16/21 01/16/21 History apixaban [Eliquis] 5 mg PO BID 01/16/21 01/16/21 History aspirin [Aspirin Low Dose] 81 mg PO DAILY 01/16/21 01/16/21 History atorvastatin 40 mg PO HS 01/16/21 01/16/21 History docusate sodium 100 mg PO DAILY PRN 01/16/21 01/16/21 History fluticasone propionate 1 spray INTRANASAL BID 01/16/21 01/16/21 History lisinopril 20 mg PO DAILY 01/16/21 01/16/21 History Allergies Allergy/AdvReac Type Severity Reaction Status Date / Time Penicillins Allergy Unknown Verified 01/16/21 19:17 Sulfa (Sulfonamide AdvReac Unknown Verified 01/16/21 19:17 Antibiotics) tramadol AdvReac Nausea Verified 01/16/21 19:17 Vital Signs Vital Signs - 24 hr 01/16/21 17:02 01/16/21 17:44 01/16/21 19:17 Temperature 36.6 C 36.6 C Pulse Rate 60 59 L 59 L Respiratory Rate 14 18 18 Blood Pressure 126/69 148/65 H 148/65 H Pulse Oximetry 100 99 99 11/0
[2021-01-17] MEDS: ATORVASTATIN 40 MG TABLET PO (20:17)
[2021-01-17] MEDS: lisinopriL 20 MG TABLET PO (20:17)
[2021-01-18] VITALS (9 sets, daily range): BP systolic 120–146; BP diastolic 63–87; PULSE 59–68; RESP 16–20; TEMP 36.4–36.5; O2SAT 98–99
[2021-01-18] MEDS: FLUTICASONE PROPIONATE 0.05% NA SPR 16 GM BTL (*BKC) 1 SPRAY NASAL (09:58)
[2021-01-18] MEDS: AMIODARONE HCL 100 MG TABLET PO (09:58)
[2021-01-18] MEDS: APIXABAN 5 MG TABLET PO (09:59)
[2021-01-18] MEDS: ASPIRIN 81 MG ENTERIC TABLET PO (09:59)
--- NOTE | 2021-01-18 10:38 | P.NEURO_ITS ---
Neurology EEG Report General Information Date of Study: 01/18/21 TEST eeg DIAGNOSIS Recurrent syncopal episodes CONDITION OF RECORDING awake drowsy and sleep EEG NUMBER [id number] CLINICAL HISTORY patient reportedly was out to dinner with family when she got up and went to the bathroom and lost consciousness this previous history of strokes 2 years ago EEG DESCRIPTION basic resting occipital frequency consists of medium voltage 8 hertz per 2nd alpha admixed with low-voltage 15 to 18 hertz per 2nd beta and intermittent 6 to 7 hertz per 2nd theta. Bilateral symmetrical sleep activity seen during sleep hyperventilation not done photic stimulation not done. Paroxysmal. Nonfocal. Nonlateralizing. IMPRESSION Mildly abnormal record due to the presence of excessive amount of the slow act ivity of the background otherwise there is no evidence of any paroxysmal discharge clinical correlation recommended these abnormalities could be suggestive of underlying organic or metabolic encephalopathy or else early neurodegenerative process
--- NOTE | 2021-01-18 11:41 | PM.DS ---
DS: Admitting Diagnosis Discharge Date 01/18/21 Admitting Diagnosis syncope DS: Discharge Diagnosis Discharge Diagnosis (1) Syncope: Code(s): R55 - Syncope and collapse Status: Acute Assessment and Plan: Suspect could be due to orthostatic hypotension--pt also recent had UTI and diarrhea which could worsen her orthostatic bp -Compression hose in place and told to wear these when up and walking around -carotid ultrasound without abnoramlity, pacemaker interrogation without abnormalities, TSH normal, echo without significant abnormality -spoke with the family about plan of care. They say that she she has a history of syncope and was just hospitalized for this 3 weeks ago at [facility]. I did review those records and they she did not find any etiology for the syncope. -suspect this is due to orthostatic hypotension. Patient also has possible UTI and did have diarrhea recently all which could be contributing. PE seems less likely since patient has no chest pain or shortness of breath whatsoever. (2) Dementia: Code(s): F03.90 - Unspecified dementia without behavioral disturbance Status: Chronic Assessment and Plan: Chronic and at baseline (3) HTN (hypertension), malignant: Code(s): I10 - Essential (primary) hypertension Status: Chronic Assessment and Plan: Last blood pressure 128/81 -continue lisinopril (4) Hyperlipidemia: Code(s): E78.5 - Hyperlipidemia, unspecified Status: Chronic Assessment and Plan: Chronic -continue atorvastatin (5) Pacemaker: Code(s): Z95.0 - Presence of cardiac pacemaker Status: Chronic Assessment and Plan: I contacted the pacemaker company who said that she had no alarm reviews, no signs of AFib recently, and no defibrillations. She has atrial pacing 72% is time and V pacing at 4.7% of the time -no evidence of cardiac dysrhythmia causing the syncope (6) Atrial fibrillation: Code(s): I48.91 - Unspecified atrial fibrillation Status: Chronic Assessment and Plan: Continue with amiodarone and Eliquis (7) UTI (urinary tract infection): Code(s): N39.0 - Urinary tract infection, site not specified Status: Acute Assessment and Plan: Urine culture growing 50,000- 100,000 E coli. Family states the patient had a UTI a few weeks ago and was on several antibiotics. Multiple antibiotics made her sick so she ended up changing to Bactrim which he was able to finish but never really fully recovered. Since her urine culture is still growing E coli and the patient is not feeling well, I am going to cover her with cefdinir. She has had this in the past and did okay with this. Sensitivities pending, will monitor these until finalized DS: Summary Hospital Course Hospital Course: DOS 01/18/21 Patient is an 85-year-old female who presented emergency room on 01/16/2021 for syncope. Patient and family states that she was recently hospitalized for syncope, diverticulitis, and UTI and has not been feeling the best. She has been having nausea and vomiting as well as diarrhea. She had been feeling better for couple days and they want to eat. While she was the bathroom urinating she passed out. She was confused and hard to wake up for several minutes until EMS arrived. In the ambulance the patient came 2 and was back to her baseline. She was admitted to the hospitalist service for observation. Her head CT showed old strokes but no acute findings. She underwent an EEG due to her confusion which did not show evidence of seizure. Carotid ultrasounds were negative. Echo did not show any reason for her syncope. Her pacemaker was interrogated which had no alarm reviews. The patient was found to be orthostatic and Ravindra hose applied. Her blood pressure improved. She had no further symptoms while hospitalized. Her Urine culture growing ecoli 50,000-100,000.
== END 2021-01-18 12:40 | disposition home or self-care (01) ==
LOC: ANHED 13:45 → ANH2MED 17:54
PROVIDERS: Nurse Practitioner; Physician Assistant; Admitting Provider Internal Medicine; Emergency Provider Emergency Medicine; Visit Provider Internal Medicine
DX: R55 Syncope and collapse (principal); N39.0 Urinary tract infection, site not specified; B96.20 Unspecified Escherichia coli [E. coli] as the cause of diseases classified elsewhere; F03.90 Unspecified dementia, unspecified severity, without behavioral disturbance, psychotic disturbance, mood disturbance, and anxiety; I10 Essential (primary) hypertension; E78.5 Hyperlipidemia, unspecified; I48.91 Unspecified atrial fibrillation; Z95.0 Presence of cardiac pacemaker; Z86.73 Personal history of transient ischemic attack (TIA), and cerebral infarction without residual deficits
CPT/HCPCS: 36415; 70450; 71045; 80053; 81001; 82533; 82607; 82728; 83605; 83615; 83735; 84443; 84484; 85025; 87077; 87086; 87088; 87186; 93005; 93306; 93880; 95816; 97162; 97165; 99285; A9270; G0378

== ENCOUNTER 2021-09-02 08:51 | Emergency (ER) | payer MEDICARE, OTHER, SELFPAY ==
--- NOTE | ~2021-09-02 | CT_ITS ---
EXAMINATION: CT pelvis wo con DATE: 09/02/2021 10:08 INDICATION: Low back and coccyx pain post fall TECHNIQUE: High resolution computed tomography (CT) of the pelvis was performed without intravenous c ontrast. Additional sagittal and coronal reconstructions were performed. Automated exposure control a nd iterative reconstruction technique were employed. The dose-length product was 264.87 mGy-cm. COMPARISON: CT abdomen and pelvis dated 05/25/2020 FINDINGS: Bone alignment is normal. No fracture. Severe lower lumbar spondylosis with severe disc height loss a nd degenerative endplate changes at L4-L5 and L5-S1. Bilateral lower lumbar facet osteoarthritis, sev ere at L4-L5 and moderate at L5-S1. This contributes to moderate neural foraminal stenosis bilaterall y at both levels. Disc bulges result in mild central canal stenosis at both L3-L4 and L4-L5. Mild jose ateral hip and sacroiliac osteoarthritis. Osteitis pubis. Prominent diverticulosis along the visualiz ed descending and sigmoid colon without adjacent from 3 change to suggest diverticulitis. Bladder, an teverted uterus and bilateral adnexa are unremarkable. No free fluid in the pelvis. No pathologically enlarged pelvic or inguinal lymphadenopathy. Small bilateral inguinal hernias containing fat on the left and a short segment of nonobstructed small bowel on the right. IMPRESSION: 1. Severe lower lumbar spondylosis. No acute osseous abnormality. 2. Diverticulosis. 3. Small bilateral inguinal hernias containing fat on the left and short segment of nonobstructed sma ll bowel on the right. Reviewed, dictated and finalized at location B. IMPRESSION: 1. Severe lower lumbar spondylosis. No acute osseous abnormality. 2. Diverticulosis. 3. Small bilateral inguinal hernias containing fat on the left and short segmen t of nonobstructed small bowel on the right.
[2021-09-02 09:00] VITALS: BP 166/84; PULSE 65; RESP 14; TEMP 36.7; O2SAT 98
--- NOTE | 2021-09-02 09:53 | ED.BACK ---
HPI - Back Pain/Injury General Chief Complaint: Back Pain/Injury Stated Complaint: fall with back pain Time Seen by Provider: 09/02/21 09:24 Source: patient and family Mode of arrival: wheelchair Limitations: no limitations History of Present Illness HPI Narrative: Patient is an 86-year-old female who presents to the ED with report of fall and low back pain. Daughter at bedside assisted in providing information. Daughter reports patient fell while transferring to the toilet on Sunday. She has a history of a CVA and requires assistance with transfers and walking. She uses a walker or wheelchair otherwise. Patient fell backwards onto her back, but did not hit her head or lose consciousness. Daughter did witness fall and also denies HI. The fall was mechanical, no prodromal symptoms. Patient complains of pain to her low back/coccyx region. She has been taking Tylenol at home, but denied relief with this. Her family has also been giving her ibuprofen. Patient is on Eliquis. She does have a history of osteoporosis, PCP recommended she come to the ED for imaging. Daughter also reports patient has been using the bathroom more frequently and is prone to UTIs. Patient denies any dysuria or hematuria. Patient denies new weakness, incontinence, saddle anesthesia. Related Data Home Medications Medication Instructions Recorded Confirmed acetaminophen 325 mg tablet 650 mg Q4-6H PRN Pain 01/16/21 01/16/21 albuterol sulfate 90 mcg/actuation 2 puff inhalation DAILY PRN 01/16/21 01/16/21 aerosol inhaler shortness of breath amiodarone 200 mg tablet 100 mg PO DAILY 01/16/21 01/16/21 apixaban 5 mg tablet (Eliquis) 5 mg PO BID 01/16/21 09/02/21 aspirin 81 mg tablet,delayed 81 mg PO DAILY 01/16/21 01/16/21 release (Josie Low Dose Aspirin) atorvastatin 40 mg tablet 40 mg PO HS 01/16/21 01/16/21 docusate sodium 100 mg capsule 100 mg PO DAILY PRN Constipation 01/16/21 01/16/21 fluticasone propionate 50 1 spray intranasal BID 01/16/21 01/16/21 mcg/actuation nasal spray,suspension lisinopril 20 mg tablet 20 mg PO DAILY 01/16/21 01/16/21 Allergies Allergy/AdvReac Type Severity Reaction Status Date / Time Penicillins Allergy Unknown Verified 09/02/21 10:12 cephalexin [From Keflex] AdvReac Vomiting Verified 09/02/21 12:56 Sulfa (Sulfonamide AdvReac Unknown Verified 09/02/21 10:12 Antibiotics) tramadol AdvReac Nausea Verified 09/02/21 10:12 Review of Systems Review of Systems: CONSTITUTIONAL: Denies fever, chills. EYES: Denies vision changes. CARDIOVASCULAR: Denies chest pain. RESPIRATORY: Denies cough or dyspnea. GASTROINTESTINAL: Denies abdominal pain, nausea, vomiting, incontinence. GENITOURINARY: Reports urinary frequency. Denies dysuria, incontinence, or hematuria. MUSCULOSKELETAL: Reports low back/coccyx pain. NEUROLOGIC: Denies numbness, tingling, or weakness. All systems reviewed & are unremarkable except as noted in HPI and below PMFSH Past Medical History Medical History Arthritis Arthritis Atrial fibrillation paroxysmal on anticoagulation Atrial fibrillation with rapid ventricular response (Unknown) Cerebrovascular accident (~2019) Residual left-sided weakness. COVID-19 (~12/2019) Current use of medical terminologist anticoagulation Dementia Elevated liver enzymes History of COVID-19 History of CVA (cerebrovascular accident) 2019 affected judgment no focal weakness HTN (hypertension), malignant Hyperlipidemia Hyperlipidemia Hypertension Pacemaker Paroxysmal atrial fibrillation Septic shock (~05/18/20) Surgical History Surgical History H/O tubal ligation History of appendectomy History of appendectomy History of bilateral cataract extraction History of cataract extraction History of tubal ligation Hx of cholecystectomy S/P laparoscopic cholecystectomy Family History Family History (Reviewed 01/17/21 @ 16
[2021-09-02 10:51] LABS: Basophils Absolute Auto 0.1 K/mm3 (0.0-0.1); Basophils Percent Auto 0.9 % (0.2-1.2); Eosinophils Absolute Auto 0.1 K/mm3 (0-0.3); Eosinophils Percent Auto 1.4 % (0-4.4); Hematocrit 38.2 % (37.0-47.0); Hemoglobin 12.4 g/dL (12.0-15.0); Immature Granulocyte Absolute 0.02 K/mm3 (0.00-0.031); Immature Granulocyte Percent A 0.3 % (0-0.5); Lymphocytes Absolute Auto 1.04 K/mm3 (0.9-3.2); Lymphocytes Percent Auto 15.1 % (18.3-44.2); Mean Corpuscular HGB Conc 32.5 g/dl (32-36); Mean Corpuscular Volume 98.7 fl (80-100); Monocytes Absolute Auto 0.9 K/mm3 (0.1-0.6); Monocytes Percent Auto 12.5 % (2.6-8.5); Neutrophils Absolute Auto 4.8 K/mm3 (1.3-6.7); Neutrophils Percent Auto 69.8 % (45.5-73.1); Platelet Count Result 259 k/mm3 (150-375); Red Blood Count 3.87 M/mm3 (4.2-5.4); Red Cell Distribution Width 13.6 % (11.5-14.5); White Blood Count 6.9 K/mm3 (4.5-10.0)
[2021-09-02 10:57] LABS: Alanine Aminotransferase 17 U/L (6-35); Albumin Level 3.6 g/dL (3.5-5.1); Alkaline Phosphatase 68 U/L (38-126); Anion Gap -1 mmol/L (8-16); Aspartate Amino Transferase 20 U/L (14-36); Bilirubin,Total 2.2 mg/dL (0.2-1.3); Blood Urea Nitrogen 14 mg/dL (7-17); Calcium 8.5 mg/dL (8.4-10.2); Carbon Dioxide 31 mmol/L (22-30); Chloride 105 mmol/L (98-107); Estimated CRCL calculation 28 ml/min; Estimated Glomerular Filt Rate 47; Glucose 105 mg/dL (65-110); Potassium 4.2 mmol/L (3.4-5.0); Sodium 135 mmol/L (137-145)
[2021-09-02 11:22] LABS: Appearance Urine Clear (Clear); Bilirubin Urine Negative (Negative); Blood Urine Negative (Negative); Color Urine Yellow (Yellow); Glucose Urine UA Negative (Negative); Ketones Urine Negative (Negative); Leukocyte Esterase Ur 2+ LEU/UL (Negative); Nitrate Urine Negative (Negative); Protein Urine Negative (Negative); Specific Grav Ur 1.015 (1.001-1.035); Urobilinogen Urine 0.2 mg/dL (<2.0); pH Urine 6.5 (5.0-9.0)
[2021-09-02 11:27] LABS: Mucus Urine Rare /lpf; RBC Urine 0-2 /hpf (0-2); Squamous Epithelial Cell Urine Rare /hpf (Few)
[2021-09-02 11:28] LABS: Add Urine Microscopic? YES
[2021-09-02] MEDS: SODIUM CHLORIDE 0.9% IV 500 ML 999 ML IV CONT (11:56)
[2021-09-02] MEDS: CEPHALEXIN 500 MG CAPSULE PO (13:10)
[2021-09-02] MEDS: ONDANSETRON INJ 4 MG/2 ML VIAL (13:10)
[2021-09-02 13:11] VITALS: BP 116/84; PULSE 64; RESP 14; O2SAT 97
[2021-09-02 13:45] VITALS: BP 150/80; PULSE 87; RESP 19; O2SAT 99
== END 2021-09-02 13:45 | disposition home or self-care (01) ==
PROVIDERS: Physician Assistant; Emergency Provider Emergency Medicine
DX: S39.92XA Unspecified injury of lower back, initial encounter (principal); N30.00 Acute cystitis without hematuria; I48.0 Paroxysmal atrial fibrillation; I69.954 Hemiplegia and hemiparesis following unspecified cerebrovascular disease affecting left non-dominant side; F03.90 Unspecified dementia, unspecified severity, without behavioral disturbance, psychotic disturbance, mood disturbance, and anxiety; I10 Essential (primary) hypertension; E78.5 Hyperlipidemia, unspecified; Z86.16 Personal history of COVID-19; Z95.0 Presence of cardiac pacemaker; Z79.01 Long term (current) use of anticoagulants; Z79.82 Long term (current) use of aspirin; Z98.42 Cataract extraction status, left eye; Z98.41 Cataract extraction status, right eye; M47.816 Spondylosis without myelopathy or radiculopathy, lumbar region; K57.90 Diverticulosis of intestine, part unspecified, without perforation or abscess without bleeding; K40.20 Bilateral inguinal hernia, without obstruction or gangrene, not specified as recurrent; W18.39XA Other fall on same level, initial encounter
CPT/HCPCS: 36415; 72192; 80053; 81001; 85025; 87086; 87088; 96365; 96375; 99284; A9270; J0131; J2405; J7040